=== PATIENT | male | born 1945 | race Caucasian/White ===

== ENCOUNTER 2019-07-02 14:06 | Outpatient (CLI) | payer MEDICARE, MEDICAID, SELFPAY ==
[2019-07-02 16:10] LABS: Prostate Specific Antigen 4.4 ng/mL (< OR = 4.0)
== END 2019-07-02 14:07 | disposition home or self-care (01) ==
LOC: ANHLAB 14:09
PROVIDERS: PCP Family Medicine; Visit Provider Family Medicine
DX: N40.1 Benign prostatic hyperplasia with lower urinary tract symptoms (principal)
CPT/HCPCS: 36415; 84153

== ENCOUNTER 2020-03-15 08:02 | Outpatient (CLI) | payer MEDICARE, MEDICAID, SELFPAY ==
[2020-03-15 08:29] LABS: Hematocrit 29.9 % (42.0-52.0); Mean Corpuscular HGB Conc 30.1 g/dl (32-36); Mean Corpuscular Hemoglobin 21.2 pg (26-34); Mean Corpuscular Volume 70.5 fl (80-100); Mean Platelet Volume 9.1 fl (7.4-10.4); Platelet Count Result 280 k/mm3 (150-375); Red Blood Count 4.24 M/mm3 (4.6-6.20); White Blood Count 5.9 K/mm3 (4.5-10.0)
[2020-03-15 08:42] LABS: Anion Gap 4 mmol/L (8-16); Blood Urea Nitrogen 23 mg/dL (9-20); Carbon Dioxide 29 mmol/L (22-30); Chloride 104 mmol/L (98-107); Cholesterol 141 mg/dL (0-200); Estimated Glomerular Filt Rate > 60; Glucose 109 mg/dL (75-110); HDL Direct 46 mg/dL; Magnesium 1.9 mg/dL (1.6-2.3); Potassium 4.2 mmol/L (3.4-5.0); Sodium 137 mmol/L (137-145); Triglycerides 57 mg/dL (<150)
[2020-03-15 08:52] LABS: LDL Cholesterol Direct 84 mg/dL
[2020-03-15 09:11] LABS: Prostate Specific Antigen 4.8 ng/mL (< OR = 4.0)
== END 2020-03-15 08:03 | disposition home or self-care (01) ==
PROVIDERS: PCP Family Medicine; Visit Provider Family Medicine
DX: E78.2 Mixed hyperlipidemia (principal); R25.2 Cramp and spasm; N40.1 Benign prostatic hyperplasia with lower urinary tract symptoms; E87.8 Other disorders of electrolyte and fluid balance, not elsewhere classified
CPT/HCPCS: 36415; 80048; 80061; 83735; 84153; 85027

== ENCOUNTER 2020-04-03 07:01 | Outpatient (NON) | payer MEDICARE, MEDICAID, SELFPAY ==
[2020-04-03 23:36] LABS: SARS-CoV-2 RNA PCR Negative
== END 2020-04-03 07:02 ==
LOC: ANHCOVIDDT 07:01
PROVIDERS: PCP Family Medicine; Visit Provider Family Medicine
DX: R68.89 Other general symptoms and signs (principal); Z20.828 Contact with and (suspected) exposure to other viral communicable diseases
CPT/HCPCS: 87635; C9803; U0003

== ENCOUNTER 2020-06-07 11:52 | Outpatient (CLI) | payer MEDICARE, MEDICAID, SELFPAY ==
[2020-06-07 12:35] LABS: Anion Gap 2 mmol/L (8-16); Blood Urea Nitrogen 23 mg/dL (9-20); Calcium 8.9 mg/dL (8.4-10.2); Carbon Dioxide 29 mmol/L (22-30); Chloride 106 mmol/L (98-107); Estimated Glomerular Filt Rate > 60; Glucose 115 mg/dL (75-110); Magnesium 1.7 mg/dL (1.6-2.3); Sodium 137 mmol/L (137-145)
[2020-06-07 13:40] LABS: Folic Acid 9.6 ng/mL (2.76->20)
== END 2020-06-07 11:53 | disposition home or self-care (01) ==
LOC: ANHLAB 11:54
PROVIDERS: Family Provider Family Medicine; PCP Family Medicine; Visit Provider Nurse Practitioner Family
DX: E87.8 Other disorders of electrolyte and fluid balance, not elsewhere classified (principal); R25.2 Cramp and spasm
CPT/HCPCS: 36415; 80048; 82607; 82746; 83735

== ENCOUNTER 2020-06-15 15:33 | Outpatient (CLI) | payer MEDICARE, MEDICAID, SELFPAY ==
--- NOTE | ~2020-06-15 | XR_ITS ---
XR lumbar spine 2-3V 06/15/2020 16:03 Indication: Low back pain. Legs feel tired. Procedure: 3 views of the lumbar spine Comparison: 08/24/2003 Findings: There is disc narrowing at all lumbar levels. There is grade 1 degenerative spondylolisthes is at L4-5 secondary to facet hypertrophy. There is moderate facet hypertrophy at L3-4, L4-5 and L5-S 1. There is atherosclerosis of the aorta which has progressed since prior study. No acute fracture or traumatic malalignment. Impression: 1: Interval progression of moderate lumbar spondylosis since prior examination with development of gr eli 1 degenerative spondylolisthesis at L4-5. Reviewed, dictated and finalized at location A. OWCASE TURNER Impression: 1: Interval progression of moderate lumbar spondylosis since prior examination with development of grade 1 degenerative spondylolisthesis at L4-5.
== END 2020-06-15 15:34 | disposition home or self-care (01) ==
LOC: ANHIMG 15:39
PROVIDERS: PCP Family Medicine; Visit Provider Nurse Practitioner Family
DX: R25.2 Cramp and spasm (principal); M47.896 Other spondylosis, lumbar region
CPT/HCPCS: 72100

== ENCOUNTER 2020-06-21 10:07 | Outpatient (CLI) | payer MEDICARE, MEDICAID, SELFPAY ==
--- NOTE | ~2020-06-21 | XR_ITS ---
EXAMINATION: XR hip BI wo pelvis INDICATION: Hip pain TECHNIQUE: Two views of each hip are obtained. COMPARISON: 07/03/2018; CT, 02/22/2015 FINDINGS: Bone alignment is normal. There is no fracture. There is mild osteoarthritis of the hips. A chronic sclerotic lesion is noted in the left femoral head. IMPRESSION: 1. Mild hip osteoarthritis without acute findings. Reviewed, dictated and finalized at location A. ER MILL OPERATOR
[2020-06-21 10:41] LABS: Hematocrit 23.6 % (42.0-52.0); Mean Corpuscular HGB Conc 27.1 g/dl (32-36); Mean Corpuscular Hemoglobin 16.8 pg (26-34); Mean Corpuscular Volume 61.9 fl (80-100); Mean Platelet Volume 9.4 fl (7.4-10.4); Platelet Count Result 366 k/mm3 (150-375); Red Blood Count 3.81 M/mm3 (4.6-6.20)
[2020-06-21 10:53] LABS: Hemoglobin 6.4 g/dL (14.0-18.0)
[2020-06-21 11:07] LABS: Anion Gap 5 mmol/L (8-16); Blood Urea Nitrogen 25 mg/dL (9-20); Carbon Dioxide 26 mmol/L (22-30); Chloride 109 mmol/L (98-107); Estimated Glomerular Filt Rate > 60; Glucose 108 mg/dL (75-110); Glucose 109 mg/dL (75-110); Potassium 4.5 mmol/L (3.4-5.0); Sodium 140 mmol/L (137-145)
== END 2020-06-21 10:08 | disposition home or self-care (01) ==
PROVIDERS: PCP Family Medicine; Visit Provider Nurse Practitioner Family
DX: R73.9 Hyperglycemia, unspecified (principal); D64.9 Anemia, unspecified; M16.0 Bilateral primary osteoarthritis of hip
CPT/HCPCS: 36415; 73521; 80048; 82947; 85027

== ENCOUNTER 2020-06-25 07:40 | Outpatient (RCR) | payer MEDICARE, MEDICAID, SELFPAY ==
[2020-06-24 11:44] LABS: Hematocrit 23.1 % (42.0-52.0)
[2020-06-24 12:37] LABS: Hemoglobin 6.4 g/dL (14.0-18.0)
[2020-06-25] VITALS (9 sets, daily range): BP systolic 126–139; BP diastolic 58–68; PULSE 86–100; RESP 14–16; TEMP 36.4–37.3; O2SAT 98–100
[2020-06-25] MEDS: diphenhydrAMINE HCl CAP 25 MG CAPSULE PO (08:46)
[2020-06-25] MEDS: methylPREDNISolone SOD SUCC 125 MG VIAL IV PUSH (08:46)
[2020-06-25] MEDS: SODIUM CHLORIDE 0.9% IV 250 ML 30 ML IV CONT (08:48)
[2020-06-25] MEDS: FUROSEMIDE INJ 40 MG/4 ML VIAL 20 MG IV PUSH (12:44)
== END 2020-09-22 23:59 | disposition home or self-care (01) ==
LOC: ANHCPCTRAN 07:40
PROVIDERS: PCP Family Medicine; Visit Provider Family Medicine
DX: D64.9 Anemia, unspecified (principal)
CPT/HCPCS: 36415; 36430; 85014; 85018; 86850; 86900; 86901; 86920; 96374; A9270; J1940; J2930; J7050; P9016

== ENCOUNTER 2020-07-15 08:31 | Outpatient (CLI) | payer MEDICARE, MEDICAID, SELFPAY ==
--- NOTE | 2020-07-15 08:36 | ECHO_ITS ---
Patient Info Name: Palmer Landry Age: 74 years : 1945 Gender: Male Ht: 68 in Wt: 173 lbs BSA: 1.95 m2 HR: 94 bpm BP: 154 / 75 mmHg Technical Quality: Good Exam Date: 07/15/2020 9:15 AM Exam Location: [facility] Patient Status: Outpatient Admit Date: 07/15/2020 Staff Ordering Physician: Delvis Hernández MD Materials Assistant: Latrice Cortez RDCS Attending Provider: Delvis Hernández MD Referring Physician: Edgar CHASE; Exam Type: CA echo doppler color flow Study Info Indications - CARDIAC MURMUR Complete two-dimensional, color flow and Doppler transthoracic echocardiogram is performed. Summary 1. Complete two-dimensional, color flow and Doppler transthoracic echocardiogram is performed. 2. Left ventricular chamber dimension is mildly enlarged. 3. Left ventricular systolic function is normal, estimated at 55-60%. 4. There is mildly increased left ventricular wall thickness. 5. The left ventricular diastolic function is grade I diastolic dysfunction. 6. E/e' 17 is elevated. 7. Global longitudinal strain is abnormal at -14.7%. 8. Left atrial chamber dimension is mildly enlarged. 9. There is moderate aortic valve sclerosis. 10. There is mild aortic valve stenosis based on a peak velocity of 242 cm/s, mean gradient of 15 mmHg, and aortic valve area of 1.6 cm2. 11. There is trace aortic valve regurgitation. 12. There is mild mitral valve regurgitation. 13. There is trace tricuspid valve regurgitation. 14. Mild pulmonary hypertension, estimated pulmonary arterial systolic pressure is 40 mmHg. Left Ventricle E/e' 17 is elevated. Global longitudinal strain is abnormal at -14.7%. Left ventricular chamber dimension is mildly enlarged. Left ventricular systolic function is normal, estimated at 55-60%. There is mildly increased left ventricular wall thickness. The left ventricular diastolic function is grade I diastolic dysfunction. Right Ventricle Right ventricular chamber dimension is normal. Right ventricular systolic function is normal. Left Atria Left atrial chamber dimension is mildly enlarged. Right Atria Right atrial chamber dimension is normal. Aortic Valve The aortic valve is not well visualized. Cannot determine number of aortic valve leaflets. There is mild aortic valve stenosis based on a peak velocity of 242 cm/s, mean gradient of 15 mmHg, and aortic valve area of 1.6 cm2. There is moderate aortic valve sclerosis. There is trace aortic valve regurgitation. Pulmonic Valve There is no pulmonic regurgitation. Mitral Valve There is no mitral valve stenosis. There is mild mitral valve regurgitation. Tricuspid Valve There is trace tricuspid valve regurgitation. Mild pulmonary hypertension, estimated pulmonary arterial systolic pressure is 40 mmHg. Pericardium/Pleural There is no pericardial effusion. Inferior Vena Cava Normal inferior vena cava with >50% collapse upon inspiration consistent with normal right atrial pressure, 5 mmHg. Aorta The aortic root size at the sinus of Valsalva is not well visualized. Left Ventricular Outflow Tract Name Value Normal LVOT 2D LVOT Diameter 2.0 cm LVOT Doppler
== END 2020-07-15 08:32 | disposition home or self-care (01) ==
PROVIDERS: PCP Family Medicine; Visit Provider Family Medicine
DX: R01.1 Cardiac murmur, unspecified (principal); I08.3 Combined rheumatic disorders of mitral, aortic and tricuspid valves
CPT/HCPCS: 0001A; 91300; 93306

== ENCOUNTER 2020-07-15 13:13 | Outpatient (CLI) | payer MEDICARE, MEDICAID, SELFPAY | END 2020-07-15 13:14 | disposition home or self-care (01) | LOC: ANHCOVIDVC 13:13 | PROVIDERS: PCP Family Medicine | DX: Z23 Encounter for immunization (principal) | CPT/HCPCS: 0001A; 91300 ==

== ENCOUNTER 2020-07-16 15:45 | Emergency (ER) | payer MEDICARE, MEDICAID, SELFPAY ==
[2020-07-16 15:59] VITALS: BP 136/70; PULSE 94; RESP 16; TEMP 36.6; O2SAT 98
--- NOTE | 2020-07-16 16:05 | ED.MALEGU ---
HPI - Male Genitourinary General Chief complaint: Urogenital-Male Stated complaint: blood in urine Time Seen by Provider: 07/16/20 16:04 History of Present Illness HPI Narrative: 74 yo male presents to the ED for brown urine. He reports that he urinated this afternoon around 5 PM and it was a brown color. He called his PCP and they told him to come to the ED. He went again once he was here and it was again brown. No dysuria, abdominal pain, hesitancy or other urinary complaint. He recently required a blood transfusion due to low hemoglobin. It appears that his stool was positive for blood. He denies any dark or bloody stools. Related Data Allergies Allergy/AdvReac Type Severity Reaction Status Date / Time No Known Allergies Allergy Verified 07/16/20 16:03 Review of Systems Constitutional: Constitutional: Denies chills, Denies fever(s) and Denies weakness Cardiovascular: Cardiovascular: Denies chest pain Respiratory: Respiratory: Denies dyspnea Gastrointestinal: Gastrointestinal: Denies abdominal pain, Denies nausea and Denies vomiting Genitourinary: Genitourinary: Reports hematuria, Reports oliguria and Denies dysuria Musculoskeletal: Musculoskeletal: Denies back pain Neurologic: Denies dizziness and Denies weakness PMFSH Past Medical History Medical History Bilateral leg cramps BMI 27.0-27.9,adult BMI 28.0-28.9,adult BPH loc w urin obs/LUTS Contracture of hand Electrolyte abnormality Heart murmur Heme positive stool Hip pain, bilateral Lumbago without sciatica Lumbar spondylosis Trigger finger Surgical History Surgical History History of appendectomy History of neck surgery Family History Family History Father Family history of malignant neoplasm Leukemia Sibling Family history of diabetes mellitus in first degree relative Alcohol abuse Obesity Diabetes mellitus Mother Family history of malignant neoplasm of ovary Social History Social History Smoking packs per day: 2 Smoking cigarettes per day: 40.0 Years smoked: 20 Smoking pack-years: 40.00 Smoking status: Former smoker Tobacco type: cigarettes Alcohol intake: current Drinks per week: 1 Substance use: current Substance use type: marijuana Other substance usage details: smokes 1 joint every night and every morning Last use: 07/12/20 Additional occupation/education comments: j[employer] Gender identity (if verbalized by the patient): Male Spiritual care concerns: No Exam Const: General: healthy appearing, no acute distress and alert HENMT: Head: normal to inspection Neck: Neck: normal visual inspection Resp: Effort & Inspection: normal respiratory effort Auscultation: clear to auscultation bilaterally Cardio: Rate: regular rate Rhythm: regular rhythm GI: Inspection: non-distended GI Palp: Yes Soft to palpation and No Tenderness to palpation present (GI) : General: Yes bladder normal to palpation Skin: General skin exam: normal color Neuro: General: patient oriented x3, moves all extremities and no focal motor deficits Speech: normal speech Gait exam (Neuro): Normal gait present Extrem: General: normal to inspection Course Vital Signs Vital signs: Vital Signs Temperature 36.6 C 07/16/20 15:59 Pulse Rate 94 07/16/20 15:59 Respiratory Rate 16 07/16/20 15:59 Blood Pressure 136/70 07/16/20 15:59 Pulse Oximetry 98 07/16/20 15:59 Temperature 36.6 C 07/16/20 17:42 Pulse Rate 69 07/16/20 17:42 Respiratory Rate 16 07/16/20 17:42 Blood Pressure 143/66 H 07/16/20 17:42 Pulse Oximetry 100 07/16/20 17:42 MDM - Male Genitourinary MDM Narrative Medical decision making narrative: No sign of infection. Aneudy
[2020-07-16 16:33] LABS: Basophils Absolute Auto 0.1 K/mm3 (0.0-0.1); Basophils Percent Auto 1.6 % (0.2-1.2); Eosinophils Absolute Auto 0.3 K/mm3 (0-0.3); Eosinophils Percent Auto 3.9 % (0-4.4); Hematocrit 29.8 % (42.0-52.0); Hemoglobin 8.6 g/dL (14.0-18.0); Immature Granulocyte Absolute 0.02 K/mm3 (0.00-0.031); Immature Granulocyte Percent A 0.3 % (0-0.5); Lymphocytes Absolute Auto 1.37 K/mm3 (0.9-3.2); Lymphocytes Percent Auto 20.4 % (18.3-44.2); Mean Corpuscular HGB Conc 28.9 g/dl (32-36); Mean Corpuscular Hemoglobin 18.9 pg (26-34); Mean Corpuscular Volume 65.6 fl (80-100); Mean Platelet Volume 8.5 fl (7.4-10.4); Monocytes Absolute Auto 0.7 K/mm3 (0.1-0.6); Monocytes Percent Auto 10.9 % (2.6-8.5); Neutrophils Absolute Auto 4.2 K/mm3 (1.3-6.7); Neutrophils Percent Auto 62.9 % (45.5-73.1); Platelet Count Result 354 k/mm3 (150-375); Red Blood Count 4.54 M/mm3 (4.6-6.20); Red Cell Distribution Width 25.1 % (11.5-14.5); White Blood Count 6.7 K/mm3 (4.5-10.0)
[2020-07-16 16:40] LABS: Add Urine Microscopic? YES; Appearance Urine Cloudy (Clear); Bilirubin Urine Negative (Negative); Blood Urine 3+ (Negative); Color Urine Red (Yellow); Glucose Urine UA Negative (Negative); Ketones Urine Negative (Negative); Leukocyte Esterase Ur Negative LEU/UL (Negative); Mucus Urine Heavy /lpf; Nitrate Urine Negative (Negative); Protein Urine 2+ mg/dL (Negative); RBC Urine >75 /hpf (0-2); Specific Grav Ur 1.021 (1.001-1.035); Squamous Epithelial Cell Urine Occasional /hpf (Few); Urobilinogen Urine Negative mg/dL (<2.0)
[2020-07-16 16:56] LABS: Alanine Aminotransferase 9 U/L (4-50); Albumin Level 3.9 g/dL (3.5-5.1); Alkaline Phosphatase 67 U/L (38-126); Anion Gap 4 mmol/L (8-16); Aspartate Amino Transferase 22 U/L (17-59); Bilirubin,Total 0.3 mg/dL (0.2-1.3); Blood Urea Nitrogen 25 mg/dL (9-20); Calcium 8.9 mg/dL (8.4-10.2); Carbon Dioxide 26 mmol/L (22-30); Chloride 109 mmol/L (98-107); Estimated CRCL calculation 54 ml/min; Estimated Glomerular Filt Rate > 60; Glucose 97 mg/dL (75-110); Potassium 3.9 mmol/L (3.4-5.0); Sodium 139 mmol/L (137-145)
[2020-07-16 17:42] VITALS: BP 143/66; PULSE 69; RESP 16; TEMP 36.6; O2SAT 100
== END 2020-07-16 17:43 | disposition home or self-care (01) ==
PROVIDERS: Emergency Provider Emergency Medicine; PCP Family Medicine
DX: R31.0 Gross hematuria (principal); N40.1 Benign prostatic hyperplasia with lower urinary tract symptoms; N13.8 Other obstructive and reflux uropathy; Z87.891 Personal history of nicotine dependence
CPT/HCPCS: 36415; 80053; 81001; 85025; 99283

== ENCOUNTER → 2020-07-20 02:22 | Outpatient (CLI) | payer MEDICARE, MEDICAID, SELFPAY ==
[2020-07-20 22:46] LABS: SARS-CoV-2 RNA PCR Negative
== END ==
PROVIDERS: PCP Family Medicine; Visit Provider Internal Medicine Gastroenterology
DX: Z01.812 Encounter for preprocedural laboratory examination (principal); Z20.822 Contact with and (suspected) exposure to COVID-19
CPT/HCPCS: C9803; U0003; U0005

== ENCOUNTER 2020-07-23 01:27 | Day surgery (SDC) | payer MEDICARE, MEDICAID, SELFPAY ==
[2020-07-12 12:53] VITALS: BMI 27.4
--- NOTE | 2020-07-23 10:36 | WPDANESEPPF ---
Anes - Initial Pre Proc Eval Procedure: Operation Date: 07/23/20 11:45 Proposed Procedures p Esophagogastroduodenoscopy & Colonoscopy - Agustín Henning MD Date/Time: 07/23/20 10:36 Surgeon: Agustín Henning MD Pre Op Diagnosis: Fecal Abnormalities, Anemia Patient Data Age: 74 Gender: M Height: 5 ft 8 in Weight: 82 kg Allergies Allergy/AdvReac Type Severity Reaction Status Date / Time No Known Allergies Allergy Verified 07/23/20 10:37 Home Medications Medication Instructions Recorded Confirmed Type tamsulosin 0.4 mg capsule 0.4 mg PO DAILY #30 cap 07/13/20 Rx Patient hx anesthesia problems: none Family hx anesthesia problems: none PMFSH Past Medical History Medical History Anemia Bilateral leg cramps BMI 27.0-27.9,adult BMI 28.0-28.9,adult BPH loc w urin obs/LUTS Contracture of hand Electrolyte abnormality Heart murmur Heme positive stool Hip pain, bilateral Lumbago without sciatica Lumbar spondylosis Trigger finger Urine blood Surgical History Surgical History History of appendectomy History of neck surgery Family History Family History Father Family history of malignant neoplasm Leukemia Sibling Family history of diabetes mellitus in first degree relative Alcohol abuse Obesity Diabetes mellitus Mother Family history of malignant neoplasm of ovary Social History Social History Smoking packs per day: 2 Smoking cigarettes per day: 40.0 Years smoked: 20 Smoking pack-years: 40.00 Tobacco type: cigarettes Alcohol intake: current Drinks per week: 1 Substance use: current Substance use type: marijuana Other substance usage details: smokes 1 joint every night and every morning Last use: 07/12/20 Living arrangements: alone Additional occupation/education comments: goy[employer] Gender identity (if verbalized by the patient): Male Spiritual care concerns: No Anes - Eval Final PreProcedure Day of Procedure 07/23/20 10:36 Patient weight: overweight Heart: regular rate and rhythm Lungs: decreased breath sounds Airway: Mallampati scale class II Last oral intake: >/= 8 hours ASA classification: III Emergent: no Anesthetic plan: proceed Anesthesia type and monitoring: general GIVS and standard monitoring Informed Consent: The patient's anesthetic plan and its attendant risks and benefits were discussed with the patient/family/POA. Questions were solicited and answers provided to the satisfaction of the patient/family/POA.
[2020-07-23 10:38] VITALS: BP 126/57; PULSE 90; RESP 20; TEMP 36.4; O2SAT 100; BMI 26.4
[2020-07-23] MEDS: LACTATED RINGERS 1,000 ML 150 ML IV CONT (10:55)
--- NOTE | 2020-07-23 11:31 | PM.HPGS ---
History of Present Illness History of Present Illness Consent: Risks, benefits, and alternatives have been discussed and questions answered. Patient agrees to proceed with procedure. Chief complaint: Fecal Abnormalities, Anemia Narrative: Palmer Landry Sr. is a 74 year old male with BRENNA and blood in stools, last colonoscopy 2015 with diverticulosis, denies upper gi symptoms. Review of Systems Constitutional: Constitutional: Denies headache(s) and Denies weakness Eyes: Eyes: Denies blurry vision ENT: Reports Normal hearing present, Denies headache(s) and Denies neck pain Cardiovascular: Cardiovascular: Denies chest pain and Denies dyspnea Respiratory: Respiratory: Denies dyspnea Gastrointestinal: Gastrointestinal: Reports no additional gastrointestinal complaints Genitourinary: Genitourinary: Denies dysuria Musculoskeletal: Musculoskeletal: Denies neck pain Integumentary/Breasts: Skin/Breast: Denies dry skin Neurologic: Reports Normal hearing present, Denies headache(s) and Denies weakness Psychiatric: Psychiatric: Denies anxiety Endocrine: Endocrine: Denies change in body appearance Hematologic/Lymphatic: Hematologic/Lymphatic: Denies easy bleeding Allergic/Immunologic: Allergic/Immunologic: Denies urticaria PMFSH Past Medical History Medical History Anemia Bilateral leg cramps BMI 27.0-27.9,adult BMI 28.0-28.9,adult BPH loc w urin obs/LUTS Contracture of hand Electrolyte abnormality Heart murmur Heme positive stool Hip pain, bilateral Lumbago without sciatica Lumbar spondylosis Trigger finger Urine blood Surgical History Surgical History History of appendectomy History of neck surgery Family History Family History Father Family history of malignant neoplasm Leukemia Sibling Family history of diabetes mellitus in first degree relative Alcohol abuse Obesity Diabetes mellitus Mother Family history of malignant neoplasm of ovary Social History Social History Smoking packs per day: 2 Smoking cigarettes per day: 40.0 Years smoked: 20 Smoking pack-years: 40.00 Tobacco type: cigarettes Alcohol intake: current Drinks per week: 1 Substance use: current Substance use type: marijuana Other substance usage details: smokes 1 joint every night and every morning Last use: 07/12/20 Living arrangements: alone Additional occupation/education comments: goyal Gender identity (if verbalized by the patient): Male Spiritual care concerns: No Meds Home Medications and Allergies Home Medications Medication Instructions Recorded Confirmed Type tamsulosin 0.4 mg capsule 0.4 mg PO DAILY #30 cap 07/13/20 Rx Allergies Allergy/AdvReac Type Severity Reaction Status Date / Time No Known Allergies Allergy Verified 07/23/20 10:37 Vital Signs Vital Signs - 24 hr 07/23/20 10:38 Temperature 97.6 F Pulse Rate 90 Respiratory Rate 20 Blood Pressure 126/57 L Pulse Oximetry 100 Exam Const: General: comfortable and no acute distress HENMT: General nose exam: Normal nares present Eyes: General: appearance normal, both eyes and all related structures Neck: Neck: no JVD Resp: Auscultation: clear to auscultation bilaterally Cardio: Rate: regular rate Rhythm: regular rhythm GI: Inspection: non-distended GI Palp: Yes Soft to palpation Skin: General skin exam: normal color Neuro: General: gait normal Speech: normal speech Extrem: General: normal to inspection Psych: Mental Status: mental status grossly normal Assessment and Plan Assessment and plan (1) Heme positive stool: Code(s): R19.5 - Other fecal abnormalities Status: Acute Assessment and Plan: colonoscopy (2)
[2020-07-23] MEDS: BENZOCAINE (*SP) 60 ML SPRAY CAN (HURRICAINE) 1 SPRAY MUCOUS MEM (11:35)
[2020-07-23 12:14] VITALS: BP 109/60; PULSE 78; RESP 17; O2SAT 99
[2020-07-23 12:24] VITALS: BP 130/68; PULSE 75; RESP 15; O2SAT 99
[2020-07-23 12:34] VITALS: BP 137/78; PULSE 84; RESP 18; O2SAT 100
== END 2020-07-23 13:00 | disposition home or self-care (01) ==
PROVIDERS: PCP Family Medicine; Visit Provider Internal Medicine Gastroenterology
PROC: 0DJ08ZZ Inspection of Upper Intestinal Tract, Via Natural or Artificial Opening Endoscopic (ICD-10-PCS; CPT 43235; principal; 2020-07-23 11:45)
DX: R19.5 Other fecal abnormalities (principal); K55.20 Angiodysplasia of colon without hemorrhage; K31.819 Angiodysplasia of stomach and duodenum without bleeding; D50.9 Iron deficiency anemia, unspecified; K57.30 Diverticulosis of large intestine without perforation or abscess without bleeding; N40.1 Benign prostatic hyperplasia with lower urinary tract symptoms; M24.549 Contracture, unspecified hand; R01.1 Cardiac murmur, unspecified; M47.816 Spondylosis without myelopathy or radiculopathy, lumbar region; M65.30 Trigger finger, unspecified finger; Z90.49 Acquired absence of other specified parts of digestive tract; Q27.33 Arteriovenous malformation of digestive system vessel
CPT/HCPCS: 45388; 45385; 45380; 45381; 43270; 88305; J2704; J7120

== ENCOUNTER 2020-08-05 13:24 | Outpatient (CLI) | payer MEDICARE, MEDICAID, SELFPAY | END 2020-08-05 13:25 | disposition home or self-care (01) | LOC: ANHCOVIDVC 13:24 | PROVIDERS: PCP Family Medicine; Visit Provider Family Medicine | DX: Z23 Encounter for immunization (principal) | CPT/HCPCS: 0002A; 91300 ==

== ENCOUNTER 2020-08-11 14:47 | Outpatient (CLI) | payer MEDICARE, MEDICAID, SELFPAY ==
[2020-08-11 15:18] LABS: Hemoglobin 8.4 g/dL (14.0-18.0); Mean Corpuscular Hemoglobin 18.6 pg (26-34); Mean Corpuscular Volume 64.3 fl (80-100); Platelet Count Result 376 k/mm3 (150-375); Red Blood Count 4.51 M/mm3 (4.6-6.20)
[2020-08-11 17:27] LABS: Iron 33 ug/dL (49-181)
[2020-08-11 17:36] LABS: Percent Iron Saturation 8 % (20-50)
[2020-08-11 18:57] LABS: Alanine Aminotransferase 8 U/L (4-50); Albumin Level 4.1 g/dL (3.5-5.1); Alkaline Phosphatase 68 U/L (38-126); Anion Gap 5 mmol/L (8-16); Aspartate Amino Transferase 23 U/L (17-59); Bilirubin,Total 0.1 mg/dL (0.2-1.3); Blood Urea Nitrogen 25 mg/dL (9-20); Calcium 9.3 mg/dL (8.4-10.2); Carbon Dioxide 29 mmol/L (22-30); Chloride 107 mmol/L (98-107); Cholesterol 190 mg/dL (0-200); Estimated Glomerular Filt Rate > 60; Glucose 108 mg/dL (75-110); HDL Direct 42 mg/dL; Potassium 4.1 mmol/L (3.4-5.0); Sodium 141 mmol/L (137-145); Triglycerides 110 mg/dL (<150)
[2020-08-11 19:08] LABS: LDL Cholesterol Direct 127 mg/dL
[2020-08-11 19:28] LABS: Thyroid Stimulating Hormone 0.884 uIU/mL (0.465-4.680)
== END 2020-08-11 14:48 | disposition home or self-care (01) ==
PROVIDERS: PCP Family Medicine; Visit Provider Nurse Practitioner Family
DX: Z12.5 Encounter for screening for malignant neoplasm of prostate (principal); M54.5 Low back pain; D50.9 Iron deficiency anemia, unspecified; D64.9 Anemia, unspecified; E78.5 Hyperlipidemia, unspecified; N40.1 Benign prostatic hyperplasia with lower urinary tract symptoms
CPT/HCPCS: 36415; 80053; 80061; 82607; 83540; 83550; 84153; 84443; 85027; G0103

== ENCOUNTER 2020-09-01 10:50 | Outpatient (CLI) | payer MEDICARE, MEDICAID, SELFPAY ==
[2020-09-01 11:24] LABS: Basophils Absolute Auto 0.1 K/mm3 (0.0-0.1); Basophils Percent Auto 1.6 % (0.2-1.2); Eosinophils Absolute Auto 0.2 K/mm3 (0-0.3); Eosinophils Percent Auto 3.1 % (0-4.4); Hematocrit 28.7 % (42.0-52.0); Hemoglobin 8.2 g/dL (14.0-18.0); Immature Granulocyte Absolute 0.01 K/mm3 (0.00-0.031); Immature Granulocyte Percent A 0.1 % (0-0.5); Mean Corpuscular HGB Conc 28.6 g/dl (32-36); Mean Corpuscular Hemoglobin 18.1 pg (26-34); Mean Corpuscular Volume 63.4 fl (80-100); Mean Platelet Volume 8.4 fl (7.4-10.4); Monocytes Absolute Auto 0.7 K/mm3 (0.1-0.6); Monocytes Percent Auto 10.2 % (2.6-8.5); Neutrophils Absolute Auto 4.5 K/mm3 (1.3-6.7); Platelet Count Result 325 k/mm3 (150-375); Red Blood Count 4.53 M/mm3 (4.6-6.20); Red Cell Distribution Width 21.7 % (11.5-14.5); White Blood Count 6.9 K/mm3 (4.5-10.0)
[2020-09-01 11:33] LABS: Anion Gap 5 mmol/L (8-16); Blood Urea Nitrogen 26 mg/dL (9-20); Calcium 9.1 mg/dL (8.4-10.2); Carbon Dioxide 29 mmol/L (22-30); Chloride 106 mmol/L (98-107); Estimated Glomerular Filt Rate > 60; Glucose 104 mg/dL (75-110); Potassium 4.2 mmol/L (3.4-5.0); Sodium 140 mmol/L (137-145)
[2020-09-01 12:00] LABS: Platelet Estimate Adequate (Adequate)
[2020-09-01 12:01] LABS: Hypochromasia 2+ (NORMAL); Iron 18 ug/dL (49-181); Ovalocytes 2+ (NORMAL); Target Cells 1+ (NORMAL); Tear Drop Cells 1+ (NORMAL)
[2020-09-01 12:11] LABS: Percent Iron Saturation 4 % (20-50)
== END 2020-09-01 10:51 | disposition home or self-care (01) ==
LOC: ANHLAB 10:54
PROVIDERS: PCP Family Medicine; Visit Provider Physician Assistant Medical
DX: D50.0 Iron deficiency anemia secondary to blood loss (chronic) (principal); R79.9 Abnormal finding of blood chemistry, unspecified
CPT/HCPCS: 36415; 80048; 83540; 83550; 85025

== ENCOUNTER 2020-09-22 14:10 | Outpatient (CLI) | payer MEDICARE, MEDICAID, SELFPAY ==
[2020-09-22 14:36] LABS: Basophils Absolute Auto 0.1 K/mm3 (0.0-0.1); Basophils Percent Auto 1.8 % (0.2-1.2); Eosinophils Absolute Auto 0.2 K/mm3 (0-0.3); Eosinophils Percent Auto 3.2 % (0-4.4); Hematocrit 27.4 % (42.0-52.0); Hemoglobin 7.6 g/dL (14.0-18.0); Immature Granulocyte Absolute 0.03 K/mm3 (0.00-0.031); Immature Granulocyte Percent A 0.5 % (0-0.5); Lymphocytes Absolute Auto 1.34 K/mm3 (0.9-3.2); Lymphocytes Percent Auto 20.6 % (18.3-44.2); Mean Corpuscular HGB Conc 27.7 g/dl (32-36); Mean Corpuscular Hemoglobin 18.2 pg (26-34); Mean Corpuscular Volume 65.6 fl (80-100); Mean Platelet Volume 8.6 fl (7.4-10.4); Monocytes Absolute Auto 0.7 K/mm3 (0.1-0.6); Neutrophils Absolute Auto 4.1 K/mm3 (1.3-6.7); Neutrophils Percent Auto 62.9 % (45.5-73.1); Platelet Count Result 307 k/mm3 (150-375); Red Blood Count 4.18 M/mm3 (4.6-6.20); White Blood Count 6.5 K/mm3 (4.5-10.0)
[2020-09-22 14:39] LABS: Hypochromasia 2+ (NORMAL); Platelet Estimate Adequate (Adequate)
[2020-09-22 14:40] LABS: Anisocytosis 1+ (NORMAL); Ovalocytes 1+ (NORMAL); Poikilocytosis 1+ (NORMAL)
[2020-09-22 16:23] LABS: Iron 18 ug/dL (49-181)
[2020-09-22 16:25] LABS: Alanine Aminotransferase 22 U/L (4-50); Albumin Level 3.8 g/dL (3.5-5.1); Alkaline Phosphatase 81 U/L (38-126); Anion Gap 5 mmol/L (8-16); Aspartate Amino Transferase 27 U/L (17-59); Bilirubin,Total 0.2 mg/dL (0.2-1.3); Blood Urea Nitrogen 25 mg/dL (9-20); Calcium 9.7 mg/dL (8.4-10.2); Carbon Dioxide 27 mmol/L (22-30); Chloride 106 mmol/L (98-107); Estimated Glomerular Filt Rate > 60; Glucose 95 mg/dL (75-110); Potassium 4.4 mmol/L (3.4-5.0); Sodium 138 mmol/L (137-145)
[2020-09-22 16:35] LABS: Percent Iron Saturation 4 % (20-50)
[2020-09-22 17:32] LABS: Folic Acid 7.1 ng/mL (2.76->20)
== END 2020-09-22 14:11 | disposition home or self-care (01) ==
PROVIDERS: PCP Family Medicine; Visit Provider Internal Medicine Hematology & Oncology
DX: D64.9 Anemia, unspecified (principal)
CPT/HCPCS: 36415; 80053; 82607; 82728; 82746; 83540; 83550; 85025

== ENCOUNTER 2021-03-16 13:59 | Outpatient (CLI) | payer MEDICARE, MEDICAID, SELFPAY ==
[2021-03-16 14:53] LABS: Basophils Absolute Auto 0.1 K/mm3 (0.0-0.1); Eosinophils Absolute Auto 0.3 K/mm3 (0-0.3); Eosinophils Percent Auto 3.7 % (0-4.4); Hematocrit 40.5 % (42.0-52.0); Hemoglobin 12.8 g/dL (14.0-18.0); Immature Granulocyte Absolute 0.03 K/mm3 (0.00-0.031); Immature Granulocyte Percent A 0.4 % (0-0.5); Lymphocytes Absolute Auto 1.41 K/mm3 (0.9-3.2); Mean Corpuscular HGB Conc 31.6 g/dl (32-36); Mean Corpuscular Hemoglobin 28.8 pg (26-34); Mean Platelet Volume 9.7 fl (7.4-10.4); Monocytes Absolute Auto 0.7 K/mm3 (0.1-0.6); Monocytes Percent Auto 10.4 % (2.6-8.5); Neutrophils Absolute Auto 4.3 K/mm3 (1.3-6.7); Neutrophils Percent Auto 63.5 % (45.5-73.1); Platelet Count Result 236 k/mm3 (150-375); Red Blood Count 4.45 M/mm3 (4.6-6.20); Red Cell Distribution Width 14.2 % (11.5-14.5); White Blood Count 6.7 K/mm3 (4.5-10.0)
[2021-03-16 15:06] LABS: Alanine Aminotransferase 11 U/L (4-50); Albumin Level 4.3 g/dL (3.5-5.1); Alkaline Phosphatase 71 U/L (38-126); Anion Gap 7 mmol/L (8-16); Aspartate Amino Transferase 22 U/L (17-59); Bilirubin,Total 0.5 mg/dL (0.2-1.3); Blood Urea Nitrogen 28 mg/dL (9-20); Calcium 9.5 mg/dL (8.4-10.2); Carbon Dioxide 25 mmol/L (22-30); Chloride 108 mmol/L (98-107); Estimated Glomerular Filt Rate > 60; Glucose 93 mg/dL (65-110); Potassium 4.5 mmol/L (3.4-5.0); Sodium 140 mmol/L (137-145)
[2021-03-16 15:09] LABS: Add Urine Microscopic? NO; Appearance Urine Clear (Clear); Bilirubin Urine Negative (Negative); Blood Urine Negative (Negative); Color Urine Yellow (Yellow); Glucose Urine UA Negative (Negative); Ketones Urine Negative (Negative); Leukocyte Esterase Ur Negative LEU/UL (NEGATIVE); Nitrate Urine Negative (Negative); Protein Urine Negative (Negative); Urobilinogen Urine Negative mg/dL (<2.0)
== END 2021-03-16 14:00 | disposition home or self-care (01) ==
PROVIDERS: PCP Family Medicine; Visit Provider Nurse Practitioner Family
DX: R10.9 Unspecified abdominal pain (principal); D50.0 Iron deficiency anemia secondary to blood loss (chronic); R79.9 Abnormal finding of blood chemistry, unspecified
CPT/HCPCS: 36415; 80053; 81003; 85025

== ENCOUNTER → 2021-04-06 02:14 | Outpatient (CLI) | payer OTHER, SELFPAY ==
[2021-04-06 18:14] LABS: SARS-CoV-2 RNA PCR Negative
== END ==
PROVIDERS: PCP Family Medicine; Visit Provider Nurse Practitioner Family
DX: R68.89 Other general symptoms and signs (principal); Z20.822 Contact with and (suspected) exposure to COVID-19
CPT/HCPCS: C9803; U0003; U0005

== ENCOUNTER 2021-04-25 13:21 | Emergency (ER) | payer OTHER, SELFPAY ==
[2021-04-25 14:51] VITALS: BP 149/64; PULSE 80; RESP 18; TEMP 36.5; O2SAT 99
[2021-04-25 15:43] LABS: Add Urine Microscopic? YES; Appearance Urine Cloudy (Clear); Bilirubin Urine Negative (Negative); Blood Urine 3+ (Negative); Color Urine Red (Yellow); Glucose Urine UA Negative (Negative); Ketones Urine Negative (Negative); Leukocyte Esterase Ur Negative LEU/UL (Negative); Mucus Urine Few /lpf; Nitrate Urine Negative (Negative); Protein Urine 2+ mg/dL (Negative); RBC Urine >75 /hpf (0-2); Specific Grav Ur 1.019 (1.001-1.035); Urobilinogen Urine Negative mg/dL (<2.0); WBC Urine 0-3 /hpf
[2021-04-25 15:57] VITALS: BP 133/66; PULSE 76; RESP 18; TEMP 36.9; O2SAT 100
[2021-04-25 18:38] VITALS: BP 154/69; PULSE 56; RESP 18; TEMP 37.1; O2SAT 100
--- NOTE | 2021-04-25 19:56 | PC.NURSE ---
Pt ambulates out of ED with no sign of distress prior to seeing provider. No IV.
== END 2021-04-26 01:55 | disposition left against medical advice (07) ==
PROVIDERS: Physician Assistant; PCP Family Medicine
DX: R31.9 Hematuria, unspecified (principal)
CPT/HCPCS: 81001; 99199

== ENCOUNTER 2021-04-26 14:50 | Emergency (ER) | payer OTHER, SELFPAY ==
--- NOTE | ~2021-04-26 | CT_ITS ---
EXAMINATION: CT abdomen pelvis w con DATE: 04/26/2021 19:21 INDICATION: Hematuria TECHNIQUE: Computed tomography (CT) of the abdomen and pelvis was performed with 100 cc Omnipaque 350 intravenous contrast. The dose-length product was 795.93 mGy-cm. Automated exposure control and iter ative reconstruction technique were employed. COMPARISON: CT dated 02/22/2015. FINDINGS: Lung bases are unremarkable. Heart size is normal. No significant pleural or pericardial ef fusion. Moderate atherosclerosis. No lymphadenopathy. Mild aortic ectasia with focal saccular infrare nal saccular aneurysm measuring 3.1 cm. Colonic diverticulosis without evidence for diverticulitis. The liver, spleen, pancreas, adrenal glands and kidneys are unremarkable. There are parapelvic cysts of the left kidney. No hydronephrosis. There is a soft tissue mass along the left posterior lateral m argin of the bladder measuring approximately 3.2 x 2.1 cm, suspicious for transitional cell carcinoma . Prostate is enlarged. There is osteoarthritis of the hips. Mild lumbar spondylosis with right 1 spo ndylolisthesis at L4-5. IMPRESSION: 1. Soft tissue mass posterior lateral margin of the bladder measuring 3.2 x 2.1 cm, suspicious for tr ansitional cell carcinoma. Recommend urology consultation. 2: Infrarenal abdominal aortic aneurysm measuring 3.1 cm. Reviewed, dictated and finalized at location A. LING TEACHER IMPRESSION: 1. Soft tissue mass posterior lateral margin of the bladder measuring 3.2 x 2.1 cm, suspicious for transitional cell carcinoma. Recommend urology consultation . 2: Infrarenal abdominal aortic aneurysm measuring 3.1 cm.
[2021-04-26 14:52] VITALS: BP 157/68; PULSE 91; RESP 20; TEMP 36.6; O2SAT 98
[2021-04-26 16:59] VITALS: RESP 16
[2021-04-26 17:13] VITALS: BP 155/78; PULSE 83; RESP 16; TEMP 36.8; O2SAT 99
[2021-04-26 17:22] LABS: Add Urine Microscopic? YES; Appearance Urine Cloudy (Clear); Bilirubin Urine Negative (Negative); Blood Urine 3+ (Negative); Color Urine Red (Yellow); Glucose Urine UA Negative (Negative); Ketones Urine Negative (Negative); Leukocyte Esterase Ur Negative LEU/UL (Negative); Mucus Urine Rare /lpf; Nitrate Urine Negative (Negative); Protein Urine 1+ mg/dL (Negative); RBC Urine >75 /hpf (0-2); Specific Grav Ur 1.008 (1.001-1.035); Urobilinogen Urine Negative mg/dL (<2.0); WBC Urine 21-30 /hpf
--- NOTE | 2021-04-26 17:22 | ED.GENADULT ---
HPI - General Adult General Chief complaint: Urogenital-Male Stated complaint: Blood in Urine Time Seen by Provider: 04/26/21 17:18 Source: patient and RN notes reviewed Mode of arrival: ambulatory Limitations: no limitations History of Present Illness HPI narrative: Patient presents with painless hematuria started 2 days ago, this morning past 2 pieces of blood clot and after that his urine became pink. Patient denies any fever, chills, nausea, vomiting, abdominal pain or burning urination or difficulty urinating Patient reported having similar symptoms 1 year ago and urology work-up showed nothing serious. Patient on baby aspirin who did not take for the last 2 days. Related Data Home Medications Medication Instructions Recorded Confirmed ferrous sulfate 325 mg PO TID 10/07/20 03/24/21 Allergies Allergy/AdvReac Type Severity Reaction Status Date / Time No Known Allergies Allergy Verified 04/25/21 14:54 Review of Systems Review of Systems: CONSTITUTIONAL: Denies fever, chills, or sweats. EYES: Denies visual changes, redness, or discharge. ENT: Denies rhinorrhea, congestion, sore throat, or otalgia. CARDIOVASCULAR: Denies chest pain, palpitations, or edema. RESPIRATORY: Denies cough or dyspnea. GASTROINTESTINAL: Denies abdominal pain, nausea, vomiting, or diarrhea. GENITOURINARY: Denies dysuria or hematuria. SKIN: Denies rash or itching. MUSCULOSKELETAL: Denies back pain, joint pain, or myalgia. NEUROLOGIC: Denies headache, numbness, or weakness. PSYCHIATRIC: Denies anxiety or depression. [facility] Past Medical History Medical History Abnormal MRI, lumbar spine Adult BMI 26.0-26.9 kg/sq m Anemia Bilateral leg cramps BMI 27.0-27.9,adult BMI 28.0-28.9,adult BPH loc w urin obs/LUTS Contracture of hand Electrolyte abnormality Heart murmur Heme positive stool Hip pain, bilateral Iron deficiency anemia Lumbago without sciatica Lumbar spondylosis Trigger finger Urine blood Surgical History Surgical History History of appendectomy History of neck surgery Family History Family History Father Family history of malignant neoplasm Leukemia Sibling Family history of diabetes mellitus in first degree relative Alcohol abuse Obesity Diabetes mellitus Mother Family history of malignant neoplasm of ovary Social History Social History Smoking packs per day: 2 Smoking cigarettes per day: 40.0 Years smoked: 20 Smoking pack-years: 40.00 Smoking status: Current every day smoker Tobacco type: cigarettes Second hand tobacco smoke exposure: No Smoking end date: 10/10/73 Alcohol intake: current Drinks per week: 1 Alcohol use details: rarely Substance use: current Substance use type: marijuana Other substance usage details: smokes 1 joint every night and every morning Last use: 07/12/20 Additional occupation/education comments: jay jay Gender identity (if verbalized by the patient): Male Spiritual care concerns: No Exam Narrative: General appearance: Well-developed, well-nourished Skin: Normal color Head: Normocephalic, nontraumatic Eyes: Clear conjunctiva ENT: Oropharynx normal, ears normal, nose normal Neck: Supple, nontender Chest and respiratory: Airway patent, no respiratory distress, no accessory muscle use Heart: Regular rate/rhythm Abdomen: Soft, nontender, no organomegaly, quiet bowel sounds Vascular: Normal peripheral pulses, normal capillary refill. Musculoskeletal: Normal range of motion, nontender back Neurologic: Alert and oriented ?3, PEDIATRIC ONCOLOGIST is normal as tested, no gross motor deficit
[2021-04-26 18:40] LABS: Basophils Absolute Auto 0.1 K/mm3 (0.0-0.1); Eosinophils Absolute Auto 0.2 K/mm3 (0-0.3); Hemoglobin 13.4 g/dL (14.0-18.0); Immature Granulocyte Absolute 0.02 K/mm3 (0.00-0.031); Immature Granulocyte Percent A 0.3 % (0-0.5); Lymphocytes Absolute Auto 1.76 K/mm3 (0.9-3.2); Mean Corpuscular HGB Conc 32.7 g/dl (32-36); Mean Corpuscular Hemoglobin 28.2 pg (26-34); Mean Corpuscular Volume 86.1 fl (80-100); Monocytes Absolute Auto 0.8 K/mm3 (0.1-0.6); Monocytes Percent Auto 9.8 % (2.6-8.5); Neutrophils Absolute Auto 4.8 K/mm3 (1.3-6.7); Neutrophils Percent Auto 62.9 % (45.5-73.1); Platelet Count Result 237 k/mm3 (150-375); Red Blood Count 4.76 M/mm3 (4.6-6.20); Red Cell Distribution Width 13.5 % (11.5-14.5); White Blood Count 7.7 K/mm3 (4.5-10.0)
[2021-04-26 18:55] LABS: Alanine Aminotransferase 13 U/L (4-50); Albumin Level 4.5 g/dL (3.5-5.1); Alkaline Phosphatase 73 U/L (38-126); Anion Gap 6 mmol/L (8-16); Aspartate Amino Transferase 27 U/L (17-59); Bilirubin,Total 0.3 mg/dL (0.2-1.3); Blood Urea Nitrogen 23 mg/dL (9-20); Calcium 9.9 mg/dL (8.4-10.2); Carbon Dioxide 28 mmol/L (22-30); Chloride 101 mmol/L (98-107); Estimated CRCL calculation 58 ml/min; Estimated Glomerular Filt Rate > 60; Glucose 95 mg/dL (65-110); Potassium 4.3 mmol/L (3.4-5.0); Sodium 135 mmol/L (137-145)
[2021-04-26 19:21] VITALS: BP 183/78; PULSE 83; RESP 18; O2SAT 100
[2021-04-26 20:35] VITALS: BP 156/78; PULSE 88; RESP 18; O2SAT 98
== END 2021-04-26 20:28 | disposition home or self-care (01) ==
PROVIDERS: Emergency Medicine; Emergency Provider Emergency Medicine; PCP Family Medicine
DX: N32.9 Bladder disorder, unspecified (principal); N40.1 Benign prostatic hyperplasia with lower urinary tract symptoms; N13.8 Other obstructive and reflux uropathy; D50.9 Iron deficiency anemia, unspecified; F17.210 Nicotine dependence, cigarettes, uncomplicated; I71.4 Abdominal aortic aneurysm, without rupture
CPT/HCPCS: 36415; 74177; 80053; 81001; 85025; 87086; 99284; Q9967

== ENCOUNTER 2021-10-19 10:30 | Outpatient (CLI) | payer MEDICARE, MEDICAID, SELFPAY ==
--- NOTE | ~2021-10-19 | US_ITS ---
EXAMINATION: US carotid duplex BI DATE: 10/19/2021 11:13 INDICATION: Carotid bruit TECHNIQUE: Grayscale, color Doppler, and pulsed Doppler images of the cervical carotid arteries were obtained. The degree of vessel stenosis is placed in one of the following categories: normal, <50%, 5 0-69%, >=70% but less than near-occlusion, near-occlusion, or total occlusion. Note that percent sten osis relative to normal distal artery lumen diameter is indirectly measured from velocity measurement s as described by Alfonzo, et al. Radiology 2003; [id number]. Notes: Normal: Peak systolic velocity <125 centimeters/sec and no plaque <50%. Peak systolic velocity <125 ( EDV <40; ICA/CCA PSV ratio <2.0; used these factors only a tandem lesions or low cardiac output or co ntralateral disease) 50-69 %: PSV 125-230 (EDV 40-100; ratio 2-4) >= 70% but less than near occlusion: PSV greater than 230 (EDV > 100; ratio> 4.0) Near Occlusion: PSV that is variable; markedly narrowed lumen Occlusion: Absent flow on color/spectral Doppler and no lumen on woods scale. COMPARISON: None. FINDINGS: RIGHT: The right common carotid artery (CCA) peak systolic velocity (PSV) is 78 cm/s. The right internal car otid artery (ICA) PSV is 77 cm/s. The right ICA end-diastolic velocity (EDV) is 19 cm/s. The right IC A/CCA PSV ratio is 1.0. The external carotid artery (ECA) PSV is 104 cm/s. There is antegrade flow in the right vertebral artery. LEFT: The left CCA PSV is 91 cm/s. The left ICA PSV is 102 cm/s. The left ICA EDV is 35 cm/s. The left ICA/ CCA PSV ratio is 1.1. The ECA PSV is 88 cm/s. There is antegrade flow in the left vertebral artery. IMPRESSION: 1. Less than 50% stenosis in the right internal carotid artery by sonographic criteria. 2. Less than 50% stenosis in the left internal carotid artery by sonographic criteria. Reviewed, dictated and finalized at location B. IMPRESSION: 1. Less than 50% stenosis in the right internal carotid artery by sonographic angel giang. 2. Less than 50% stenosis in the left internal carotid artery by sonographic micheal tristan.
== END 2021-10-19 10:31 | disposition home or self-care (01) ==
PROVIDERS: PCP Family Medicine; Visit Provider Internal Medicine Cardiovascular Disease
DX: R09.89 Other specified symptoms and signs involving the circulatory and respiratory systems (principal)
CPT/HCPCS: 93880

== ENCOUNTER 2021-11-16 08:56 | Outpatient (CLI) | payer MEDICARE, MEDICAID, SELFPAY ==
[2021-11-16 09:33] LABS: Cholesterol 219 mg/dL (0-200); HDL Direct 40 mg/dL; Triglycerides 83 mg/dL (<150)
[2021-11-16 09:44] LABS: LDL Cholesterol Direct 144 mg/dL
== END 2021-11-16 08:57 | disposition home or self-care (01) ==
LOC: ANHLAB 09:00
PROVIDERS: PCP Family Medicine; Visit Provider Internal Medicine Cardiovascular Disease
DX: E78.5 Hyperlipidemia, unspecified (principal)
CPT/HCPCS: 36415; 80061

== ENCOUNTER 2021-12-23 08:53 | Outpatient (CLI) | payer MEDICARE, MEDICAID, SELFPAY ==
--- NOTE | 2021-12-23 08:56 | ECHO_ITS ---
Patient Info Name: Palmer Landry Age: 76 years : 1945 Gender: Male Ht: 68 in Wt: 170 lbs BSA: 1.94 m2 HR: 69 bpm BP: 154 / 84 mmHg Heart Rhythm: Sinus Rhythm Technical Quality: Good Exam Date: 12/23/2021 9:23 AM Exam Location: [facility] Patient Status: Outpatient Admit Date: 12/23/2021 Staff Ordering Physician: Eyal Evans DO Operational Communication Chief: Latrice Cortez RDCS Attending Provider: Eyal Evans DO Referring Physician: Nathan COX; Exam Type: CA echo dop color flow w con Study Info Indications I35.0 - Nonrheumatic aortic (valve) stenosis Complete two-dimensional, color flow and Doppler transthoracic echocardiogram is performed. Summary 1. Complete two-dimensional, color flow and Doppler transthoracic echocardiogram is performed. 2. Left ventricular chamber dimension is mildly enlarged. 3. There is mildly increased left ventricular wall thickness. 4. Left ventricular systolic function is preserved, estimated at 50-55%. 5. The left ventricular diastolic function is grade I diastolic dysfunction. 6. E/e' 16 is elevated. 7. Global longitudinal strain is abnormal at -14.8%. 8. Left atrial chamber dimension is mildly enlarged. 9. There is severe aortic valve sclerosis. 10. There is moderate aortic valve stenosis with a peak velocity of 263.09 cm/s, mean gradient of 17 mmHg, and aortic valve area of 1.38 cm2. 11. There is mild aortic valve regurgitation. 12. There is mild mitral valve regurgitation. 13. There is trace tricuspid valve regurgitation. 14. No pulmonary hypertension, estimated pulmonary arterial systolic pressure is 39 mmHg. 15. Dilated inferior vena cava with >50% collapse upon inspiration consistent with elevated right atrial pressure, 10 mmHg. Left Ventricle E/e' 16 is elevated. Global longitudinal strain is abnormal at -14.8%. Left ventricular systolic function is preserved, estimated at 50-55%. Left ventricular chamber dimension is mildly enlarged. There is mildly increased left ventricular wall thickness. The left ventricular diastolic function is grade I diastolic dysfunction. Right Ventricle Right ventricular chamber dimension is normal. Right ventricular systolic function is normal. Left Atria Left atrial chamber dimension is mildly enlarged. Right Atria Right atrial chamber dimension is normal. Aortic Valve The aortic valve is probable trileaflet. There is severe aortic valve sclerosis. There is moderate aortic valve stenosis with a peak velocity of 263.09 cm/s, mean gradient of 17 mmHg, and aortic valve area of 1.38 cm2. There is mild aortic valve regurgitation. Pulmonic Valve There is no pulmonic regurgitation. Mitral Valve There is no mitral valve stenosis. There is mild mitral valve regurgitation. Tricuspid Valve There is trace tricuspid valve regurgitation. No pulmonary hypertension, estimated pulmonary arterial systolic pressure is 39 mmHg. Pericardium/Pleural There is no pericardial effusion. Inferior Vena Cava Dilated inferior vena cava with >50% collapse upon inspiration consistent with elevated right atrial pressure, 10 mmHg. Aorta The aortic root size at the sinus of Valsalva is normal. Left Ventricular Outflow Tract Name Value Normal LVOT 2D
== END 2021-12-23 08:54 | disposition home or self-care (01) ==
LOC: ANHCARD 08:53
PROVIDERS: PCP Family Medicine; Visit Provider Internal Medicine Cardiovascular Disease
DX: I35.1 Nonrheumatic aortic (valve) insufficiency (principal); I34.0 Nonrheumatic mitral (valve) insufficiency
CPT/HCPCS: 93306

== ENCOUNTER 2022-02-27 09:34 | Outpatient (CLI) | payer MEDICARE, MEDICAID, SELFPAY ==
[2022-02-27 10:09] LABS: Alanine Aminotransferase 14 U/L (6-50); Albumin Level 4.3 g/dL (3.5-5.1); Alkaline Phosphatase 71 U/L (38-126); Anion Gap 7 mmol/L (8-16); Aspartate Amino Transferase 22 U/L (17-59); Bilirubin,Total 0.4 mg/dL (0.2-1.3); Blood Urea Nitrogen 27 mg/dL (9-20); Calcium 8.9 mg/dL (8.4-10.2); Carbon Dioxide 26 mmol/L (22-30); Chloride 105 mmol/L (98-107); Cholesterol 175 mg/dL (0-200); Estimated Glomerular Filt Rate > 60; Glucose 105 mg/dL (65-110); HDL Direct 40 mg/dL; Potassium 4.6 mmol/L (3.4-5.0); Sodium 138 mmol/L (137-145); Triglycerides 50 mg/dL (<150)
[2022-02-27 10:20] LABS: LDL Cholesterol Direct 114 mg/dL
== END 2022-02-27 09:35 | disposition home or self-care (01) ==
PROVIDERS: PCP Family Medicine; Visit Provider Internal Medicine Cardiovascular Disease
DX: E78.5 Hyperlipidemia, unspecified (principal)
CPT/HCPCS: 36415; 80053; 80061

== ENCOUNTER 2022-04-28 11:45 | Outpatient (CLI) | payer MEDICARE, MEDICAID, SELFPAY ==
[2022-04-28 12:39] LABS: Alanine Aminotransferase 13 U/L (6-50); Albumin Level 4.4 g/dL (3.5-5.1); Alkaline Phosphatase 75 U/L (38-126); Anion Gap 5 mmol/L (8-16); Aspartate Amino Transferase 22 U/L (17-59); Bilirubin,Total 0.5 mg/dL (0.2-1.3); Blood Urea Nitrogen 28 mg/dL (9-20); Calcium 9.3 mg/dL (8.4-10.2); Carbon Dioxide 29 mmol/L (22-30); Chloride 104 mmol/L (98-107); Cholesterol 135 mg/dL (0-200); Estimated Glomerular Filt Rate > 60; Glucose 99 mg/dL (65-110); HDL Direct 38 mg/dL; Potassium 4.5 mmol/L (3.4-5.0); Sodium 138 mmol/L (137-145); Triglycerides 97 mg/dL (<150)
[2022-04-28 12:50] LABS: LDL Cholesterol Direct 70 mg/dL
== END 2022-04-28 11:46 | disposition home or self-care (01) ==
PROVIDERS: PCP Family Medicine; Visit Provider Internal Medicine Cardiovascular Disease
DX: E78.5 Hyperlipidemia, unspecified (principal)
CPT/HCPCS: 36415; 80053; 80061

== ENCOUNTER 2022-07-05 08:40 | Outpatient (CLI) | payer MEDICARE, MEDICAID, SELFPAY ==
[2022-07-05 09:59] LABS: Alanine Aminotransferase 15 U/L (6-50); Albumin Level 4.1 g/dL (3.5-5.1); Alkaline Phosphatase 96 U/L (38-126); Anion Gap 5 mmol/L (8-16); Aspartate Amino Transferase 22 U/L (17-59); Bilirubin,Total 0.4 mg/dL (0.2-1.3); Blood Urea Nitrogen 27 mg/dL (9-20); Calcium 8.8 mg/dL (8.4-10.2); Carbon Dioxide 28 mmol/L (22-30); Chloride 106 mmol/L (98-107); Estimated Glomerular Filt Rate > 60; Glucose 117 mg/dL (65-110); Potassium 4.5 mmol/L (3.4-5.0); Sodium 139 mmol/L (137-145)
[2022-07-05 10:08] LABS: Basophils Absolute Auto 0.1 K/mm3 (0.0-0.1); Basophils Percent Auto 1.2 % (0.2-1.2); Eosinophils Absolute Auto 0.4 K/mm3 (0-0.3); Eosinophils Percent Auto 3.6 % (0-4.4); Hemoglobin 11.5 g/dL (14.0-18.0); Immature Granulocyte Absolute 0.04 K/mm3 (0.00-0.031); Immature Granulocyte Percent A 0.4 % (0-0.5); Lymphocytes Absolute Auto 1.29 K/mm3 (0.9-3.2); Lymphocytes Percent Auto 12.9 % (18.3-44.2); Mean Corpuscular HGB Conc 31.1 g/dl (32-36); Mean Corpuscular Hemoglobin 27.4 pg (26-34); Mean Corpuscular Volume 88.3 fl (80-100); Mean Platelet Volume 9.9 fl (7.4-10.4); Monocytes Absolute Auto 0.9 K/mm3 (0.1-0.6); Neutrophils Absolute Auto 7.3 K/mm3 (1.3-6.7); Neutrophils Percent Auto 72.9 % (45.5-73.1); Platelet Count Result 271 k/mm3 (150-375); Red Blood Count 4.19 M/mm3 (4.6-6.20)
[2022-07-05 10:27] LABS: Thyroid Stimulating Hormone 0.932 uIU/mL (0.465-4.680)
[2022-07-05 10:38] LABS: Iron 20 ug/dL (49-181)
[2022-07-05 10:48] LABS: Percent Iron Saturation 6 % (20-50)
[2022-07-05 11:31] LABS: Vitamin D 25 Hydroxy 33.6 ng/mL
== END 2022-07-05 08:41 | disposition home or self-care (01) ==
PROVIDERS: PCP Family Medicine; Visit Provider Nurse Practitioner Family
DX: R53.83 Other fatigue (principal); D64.9 Anemia, unspecified; Z13.29 Encounter for screening for other suspected endocrine disorder; D50.9 Iron deficiency anemia, unspecified; E55.9 Vitamin D deficiency, unspecified; C67.9 Malignant neoplasm of bladder, unspecified
CPT/HCPCS: 36415; 80053; 82306; 82607; 83540; 83550; 84443; 85025

== ENCOUNTER 2022-08-28 12:56 | Emergency (ER) | payer MEDICARE, MEDICAID, SELFPAY ==
--- NOTE | ~2022-08-28 | CT_ITS ---
EXAMINATION: CT lumbar spine wo con DATE: 08/28/2022 15:05 CDT INDICATION: TECHNIQUE: Computed tomography (CT) of the lumbar spine was performed without intravenous contrast. T he dose-length product was 582.49 mGy-cm. COMPARISON: CT dated 04/26/2021 FINDINGS: There is a transitional vertebra of S1. There is grade 1 degenerative spondylolisthesis at L4-5. There is disc narrowing at L4-5. There is facet hypertrophy at L3-4 through L5-S1. There is a 3 .2 cm infrarenal abdominal aortic aneurysm just prior to the bifurcation. Stable sclerotic lesion of the sacrum, likely benign bone island. The following disc levels are specifically discussed: T12-L1: The disc does not extend beyond the endplate margin. There is mild facet joint osteoarthritis . There is no neural foraminal stenosis. There is no central canal stenosis. L1-L2: There is mild annular disc bulging. There is mild facet joint osteoarthritis. There is no neur al foraminal stenosis. There is no central canal stenosis. L2-L3: There is mild annular disc bulging without focal herniation. There is mild facet joint osteoar thritis. There is no neural foraminal stenosis. There is no central canal stenosis. L3-L4: There is moderate annular disc bulging There is bilateral facet joint osteoarthritis. There is no neural foraminal stenosis. There is no central canal stenosis. L4-L5: There is moderate annular disc bulging. There is moderate facet joint osteoarthritis. There is left neural foraminal stenosis. There is mild central canal stenosis. L5-S1: There is mild annular disc bulging There is bilateral facet joint osteoarthritis. There is no neural foraminal stenosis. There is no central canal stenosis. IMPRESSION: 1. Moderate lumbar spondylosis with grade 1 degenerative spondylolisthesis at L4-5. 2: Infrarenal abdominal aortic aneurysm measuring 3.2 cm. Reviewed, dictated and finalized at location A. IMPRESSION: 1. Moderate lumbar spondylosis with grade 1 degenerative spondylolisthesis at L 4-5. 2: Infrarenal abdominal aortic aneurysm measuring 3.2 cm.
--- NOTE | ~2022-08-28 | XR_ITS ---
XR hip RT min 2V 08/28/2022 14:57 Indication: Right hip pain Procedure: 2 views right hip Comparison: 06/21/2020 Findings: There is mild-moderate osteoarthritis of the right hip. No fracture, subluxation or disloca tion. No significant soft tissue abnormality. No foreign bodies. Impression: 1: Mild-moderate osteoarthritis of the right hip. Reviewed, dictated and finalized at location A. Impression: 1: Mild-moderate osteoarthritis of the right hip.
[2022-08-28 13:02] VITALS: BP 136/64; PULSE 77; RESP 16; TEMP 37.2; O2SAT 100
--- NOTE | 2022-08-28 13:45 | ED.GENADULT ---
HPI - General Adult General Chief complaint: Extremity Injury, Lower Stated complaint: R. hip pain Time Seen by Provider: 08/28/22 13:42 Source: patient Mode of arrival: ambulatory Limitations: no limitations History of Present Illness HPI narrative: This is a 77-year-old male presents the ED with chief complaint of right low back pain radiating into the right lower leg for several weeks and worse in the past couple of days. He has seen his primary care for this and this was prescribed muscle relaxers, tramadol with minimal relief at this point. He did report some relief with the Toradol injection with his PCP a few days ago. Patient reports an electric shocklike pain that radiates down into the buttocks and posterior thigh past the knee into the ore[place]. Worse with certain positions. Denies saddle anesthesia, urinary retention or bowel incontinence. Denies any trauma or further site of pain. Related Data Home Medications Medication Instructions Recorded Confirmed ferrous sulfate 325 mg (65 mg 325 mg PO BID 03/23/22 08/24/22 iron) tablet,delayed release Allergies Allergy/AdvReac Type Severity Reaction Status Date / Time No Known Allergies Allergy Verified 08/28/22 13:32 Review of Systems Review of Systems: CONSTITUTIONAL: Denies fever, chills, or sweats. SKIN: Denies rash or itching. MUSCULOSKELETAL: See HPI NEUROLOGIC: Denies headache, numbness, dizziness, or weakness. PSYCHIATRIC: Denies anxiety or depression. [facility] Past Medical History Medical History Abnormal MRI, lumbar spine Adult BMI 26.0-26.9 kg/sq m Anemia Bilateral leg cramps Bladder cancer BMI 25.0-25.9,adult BMI 27.0-27.9,adult BMI 27.0-27.9,adult BMI 28.0-28.9,adult BPH loc w urin obs/LUTS Contracture of hand Electrolyte abnormality Heart murmur Heme positive stool Hip pain, bilateral Iron deficiency anemia Lumbago without sciatica Lumbar spondylosis Trigger finger Urine blood Surgical History Surgical History History of appendectomy History of neck surgery Hx of transurethral destruction of bladder lesion Family History Family History Father Family history of malignant neoplasm Leukemia Sibling Family history of diabetes mellitus in first degree relative Alcohol abuse Obesity Diabetes mellitus Mother Family history of malignant neoplasm of ovary Social History Social History Smoking packs per day: 2 Smoking cigarettes per day: 40.0 Years smoked: 20 Smoking pack-years: 40.00 Smoking status: Former smoker Tobacco type: cigarettes Second hand tobacco smoke exposure: No Smoking end date: 10/10/73 Alcohol intake: current Alcohol use details: rarely Substance use: current Substance use type: marijuana Other substance usage details: smokes 1 joint every night and every morning Last use: 07/12/20 Lack of Transportation: No Lack of Food: Never True Current Housing: I Have Housing Concerned About Future Housing: No Difficulty Paying Gas/Electric Bills: No Difficulty Paying for Meds: No Currently Unemployed: No Education: Grade School Difficulty w/ Childcare or Family Care: No Living arrangements: alone Occupation/Education: retired Additional occupation/education comments: [employer] Gender identity (if verbalized by the patient): Male Sexual Orientation (if Verbalized by the Patient): Straight or Heterosexual Spiritual care concerns: No Exam Narrative: GENERAL: Well-appearing, well-nourished, and in no acute distress. HEAD: Normocephalic, atraumatic. EXTREMITIES: Paraspinal tightness bilaterally in the lumbar spine. Right SI tenderness present. There is no midline spinal tenderness throughout the spine.
[2022-08-28] MEDS: KETOROLAC (*BKC) 60 MG/2 ML VIAL IM (15:01)
== END 2022-08-28 16:19 | disposition home or self-care (01) ==
PROVIDERS: Emergency Provider Physician Assistant; PCP Family Medicine
DX: M54.41 Lumbago with sciatica, right side (principal); D50.9 Iron deficiency anemia, unspecified; Z87.891 Personal history of nicotine dependence
CPT/HCPCS: 72131; 73502; 96372; 99284; J1885

== ENCOUNTER 2022-10-13 12:45 | Outpatient (CLI) | payer MEDICARE, MEDICAID, SELFPAY ==
[2022-10-13 13:50] LABS: Hematocrit 37.8 % (42.0-52.0); Hemoglobin 11.8 g/dL (14.0-18.0); Mean Corpuscular HGB Conc 31.2 g/dl (32-36); Mean Corpuscular Hemoglobin 26.7 pg (26-34); Mean Corpuscular Volume 85.5 fl (80-100); Mean Platelet Volume 9.8 fl (7.4-10.4); Platelet Count Result 289 k/mm3 (150-375); Red Blood Count 4.42 M/mm3 (4.6-6.20); Red Cell Distribution Width 16.4 % (11.5-14.5); White Blood Count 9.7 K/mm3 (4.5-10.0)
[2022-10-13 14:03] LABS: Anion Gap 4 mmol/L (8-16); Blood Urea Nitrogen 28 mg/dL (9-20); Calcium 9.4 mg/dL (8.4-10.2); Carbon Dioxide 31 mmol/L (22-30); Chloride 106 mmol/L (98-107); Estimated Glomerular Filt Rate > 60; Glucose 125 mg/dL (65-110); Potassium 4.1 mmol/L (3.4-5.0); Sodium 141 mmol/L (137-145)
[2022-10-13 14:23] LABS: Iron 35 ug/dL (49-181)
[2022-10-13 14:31] LABS: Thyroid Stimulating Hormone 0.729 uIU/mL (0.465-4.680)
[2022-10-13 14:33] LABS: Percent Iron Saturation 9 % (20-50)
[2022-10-13 14:37] LABS: Vitamin D 25 Hydroxy 37.1 ng/mL
== END 2022-10-13 12:46 | disposition home or self-care (01) ==
PROVIDERS: PCP Family Medicine; Visit Provider Family Medicine
DX: E55.9 Vitamin D deficiency, unspecified (principal); D50.0 Iron deficiency anemia secondary to blood loss (chronic); R63.4 Abnormal weight loss; R31.9 Hematuria, unspecified
CPT/HCPCS: 36415; 80048; 82306; 83540; 83550; 84443; 85027

== ENCOUNTER 2023-02-01 13:57 | Outpatient (CLI) | payer MEDICARE, MEDICAID, SELFPAY ==
[2023-02-01 14:40] LABS: Basophils Absolute Auto 0.1 K/mm3 (0.0-0.1); Basophils Percent Auto 1.1 % (0.2-1.2); Eosinophils Absolute Auto 0.3 K/mm3 (0-0.3); Eosinophils Percent Auto 2.8 % (0-4.4); Hematocrit 35.3 % (42.0-52.0); Hemoglobin 10.8 g/dL (14.0-18.0); Immature Granulocyte Absolute 0.15 K/mm3 (0.00-0.031); Immature Granulocyte Percent A 1.5 % (0-0.5); Lymphocytes Absolute Auto 1.27 K/mm3 (0.9-3.2); Lymphocytes Percent Auto 13.1 % (18.3-44.2); Mean Corpuscular HGB Conc 30.6 g/dl (32-36); Mean Corpuscular Hemoglobin 27.2 pg (26-34); Mean Corpuscular Volume 88.9 fl (80-100); Mean Platelet Volume 10.3 fl (7.4-10.4); Monocytes Absolute Auto 0.8 K/mm3 (0.1-0.6); Monocytes Percent Auto 8.2 % (2.6-8.5); Neutrophils Absolute Auto 7.1 K/mm3 (1.3-6.7); Neutrophils Percent Auto 73.3 % (45.5-73.1); Platelet Count Result 236 k/mm3 (150-375); Red Blood Count 3.97 M/mm3 (4.6-6.20); Red Cell Distribution Width 14.2 % (11.5-14.5); White Blood Count 9.7 K/mm3 (4.5-10.0)
[2023-02-01 17:16] LABS: Iron 169 ug/dL (49-181)
[2023-02-01 17:30] LABS: Percent Iron Saturation 49 % (20-50)
[2023-02-01 17:37] LABS: Anion Gap 5 mmol/L (8-16); Blood Urea Nitrogen 31 mg/dL (9-20); Calcium 9.1 mg/dL (8.4-10.2); Carbon Dioxide 29 mmol/L (22-30); Chloride 106 mmol/L (98-107); Estimated Glomerular Filt Rate > 60; Glucose 105 mg/dL (65-110); Potassium 4.1 mmol/L (3.4-5.0); Sodium 140 mmol/L (137-145)
== END 2023-02-01 13:58 | disposition home or self-care (01) ==
PROVIDERS: PCP Family Medicine; Visit Provider Internal Medicine Hematology & Oncology
DX: D64.9 Anemia, unspecified (principal)
CPT/HCPCS: 36415; 80048; 82607; 82728; 82746; 83540; 83550; 85025

== ENCOUNTER 2023-04-14 10:34 | Outpatient (CLI) | payer MEDICARE, MEDICAID, SELFPAY ==
--- NOTE | 2023-04-14 11:01 | ECHO_ITS ---
Patient Info Name: Palmer Landry Age: 77 years : 1945 Gender: Male Ht: 68 in Wt: 165 lbs BSA: 1.90 m2 HR: 77 bpm BP: 141 / 59 mmHg Heart Rhythm: Sinus Rhythm Technical Quality: Good Exam Date: 04/14/2023 11:07 AM Exam Location: Echo Lab Patient Status: Outpatient Admit Date: 04/14/2023 Staff Ordering Physician: Eyal Evans DO Facility Maintenance Technician: Urszula Navarro RDCS Attending Provider: Eyal Evans DO Referring Physician: Nathan COX; Exam Type: CA echo doppler color flow Study Info Indications - nonrheumatic aortic stenosis Complete two-dimensional, color flow and Doppler transthoracic echocardiogram is performed. Summary 1. Complete two-dimensional, color flow and Doppler transthoracic echocardiogram is performed. 2. Left ventricular chamber dimension is moderately enlarged. 3. Left ventricular systolic function is normal, estimated at 55-60%. 4. The left ventricular diastolic function is grade I diastolic dysfunction. 5. E/e' 15 is elevated. 6. Left atrial chamber dimension is mildly enlarged. 7. The aortic valve is not well visualized. Cannot determine number of aortic valve leaflets. 8. There is moderate aortic valve sclerosis. 9. There is moderate aortic valve stenosis with a peak velocity of 292 cm/s, mean gradient of 24 mmHg, and aortic valve area of 1.3 cm2. 10. There is mild aortic valve regurgitation. 11. There is mild to moderate mitral valve regurgitation. 12. There is mild tricuspid valve regurgitation. 13. No pulmonary hypertension, estimated pulmonary arterial systolic pressure is 34 mmHg. Left Ventricle E/e' 15 is elevated. Left ventricular chamber dimension is moderately enlarged. Left ventricular systolic function is normal, estimated at 55-60%. The left ventricular diastolic function is grade I diastolic dysfunction. Right Ventricle Right ventricular systolic function is normal and with normal TAPSE 2.9 cm. Right ventricular chamber dimension is normal. Left Atria Left atrial chamber dimension is mildly enlarged. Right Atria Right atrial chamber dimension is normal. Aortic Valve The aortic valve is not well visualized. Cannot determine number of aortic valve leaflets. There is moderate aortic valve sclerosis. There is moderate aortic valve stenosis with a peak velocity of 292 cm/s, mean gradient of 24 mmHg, and aortic valve area of 1.3 cm2. There is mild aortic valve regurgitation. Pulmonic Valve There is no pulmonic regurgitation. Mitral Valve There is no mitral valve stenosis. There is mild to moderate mitral valve regurgitation. Tricuspid Valve There is mild tricuspid valve regurgitation. No pulmonary hypertension, estimated pulmonary arterial systolic pressure is 34 mmHg. Pericardium/Pleural There is no pericardial effusion. Inferior Vena Cava Normal inferior vena cava with >50% collapse upon inspiration consistent with normal right atrial pressure, 5 mmHg. Aorta The aortic root size at the sinus of Valsalva is normal. Left Ventricular Outflow Tract Name Value Normal LVOT 2D LVOT Diameter 2.1 cm LVOT Doppler LVOT Peak Gradient 6 mmHg LVOT Mean Gradient 4 mmHg LVOT VTI
== END 2023-04-14 10:35 | disposition home or self-care (01) ==
LOC: ANHCARD 10:37
PROVIDERS: PCP Family Medicine; Visit Provider Internal Medicine Cardiovascular Disease
DX: I35.0 Nonrheumatic aortic (valve) stenosis (principal); I34.0 Nonrheumatic mitral (valve) insufficiency; I35.1 Nonrheumatic aortic (valve) insufficiency; I36.1 Nonrheumatic tricuspid (valve) insufficiency
CPT/HCPCS: 93306

== ENCOUNTER 2023-08-01 10:43 | Outpatient (CLI) | payer MEDICARE, MEDICAID, SELFPAY ==
[2023-08-01 11:11] LABS: Basophils Absolute Auto 0.1 K/mm3 (0.0-0.1); Basophils Percent Auto 1.3 % (0.2-1.2); Eosinophils Absolute Auto 0.2 K/mm3 (0-0.3); Eosinophils Percent Auto 2.4 % (0-4.4); Hematocrit 31.6 % (42.0-52.0); Immature Granulocyte Absolute 0.03 K/mm3 (0.00-0.031); Immature Granulocyte Percent A 0.4 % (0-0.5); Lymphocytes Absolute Auto 1.09 K/mm3 (0.9-3.2); Lymphocytes Percent Auto 13.8 % (18.3-44.2); Mean Corpuscular HGB Conc 31.6 g/dl (32-36); Mean Corpuscular Hemoglobin 27.4 pg (26-34); Mean Corpuscular Volume 86.6 fl (80-100); Monocytes Absolute Auto 0.7 K/mm3 (0.1-0.6); Monocytes Percent Auto 8.7 % (2.6-8.5); Neutrophils Absolute Auto 5.8 K/mm3 (1.3-6.7); Neutrophils Percent Auto 73.4 % (45.5-73.1); Platelet Count Result 271 k/mm3 (150-375); Red Blood Count 3.65 M/mm3 (4.6-6.20); Red Cell Distribution Width 14.9 % (11.5-14.5); White Blood Count 7.9 K/mm3 (4.5-10.0)
[2023-08-01 17:01] LABS: Alanine Aminotransferase 12 U/L (6-50); Albumin Level 4.1 g/dL (3.5-5.1); Alkaline Phosphatase 80 U/L (38-126); Anion Gap 7 mmol/L (8-16); Aspartate Amino Transferase 24 U/L (17-59); Bilirubin,Total 0.4 mg/dL (0.2-1.3); Blood Urea Nitrogen 31 mg/dL (9-20); Calcium 9.4 mg/dL (8.4-10.2); Carbon Dioxide 24 mmol/L (22-30); Chloride 110 mmol/L (98-107); Estimated Glomerular Filt Rate > 60; Glucose 121 mg/dL (65-110); Potassium 4.2 mmol/L (3.4-5.0); Sodium 141 mmol/L (137-145)
[2023-08-03 15:21] LABS: Iron 36 ug/dL (49-181)
[2023-08-03 15:30] LABS: Percent Iron Saturation 10 % (20-50)
== END 2023-08-01 10:44 | disposition home or self-care (01) ==
LOC: ANHLAB 10:47
PROVIDERS: PCP Family Medicine; Visit Provider Internal Medicine Hematology & Oncology
DX: D64.9 Anemia, unspecified (principal)
CPT/HCPCS: 36415; 80053; 82728; 83540; 83550; 85025

== ENCOUNTER 2023-11-20 13:48 | Outpatient (CLI) | payer MEDICARE, MEDICAID, SELFPAY ==
--- NOTE | ~2023-11-20 | XR_ITS ---
EXAMINATION: XR chest 2V 11/20/2023 14:52 INDICATION: Hemoptysis. PROCEDURE: 2 view chest COMPARISON: 07/19/2017 FINDINGS: The lungs are clear. There are calcified granulomas of the left lung and mediastinum/hilum. The cardiomediastinal silhouette is within normal limits. There are no pleural effusions. There is no pneumothorax suspected. IMPRESSION: 1: NO ACUTE CARDIOPULMONARY DISEASE. Reviewed, dictated and finalized at location B.
--- NOTE | ~2023-11-20 | XR_ITS ---
EXAMINATION: XR knee LT min 4V DATE: 11/20/2023 14:52 INDICATION: Left knee pain. TECHNIQUE: 4 views of left knee were obtained. COMPARISON: Left knee radiographs 07/03/2018 FINDINGS: Bone alignment is normal. No fracture. There is moderate osteoarthritis of medial compartme nt and mild osteoarthritis of lateral and patellofemoral compartments. There is a small knee joint ef fusion. IMPRESSION: 1. Moderate left knee osteoarthritis. 2. Small left knee joint effusion. Reviewed, dictated and finalized at location E.
[2023-11-20 14:41] LABS: Basophils Absolute Auto 0.1 K/mm3 (0.0-0.1); Basophils Percent Auto 1.3 % (0.2-1.2); Eosinophils Absolute Auto 0.2 K/mm3 (0-0.3); Eosinophils Percent Auto 3.3 % (0-4.4); Hematocrit 33.1 % (42.0-52.0); Hemoglobin 10.1 g/dL (14.0-18.0); Immature Granulocyte Absolute 0.02 K/mm3 (0.00-0.031); Immature Granulocyte Percent A 0.3 % (0-0.5); Lymphocytes Percent Auto 15.8 % (18.3-44.2); Mean Corpuscular HGB Conc 30.5 g/dl (32-36); Mean Corpuscular Hemoglobin 26.4 pg (26-34); Mean Corpuscular Volume 86.6 fl (80-100); Mean Platelet Volume 10.1 fl (7.4-10.4); Monocytes Absolute Auto 0.7 K/mm3 (0.1-0.6); Monocytes Percent Auto 10.3 % (2.6-8.5); Neutrophils Absolute Auto 4.4 K/mm3 (1.3-6.7); Platelet Count Result 277 k/mm3 (150-375); Red Blood Count 3.82 M/mm3 (4.6-6.20); Red Cell Distribution Width 16.1 % (11.5-14.5); White Blood Count 6.3 K/mm3 (4.5-10.0)
[2023-11-20 14:52] LABS: Anion Gap 9 mmol/L (4-12); Blood Urea Nitrogen 34 mg/dL (9-20); Calcium 9.5 mg/dL (8.4-10.2); Carbon Dioxide 27 mmol/L (22-30); Chloride 106 mmol/L (98-107); Estimated Glomerular Filt Rate 49; Glucose 95 mg/dL (65-110); Potassium 4.1 mmol/L (3.4-5.0); Sodium 142 mmol/L (137-145)
[2023-11-20 15:23] LABS: Iron 32 ug/dL (49-181)
[2023-11-20 15:32] LABS: Percent Iron Saturation 8 % (20-50)
== END 2023-11-20 13:49 | disposition home or self-care (01) ==
PROVIDERS: PCP Family Medicine; Referring Provider Nurse Practitioner Family; Visit Provider Internal Medicine Hematology & Oncology
DX: M17.12 Unilateral primary osteoarthritis, left knee (principal); M25.462 Effusion, left knee; D64.9 Anemia, unspecified; R05.9 Cough, unspecified
CPT/HCPCS: 36415; 71046; 73564; 80048; 82607; 82728; 82746; 83540; 83550; 85025

== ENCOUNTER 2023-11-26 09:46 | Outpatient (CLI) | payer MEDICARE, MEDICAID, SELFPAY ==
--- NOTE | ~2023-11-26 | CT_ITS ---
EXAMINATION: CT chest abdomen pelvis wo con DATE: 11/26/2023 10:17 INDICATION: Aortic aneurysm TECHNIQUE: Computed tomography (CT) of the chest, abdomen, and pelvis was performed without intraveno us contrast. Automated exposure control and iterative reconstruction technique were employed. The dos e-length product was 812.76 mGy-cm. COMPARISON: CT abdomen and pelvis dated 04/26/2021 FINDINGS: CHEST CT: Mild emphysema. There are multiple scattered bilateral calcified pulmonary nodules as well as calcifi ed bilateral hilar and mediastinal lymph nodes consistent with old granulomatous disease. There is an oblong region of consolidation in the superior segment of the left lower lobe measuring 3.7 cm in ma ximal length and 2.0 x 1.8 cm in maximal orthogonal dimensions. This appears to include branching pat tern of unopacified likely obstructed bronchi. There is some associated volume loss with concave cont our with posterior retraction of the adjacent major fissure suggesting this is largely related to ate lectasis related to bronchial obstruction. No other airspace disease, pulmonary edema or pleural effu pk. Heart size is normal. Atherosclerotic coronary artery calcification is. No pericardial effusion . Prominent aortic valve calcification. The thoracic aorta is normal in caliber. No pathologically en larged thoracic lymphadenopathy. Moderate thoracic spondylosis. There is prominent sclerosis at the p eripheral aspect of a Schmorl's node along the inferior endplate of T9. No other suspicious lytic or blastic bone lesions. ABDOMEN/PELVIS CT: Multiple hepatic and splenic calcific lesions consistent with old granulomatous disease. Small calcif ied gallstone within the otherwise normal-appearing nondilated gallbladder. Pancreas, bilateral adren al glands and kidneys are normal. There are few diverticula along the sigmoid colon without adjacent comparison to suggest diverticulitis. Moderate to large amount of colonic stool which could be seen w ith constipation. No bowel obstruction. Bladder is normal. Prostatomegaly measuring 5.3 x 4.3 cm. The re is calcified atherosclerosis of the aorta and many of the other arteries. There is minimal fusifor m relative ectasia of the infrarenal aorta measuring up to maximal of 3.0 x 2.8 cm measured orthogona l to the axis of flow. No free intraperitoneal gas or fluid. No pathologically enlarged abdominal or pelvic lymphadenopathy. Mild lumbar spondylosis with 2 mm anterolisthesis L4 on L5. IMPRESSION: 1. Minimal relative ectasia of the infrarenal aorta measuring up to 3.0 x 2.8 cm. No thoracic or abdo fazal aortic aneurysm. 2. 3.0 x 2.0 x 1.8 cm oblong region of consolidation in the superior segment of the left lower lobe w ith features suggesting volume loss suggesting this represents atelectasis or scarring. There promine nt calcified lymph nodes at the rufino suggests this could be related to fibrosing mediastinitis. Could not however excluded underlying obstructing malignancy or other obstructing endobronchial lesion. Wo uld recommend correlation with any prior outside imaging if available. Would also consider further ev aluation with PET/CT and/or bronchoscopy. 3. Cholelithiasis. 4. Prostatomegaly. Reviewed, dictated and finalized at location A. IMPRESSION: 1. Minimal relative ectasia of the infrarenal aorta measuring up to 3.0 x 2.8 c m. No thoracic or abdominal aortic aneurysm. 2. 3.0 x 2.0 x 1.8 cm oblong region of consolidation in the superior segment of the left lower lobe with features suggesting volume loss suggesting this repre sents atelectasis or scarring. There prominent calcified lymph nodes at the hil a suggests this could be related to fibrosing mediastinitis. Could not however excluded underlying obstructing malignancy or other obstructing endobronchial
== END 2023-11-26 09:47 ==
PROVIDERS: PCP Family Medicine; Visit Provider Nurse Practitioner Family
DX: I71.9 Aortic aneurysm of unspecified site, without rupture (principal); R91.8 Other nonspecific abnormal finding of lung field; K80.20 Calculus of gallbladder without cholecystitis without obstruction; N40.0 Benign prostatic hyperplasia without lower urinary tract symptoms; Z87.891 Personal history of nicotine dependence
CPT/HCPCS: 71250; 74176

== ENCOUNTER 2024-01-31 10:48 | Outpatient (CLI) | payer MEDICARE, MEDICAID, SELFPAY ==
--- NOTE | ~2024-01-31 | CT_ITS ---
CT Scan of the Chest without Contrast: Clinical Indication: Dyspnea Technique: Contiguous sections were acquired throughout the chest without intravenous contrast. Dose reduction technique was used on this scan by utilizing automated exposure control and iterative recon struction technique. The dose-length product (DLP) was 269.60 mGy-cm. COMPARISON: 11/26/2023 Findings: There is no evidence of any significant mediastinal, hilar or axillary lymphadenopathy. Calcified med iastinal lymph nodes are present. Atherosclerotic calcifications of the aorta and coronary arteries a re present. There is no evidence of pleural or pericardial effusion. 11 mm mildly irregular right upper lobe pulmonary nodule present, with minimal surrounding groundglas s opacity (axial image 46). Several scattered calcified granulomas are present in the lungs. There is stable probable chronic scarring in the medial left lower lobe in the perihilar region posteriorly. Images through the upper abdomen reveal no abnormalities. Impression: 11 mm irregular right upper lobe pulmonary nodule mild stranding groundglass opacity. This could refl ect focal infectious/inflammatory process. Follow-up exam in 1-3 months advised to reassess. Stable probable scarring/atelectasis in the medial left lower lobe. Reviewed, dictated and finalized at location . Impression: 11 mm irregular right upper lobe pulmonary nodule mild stranding groundglass op acity. This could reflect focal infectious/inflammatory process. Follow-up exam in 1-3 months advised to reassess. Stable probable scarring/atelectasis in the medial left lower lobe.
== END 2024-01-31 10:49 | disposition home or self-care (01) ==
PROVIDERS: PCP Family Medicine; Visit Provider Internal Medicine Pulmonary Disease
DX: R06.00 Dyspnea, unspecified (principal); R91.1 Solitary pulmonary nodule
CPT/HCPCS: 71250

== ENCOUNTER 2024-02-06 12:40 | Outpatient (CLI) | payer MEDICARE, MEDICAID, SELFPAY ==
--- NOTE | 2024-02-06 15:55 | WPDSIXMINUTE ---
Six Minute Walk Procedure Procedure Performed Pulmonary Stress Test (6 min walk) Six Minute Walk Six Minute Walk: This is a 6 minute walk test. The test was performed and interpreted in accordance with the 2014 ERS/ATS task force guidelines. Findings: The patient's resting room air oxygen saturation measured by pulse oximetry was 99% and heart rate was 79 bpm. Patient ambulated for 305 meters and oxygen saturation remained 98 to 99%. Heart rate at the end of the study was 95 bpm. The patient did not qualify for supplemental oxygen at rest or with ambulation. There are no prior studies for comparison.
--- NOTE | 2024-02-06 15:56 | WPDPFTINT ---
PFT Procedure Performed PFT Procedure Performed Spirometry with Pre/Post Bronchodilator Plethysmography (Lung Vol) Diffusing Cap (DLCO) Flow Vol Loop PFT Interpretation This is a pulmonary function test with pre and post-bronchodilator spirometry, plethysmography and diffusing capacity. The test was performed and results interpreted in accordance with the 2019 and 2005 ATS/ERS Task Force guidelines respectively using the Global Lung Function Initiative-2012 reference equations. Patient demonstrated good effort and cooperation. Reproducibility criteria were met. The quality of the pre bronchodilator spirometry maneuver was Grade A and post bronchodilator spirometry maneuver was Grade A. Findings: Spirometry: The contour the inspiratory and expiratory flow tracing are normal. The pre bronchodilator FVC is 3.37 L, 96% predicted. The pre bronchodilator FEV1 is 2.54 L, 98% predicted. The pre bronchodilator FEV1: FVC ratio is 76%. The post bronchodilator FVC is 3.55 L, representing a 6% increase. The post bronchodilator FEV1 is 2.73 L, representing a 7% increase. The post bronchodilator FEV1: FVC ratio is 77%. Plethysmography: The total lung capacity is 5.66 L, 88% predicted. The functional residual capacity is 3.18 L, 92% predicted. The residual volume is 2.29 L, 92% predicted. Diffusing capacity: The diffusing capacity unadjusted for hemoglobin and carboxyhemoglobin is 15.9, 70% predicted. The diffusing capacity adjusted for alveolar volume is 3.15, 83% predicted. Impression: The spirometry is normal without evidence of an obstructive abnormality. There is no significant improvement after inhaling a single dose of albuterol. The lung volumes are normal. The diffusing capacity is normal. There are no prior studies for comparison
== END 2024-02-06 12:41 | disposition home or self-care (01) ==
LOC: ANHPFT 12:42
PROVIDERS: PCP Family Medicine; Visit Provider Internal Medicine Pulmonary Disease
DX: J61 Pneumoconiosis due to asbestos and other mineral fibers (principal); Z87.891 Personal history of nicotine dependence
CPT/HCPCS: 94060; 94618; 94726; 94729

== ENCOUNTER 2024-02-28 13:02 | Outpatient (CLI) | payer MEDICARE, MEDICAID, SELFPAY ==
[2024-02-28 13:18] LABS: Basophils Absolute Auto 0.1 K/mm3 (0.0-0.1); Basophils Percent Auto 1.6 % (0.2-1.2); Eosinophils Absolute Auto 0.3 K/mm3 (0-0.3); Hematocrit 33.6 % (42.0-52.0); Hemoglobin 10.3 g/dL (14.0-18.0); Immature Granulocyte Absolute 0.01 K/mm3 (0.00-0.031); Immature Granulocyte Percent A 0.2 % (0-0.5); Lymphocytes Absolute Auto 1.09 K/mm3 (0.9-3.2); Lymphocytes Percent Auto 17.2 % (18.3-44.2); Mean Corpuscular HGB Conc 30.7 g/dl (32-36); Mean Corpuscular Volume 88.2 fl (80-100); Monocytes Absolute Auto 0.7 K/mm3 (0.1-0.6); Monocytes Percent Auto 10.9 % (2.6-8.5); Neutrophils Absolute Auto 4.1 K/mm3 (1.3-6.7); Neutrophils Percent Auto 65.1 % (45.5-73.1); Platelet Count Result 244 k/mm3 (150-375); Red Blood Count 3.81 M/mm3 (4.6-6.20); Red Cell Distribution Width 14.6 % (11.5-14.5); White Blood Count 6.3 K/mm3 (4.5-10.0)
[2024-02-28 16:29] LABS: Iron 44 ug/dL (49-181)
[2024-02-28 16:39] LABS: Percent Iron Saturation 12 % (20-50)
[2024-02-28 18:36] LABS: Anion Gap 8 mmol/L (4-12); Blood Urea Nitrogen 31 mg/dL (9-20); Calcium 9.6 mg/dL (8.4-10.2); Carbon Dioxide 26 mmol/L (22-30); Chloride 107 mmol/L (98-107); Estimated Glomerular Filt Rate 58; Glucose 133 mg/dL (65-110); Sodium 141 mmol/L (137-145)
[2024-02-28 19:32] LABS: Folic Acid 13.7 ng/mL (2.76->20)
== END 2024-02-28 13:03 | disposition home or self-care (01) ==
PROVIDERS: Nurse Practitioner Family; PCP Family Medicine; Visit Provider Internal Medicine Hematology & Oncology
DX: D50.9 Iron deficiency anemia, unspecified (principal)
CPT/HCPCS: 36415; 80048; 82607; 82728; 82746; 83540; 83550; 85025

== ENCOUNTER 2024-04-07 13:39 | Outpatient (CLI) | payer MEDICARE, MEDICAID, SELFPAY ==
--- NOTE | ~2024-04-07 | XR_ITS ---
XR wrist LT w scaphoid Ordering provider: Stephany Cowan NP History: . M25.532 - Pain in left wrist . Comparison: The FINDINGS: BONES: Small bony fragment seen anteriorly under the pisiform bone in the lateral view which may be a chip fracture.. No definite scaphoid fracture. JOINT SPACES: Well maintained. SOFT TISSUES: Normal. IMPRESSION: Highly suggestive chip fracture seen anteriorly. Clinical correlation advised. Reviewed, dictated and finalized at location A. IRONER
== END 2024-04-07 13:40 | disposition home or self-care (01) ==
PROVIDERS: PCP Family Medicine
DX: M25.532 Pain in left wrist (principal)
CPT/HCPCS: 73110

== ENCOUNTER 2024-07-31 10:03 | Outpatient (CLI) | payer MEDICARE, MEDICAID, SELFPAY ==
[2024-07-31 10:22] LABS: Basophils Absolute Auto 0.1 K/mm3 (0.0-0.1); Basophils Percent Auto 1.4 % (0.2-1.2); Eosinophils Absolute Auto 0.1 K/mm3 (0-0.3); Eosinophils Percent Auto 2.2 % (0-4.4); Hemoglobin 7.3 g/dL (14.0-18.0); Immature Granulocyte Absolute 0.02 K/mm3 (0.00-0.031); Immature Granulocyte Percent A 0.4 % (0-0.5); Lymphocytes Absolute Auto 0.82 K/mm3 (0.9-3.2); Lymphocytes Percent Auto 14.7 % (18.3-44.2); Mean Corpuscular HGB Conc 29.2 g/dl (32-36); Mean Corpuscular Hemoglobin 24.2 pg (26-34); Mean Corpuscular Volume 82.8 fl (80-100); Mean Platelet Volume 8.7 fl (7.4-10.4); Monocytes Absolute Auto 0.5 K/mm3 (0.1-0.6); Monocytes Percent Auto 8.6 % (2.6-8.5); Neutrophils Absolute Auto 4.1 K/mm3 (1.3-6.7); Neutrophils Percent Auto 72.7 % (45.5-73.1); Platelet Count Result 272 k/mm3 (150-375); Red Blood Count 3.02 M/mm3 (4.6-6.20); Red Cell Distribution Width 18.7 % (11.5-14.5); White Blood Count 5.6 K/mm3 (4.5-10.0)
[2024-07-31 10:26] LABS: Platelet Estimate Adequate (Adequate); Schistocytes None Seen
[2024-07-31 10:28] LABS: Anisocytosis 2+; Hypochromasia 1+; Ovalocytes 1+
--- OUTSIDE RECORDS SUMMARY | 2024-07-31 10:42 | XMS_ITS | Clinical Summary ---
Author Organization [facility] Kenneth dobbs [facility] Address [address] [place] [address] Care Team Providers Care Public Health Microbiologist Name Role Phone Delvis Hernández MD Primary Care Provider [phone] Allergies No known active allergies Medications tamsulosin (FLOMAX) 0.4 mg capsule Take 0.4 mg by mouth. 09/26/2019 Active pravastatin (PRAVACHOL) 10 mg tablet Take 10 mg by mouth daily. 09/09/2020 Active meloxicam (MOBIC) 15 mg tablet Take 15 mg by mouth daily. 07/18/2021 Active ferrous sulfate (FEOSOL) 300 mg (60 mg iron)/5 mL solution Take 5 mL (300 mg) by mouth 2 times daily. 300 mL 3 08/10/2023 Active tiZANidine (ZANAFLEX) 4 mg Tablet Take 4 mg by mouth every 8 hours as needed. 11/11/2023 Active aspirin (ECOTRIN EC) 81 mg Tablet, Delayed Release (E.C.) Take 81 mg by mouth daily. Active traZODone (DESYREL) 50 mg tablet Take 50 mg by mouth daily at bedtime. 11/22/2023 Active Active Problems Problem Noted Date Diagnosed Date Iron deficiency anemia 09/22/2020 Encounters Date Type Department Care Team Description 07/19/2024 External Device Data ST[facility] ABSTRACTION Provider, Abstract 07/18/2024 External Device Data [facility] ABSTRACTION Provider, Abstract 07/02/2024 External Device Data [facility] ABSTRACTION Provider, Abstract 06/05/2024 External Device Data [facility] ABSTRACTION Provider, Abstract from Last 3 Months Family History Relation Name Status Comments Brother 1 Alive Brother 2 Brother 3 Alive Brother 4 Alive Brother 5 Alive Brother 6 Daughter Alive Father Mother Alive Sister 1 Alive Sister 2 Alive Sister 3 Alive Son 1 Alive Son 2 Alive Son 3 Alive Social History Tobacco Use Types Packs/Day Years Used Date Smoking Tobacco: Former Cigarettes Smokeless Tobacco: Never Tobacco Cessation:Counseling Given: Not Answered Alcohol Use Standard Drinks/Week Comments Yes 0 (1 standard drink = 0.6 oz pur e alcohol) occasional Sex and Gender Information Value Date Recorded Sex Assigned at Not on file Legal Sex Male 1:58 PM CDT Gender Identity Not on file Sexual Orientation Not on file Last Filed Vital Signs Vital Sign Reading Time Taken Comments Blood Pressure 124/52 02/29/2024 12:04 PM CDT Pulse 82 02/29/2024 12:04 PM CDT Temperature 36.9 C (98.4 F) 02/29/2024 12:04 PM CDT Respiratory Rate 14 02/29/2024 12:04 PM CDT Oxygen Saturation 98% 02/29/2024 12:04 PM CDT Inhaled Oxygen Concentration - - Weight 83.1 kg (183 lb 3.2 oz) 02/29/2024 12:04 PM CDT Height 172.7 cm (5' 8 ) 10/13/2021 10:09 AM CDT Body Mass Index 27.86 10/13/2021 10:09 AM CDT Plan of Treatment Upcoming Encounters Date Type Department Care Team (Late st Contact Info) Description 08/01/2024 10:45 AM CDT Office Visit [facility] Oncology and Hematology - [place] [address] [facility] [address] [place] [address] Juan Em MD [address] [facility] [address] [place] [address] Health Maintenance Due Date Last Done Comments DTAP/TDAP/TD VACCINES (1 - Tdap) 08/05/1962 Traditional Medicare (ACO) A nnual Wellness Visit 08/05/1962 PNEUMOCOCCAL VACCINE 50+ YEA RS (1 of 1 - PCV) 08/05/1993 ZOSTER VACCINE (1 of 2) 08/05/1993 RSV VACCINE (60+ or ) (1 - 1-dose 75+ series) 08/05/2018 INFLUENZA VACCINE (#1) 2023 COLORECTAL SCREENING Discontinued 07/23/2020, 07/23/2020, 07/23/2020, Additional history exists Colorectal Cancer Screening Discontinued FIT-DNA Q 3 years Discontinued FIT/FOBT Q 1 year Discontinued Flex Sig/CT Colonography Q 5 years Discontinued Insurance MEDICAID [place] MEDICARE PART A AND B Care Teams Public Health Microbiologist Relationship Specialty Start Date End Date Delvis Hernández MD [address] [place] [address] PCP - General Family Practice 09/22/20
--- OUTSIDE RECORDS SUMMARY | 2024-07-31 10:42 | XMS_ITS | Clinical Summary ---
Author Organization [facility] Address [facility] [place] [address] Care Team Providers Care Business Insight And Analytics Manager Name Role Phone Delvis Hernández MD Primary Care Provider [phone] Juan Em MD Unavailable [phone] Allergies No known active allergies Medications tamsulosin (FLOMAX) 0.4 MG Cap Take 1 capsule (0.4 mg total) by mouth daily. Take 30 minutes after a meal. Active MYRBETRIQ 25 MG 24 hr tablet Take 1 tablet (25 mg total) by mouth daily. 07/26/2023 Active atorvastatin (LIPITOR) 40 MG tablet Take 1 tablet (40 mg total) by mouth daily. Active aspirin EC (ECOTRIN) 81 MG tablet Take 1 tablet (81 mg total) by mouth daily. Active meloxicam (MOBIC) 15 MG tablet Take 1 tablet (15 mg total) by mouth daily. 08/30/2023 Active ferrous sulfate 220 (44 Fe) MG/5ML elixir Take 5 mLs (220 mg total) by mouth 2 (two) times daily. 08/10/2023 Active Social History Tobacco Use Types Packs/Day Years Used Date Smoking Tobacco: Former Cigarettes 2 20 1 954 - 1973 Smokeless Tobacco: Never Tobacco Cessation:Counseling Given: Not Answered Alcohol Use Standard Drinks/Week Comments Not Currently 0 (1 standard drink = 0.6 oz pur e alcohol) Sex and Gender Information Value Date Recorded Sex Assigned at Not on file Legal Sex Male 7:35 AM CDT Gender Identity Not on file Sexual Orientation Not on file Last Filed Vital Signs Vital Sign Reading Time Taken Comments Blood Pressure 156/67 09/10/2023 2:05 PM CDT Pulse 82 09/10/2023 2:05 PM CDT Temperature 36.6 C (97.9 F) 09/10/2023 2:05 PM CDT Respiratory Rate 16 09/10/2023 2:05 PM CDT Oxygen Saturation 99% 09/10/2023 2:05 PM CDT Inhaled Oxygen Concentration - - Weight 73.8 kg (162 lb 11.2 oz) 024 11:00 AM CDT Height 172.7 cm (5' 8 ) 09/10/2023 11:0 0 AM CDT Body Mass Index 24.74 09/10/2023 11:00 AM CDT Plan of Treatment Health Maintenance Due Date Last Done Comments DTaP, Tdap and Td Vaccines (1 - Tdap) 08/05/1962 Zoster Vaccines (1 of 2) 08/05/1993 Annual Medicare Wellness Visit 08/05/2008 COVID-19 Vaccine ( season) 2024 04/02/2023, 03/27/2022, 12/01/2021, Additional history exists Influenza Adult (#1) 2024 03/17/2019, 03/28/2018, 01/31/2017, Additional history exists Pneumococcal Vaccine: 65+ Years Completed 04/09/2015, 05/27/2012 RSV Immunization or 60+ Years Completed 02/22/2023 Meningococcal B Vaccine Aged Out No l onger eligible based on patient's age to complete this topic Meningococcal Vaccine Aged Out No flaquito amaury eligible based on patient's age to complete this topic RSV Immunizations Under 20 Months Aged Out No longer eligible based on patient's age to complete this topic Insurance MEDICARE MEDICAID Care Teams Business Insight And Analytics Manager Relationship Specialty Start Date End Date Delvis Hernández MD [address] [address] PCP - General FAMILY PRACTICE 08/03/23 Juan Em MD [address] [place] [address] HEMATOLOGY/ONCOLOGY 08/03/23
--- OUTSIDE RECORDS SUMMARY | 2024-07-31 10:42 | XMS_ITS | Referral Summary ---
Author Organization [facility] [address] [place] [address] [address] [facility] [address] [place] [address] Care Team Providers Care Medical Doctor Md/Medical Director Name Role Phone Delvis Hernández MD Primary Care Provider Encounters Date Type Department Care Team Description 06/17/2024 Orders Only [facility] Medical [facility] Cardiology [address] [facility] [address] [place] [phone] Ghazal Radford MA 06/17/2024 Telephone [facility] Cardiology [address] [place] [address] Ankit Jimenez MD Med Management 06/12/2024 Telephone [facility] Cardiology [address] [place] [address] Ankit Jimenez MD 06/06/2024 10:15 AM HOT STRIP MILL SUPERVISOR Ancillary Procedure [facility] Medical [facility] Cardiology at [address] [place] [phone] 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; Nonrheumatic aortic valve stenosis 06/04/2024 9:15 AM HOT STRIP MILL SUPERVISOR Office Visit [facility] Medical Group Cardiology at [address] [place] [phone] Ankit Jimenez MD 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 (Primary Dx); Peripheral arterial occlusive disease; Mixed hyperlipidemia; Essential hypertension; Nonrheumatic aortic valve stenosis from Last 3 Months Allergies No known active allergies Medications aspirin 81 mg tablet take 1 tablet by oral route every day 0 0 6 Active ferrous sulfate 325 mg (65 mg of elemental iron) tabletIndicatio ns:Iron Deficiency Anemia Take 1 tablet (325 mg total) by mouth daily with breakfast Active tamsulosin (FLOMAX) 0.4 mg extended release capsule Take 1 capsule (0.4 mg total) by mouth daily 0 Active atorvastatin (LIPITOR) 40 mg tablet Take 1 tablet (40 mg total) by mouth daily Active traZODone (DESYREL) 50 mg tablet Take 1 tablet (50 mg total) by mouth nightly at bedtime Active metoprolol XL (TOPROL-XL) 25 mg extended release tablet Take 1 tablet (25 mg total) by mouth daily 30 tablet 10 5 06/17/19 26 Active losartan (COZAAR) 25 mg tablet TAKE 1 TABLET(25 MG) BY MOUTH DAILY 30 tablet 10 5 Active Active Problems Problem Noted Date Diagnosed Date Essential hypertension 06/04/2024 Mixed hyperlipidemia 03/28/2021 Pulmonary HTN 11/22/2018 Noncompliance with medication regimen 12/06/2016 Peripheral arterial occlusive disease 12/10/2015 Overview (08/17/2016): PAD (peripheral artery disease) Coronary artery disease invo lving shoshone-bannock coronary artery of shoshone-bannock heart without angina pectoris 12/10/2015 Overview (08/17/2016): 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 Depression 12/10/2015 Overview (08/17/2016): Depression, unspecified depression type Diverticula of intestine 12/10/2015 Overview (08/17/2016): Diverticulosis of intestine without bleeding, unspecified intestinal tract location Tobacco dependence in remission 12/10/2015 Overview (08/17/2016): Tobacco abuse, in remission Aortic valve stenosis 12/10/2015 Overview (08/18/2016): Aortic valve stenosis, unspecified etiology Abnormal cardiovascular stress test 12/10/2015 Overview (08/18/2016): Abnormal stress test Resolved Problems Problem Noted Date Diagnosed Date Resolved Date Dyslipidemia 12/10/2015 03/28/2021 Overview (08/17/2016): Dyslipidemia Social History Tobacco Use Types Packs/Day Years Used Date Smoking Tobacco: Former Smokeless Tobacco: Never Alcohol Use Standard Drinks/Week Comments Yes 0 (1 standard drink = 0.6 oz pur e alcohol) Sex and Gender Information Value Date Recorded Sex Assigned at Not on file Legal Sex Male 11:20 AM HOT STRIP MILL SUPERVISOR Gender Identity Not on file Sexual Orientation Not on file Last Filed Vital Signs Vital Sign Reading Time Taken Comments Blood Pressure 132/60 06/04/2024 9:24 AM HOT STRIP MILL SUPERVISOR Pulse 91 06/04/2024 9:24 AM HOT STRIP MILL SUPERVISOR Temperature 36.7 C (98 F) 11/09/2014 10:01 AM CDT Respiratory Rate 12 12/06/2016 9:39 AM CDT Oxygen Saturation 99% 06/04/2024 9:24 AM HOT STRIP MILL SUPERVISOR Inhaled Oxygen Concentration - - Weight 82.1 kg (181 lb) 06/04/2024 9:24 AM HOT STRIP MILL SUPERVISOR Height 172.7 cm (5' 8 ) 06/04/2024 9:24 AM HOT STRIP MILL SUPERVISOR Body Mass Index 27.52 06/04/2024 9:24 AM HOT STRIP MILL SUPERVISOR Plan of Treatment Not on file Procedures Procedure Name Priority Date/Time Associated Diagnosis Comments TRANSTHORACIC ECHO (TTE) COMPLETE W DOPPLER/CF WO CONTRAST Routine 06/06/2024 10:44 AM HOT STRIP MILL SUPERVISOR 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 Nonrheumatic aortic valve stenosis ELECTROCARDIOGRAM REPORT Routine 025 3:19 PM HOT STRIP MILL SUPERVISOR Nonrheumatic aortic valve stenosis from Last 3 Months Results * TRANSTHORACIC ECHO (TTE) COMPLETE W DOPPLER/CF WO CONTRAST (06/06/2024 10:44 AM HOT STRIP MILL SUPERVISOR) LV EF 50 % CONS SCIMAGE Anatomical Region Laterality Modality Ultrasound 06/06/2024 10:1 3 AM HOT STRIP MILL SUPERVISOR Narrative 06/06/2024 1:31 PM HOT STRIP MILL SUPERVISOR [facility] Medical Group Cardiology [address] , [address], [place] [address] P:[phone] P:[phone] Echocardiographic Report Patient Name: JUAN JOSE LANDRY SR, R : 1945 Study Date: 06/06/2024 10:13:16 AM Gender: M Tech: Location: [facility] Ref Provider: ANKIT JIMENEZ Height(Cm): 173 BSA: 1.99 Weight(Kg): 82.1 Heart Rate: 89 BP: 132 / 60 Quality: Good Order Provider: ANKIT JIMENEZ PROCEDURES: Echocardiographic Report: Transthoracic echocardiogram with complete 2D, M-Mode, and color Doppler examination. With Strain Analysis. INDICATIONS: Coronary Artery Disease and I35.0 Nonrheumatic aortic (valve) stenosis. MEASUREMENTS: 2D/MM Value Range Doppler Value Range EF Mod BP 49 % [ 52 - 72 ] BANDAR Vmax 1.19 cm2 [ 2.00 - 4.00 ] Estimated EF 50 % AV Mean PG 31 mmHg LVIDd 2D 5.52 cm [ 4.20 - 5.80 ] AV Peak Seven 3.60 m/s [ 1.00 - 1.70 ] LVIDd MM 5.58 cm [ 4.20 - 5.80 ] AV Peak PG 52 mmHg LVIDs 2D 4.40 cm [ 2.50 - 4.00 ] AV VTI 76.71 cm LVIDs MM 3.31 cm [ 2.50 - 4.00 ] LVOT Diam 1.97 cm [ 1.70 - 2.10 ] LVPWd 2D 0.95 cm [ 0.60 - 1.00 ] LVOT Peak Seven 1.41 m/s [ 0.70 - 1.10 ] LVPWd MM 0.71 cm [ 0.60 - 1.00 ] LVOT VTI 31.31 cm IVSd 2D 1.06 cm [ 0.60 - 1.00 ] MV E Peak Seven 0.96 m/s [ 0.60 - 1.30 ] IVSd MM 1.35 cm [ 0.60 - 1.00 ] MV A Peak Seven 1.28 m/s [ 1.00 - 1.20 ] LA Dimension MM 3.22 cm [ 3.00 - 4.00 ] MV Mean PG 5 mmHg [ 0 - 5 ] AoR Diam MM 3.77 cm [ 3.10 - 3.70 ] MVA PHT 5.19 cm2 [ 2.00 - 4.00 ] LA Volume Index 30 cc/m2 [ 16 - 34 ] MV Decel Time 166 msec [ 104 - 258 ] PV Peak Seven 1.28 m/s [ 0.40 - 0.80 ] TR Peak Seven 2.93 m/s [ 1.00 - 2.80 ] TR Peak PG 34 mmHg RVSP 42.00 mmHg [ 10.00 - 36.00 ] E` 0.07 m/s E/E` 14 2D/MM Value Range Doppler Value Range - FINDINGS: Interpretation Site: Exam was interpreted at [facility]. Left Ventricle: Normal left ventricular size. Normal global left ventricular systolic function. Impaired diastolic relaxation Grade I. Ejection fraction is measured at 49 %. Ejection Fraction is visually estimated to be 50 %. Global Longitudinal Strain is -14 %. Right Ventricle: Normal right ventricular size. Left Atrium: The left atrium is normal in size. Right Atrium: The right atrium is normal in size. Atrial Septum: Normal atrial septum. Mitral Valve: Normal appearance of the mitral valve. Mild mitral valve regurgitation. Aortic Valve: Moderate aortic stenosis. Peak Velocity of 3.60 m/s. Peak gradient of 52.0 mmHg. Mean gradient of 31.0 mmHg. Valve area of 1.2 cm2. Aortic cusps appear moderately sclerotic. The non coronary cusps is more calcified and immobilize than the left and right coronary cusps. Trace to mild aortic valve regurgitation. Tricuspid Valve: Normal appearance of the tricuspid valve. Estimated peak RVSP is 42 mmHg. Mild tricuspid regurgitation. Pulmonic Valve: Normal appearance of the pulmonic valve. Pericardium: Normal pericardium with no significant pericardial effusion. Aorta: Normal aortic root. IVC: Normal size and normal respiratory collapse consistent with normal right atrial pressure (<5 mmHg). Pulmonary Artery: Normal pulmonary artery size. CONCLUSIONS: Normal left ventricular size. Normal global left ventricular systolic function. Impaired diastolic relaxation Grade I. Ejection fraction is measured at 49 %. Ejection Fraction is visually estimated to be 50 %. Global Longitudinal Strain is -14 %. The left atrium is normal in size. Normal appearance of the mitral valve. Mild mitral valve regurgitation. Moderate aortic stenosis. Peak Velocity of 3.60 m/s. Peak gradient of 52.0 mmHg. Mean gradient of 31.0 mmHg. Valve area of 1.2 cm2. Aortic cusps appear moderately sclerotic. The non coronary cusps is more calcified and immobilize than the left and right coronary cusps. Trace to mild aortic valve regurgitation. Normal left ventricular thickness argues against severe aortic stenosis. Electronically Signed By: Stan Hall MD, [facility] 06/06/2024 1:30:15 PM HOT STRIP MILL SUPERVISOR Procedure Note Stan Hall MD - 06/06/2024 [facility] Medical Group Cardiology [address] [facility], [address], [place] [address] P:[phone] P:[phone] Echocardiographic Report Patient Name: JUAN JOSE LANDRY SR, R : 1945 Study Date: 06/06/2024 10:13:16 AM Gender: M Tech: Location: [facility]W Ref Provider: ANKIT JIMENEZ Height(Cm): 173 BSA: 1.99 Weight(Kg): 82.1 Heart Rate: 89 BP: 132 / 60 Quality: Good Order Provider: ANKIT JIMENEZ PROCEDURES: Echocardiographic Report: Transthoracic echocardiogram with complete 2D, M-Mode, and color Dopplerexamination. With Strain Analysis. INDICATIONS: Coronary Artery Disease and I35.0 Nonrheumatic aortic (valve) stenosis. MEASUREMENTS: 2D/MM Value Range Doppler ValueRange EF Mod BP 49 % [ 52 - 72 ] BANDAR Vmax 1.19cm2 [ 2.00 - 4.00 ] Estimated EF 50 % AV Mean PG 31mmHg LVIDd 2D 5.52 cm [ 4.20 - 5.80 ] AV Peak Seven 3.60m/s [ 1.00 - 1.70 ] LVIDd MM 5.58 cm [ 4.20 - 5.80 ] AV Peak PG 52mmHg LVIDs 2D 4.40 cm [ 2.50 - 4.00 ] AV VTI 76.71cm LVIDs MM 3.31 cm [ 2.50 - 4.00 ] LVOT Diam 1.97 cm[ 1.70 - 2.10 ] LVPWd 2D 0.95 cm [ 0.60 - 1.00 ] LVOT Peak Seven 1.41m/s [ 0.70 - 1.10 ] LVPWd MM 0.71 cm [ 0.60 - 1.00 ] LVOT VTI 31.31cm IVSd 2D 1.06 cm [ 0.60 - 1.00 ] MV E Peak Seven 0.96m/s [ 0.60 - 1.30 ] IVSd MM 1.35 cm [ 0.60 - 1.00 ] MV A Peak Seven 1.28m/s [ 1.00 - 1.20 ] LA Dimension MM 3.22 cm [ 3.00 - 4.00 ] MV Mean PG 5 mmHg[ 0 - 5 ] AoR Diam MM 3.77 cm [ 3.10 - 3.70 ] MVA PHT 5.19cm2 [ 2.00 - 4.00 ] LA Volume Index 30 cc/m2 [ 16 - 34 ] MV Decel Time 166msec [ 104 - 258 ] PV Peak Seven 1.28 m/s [ 0.40 - 0.80 ] TR Peak Seven 2.93 m/s [ 1.00 - 2.80 ] TR Peak PG 34 mmHg RVSP 42.00 mmHg [ 10.00 - 36.00 ] E` 0.07 m/s E/E` 14 2D/MM Value Range Doppler ValueRange - FINDINGS: Interpretation Site: Exam was interpreted at [facility]. Left Ventricle: Normal left ventricular size. Normal global left ventricular systolicfunction. Impaired diastolic relaxation Grade I. Ejection fraction is measured at 49 %.Ejection Fraction is visually estimated to be 50 %. Global Longitudinal Strain is -14 %. Right Ventricle: Normal right ventricular size. Left Atrium: The left atrium is normal in size. Right Atrium: The right atrium is normal in size. Atrial Septum: Normal atrial septum. Mitral Valve: Normal appearance of the mitral valve. Mild mitral valve regurgitation. Aortic Valve: Moderate aortic stenosis. Peak Velocity of 3.60 m/s. Peak gradient of 52.0mmHg. Mean gradient of 31.0 mmHg. Valve area of 1.2 cm2. Aortic cusps appearmoderately sclerotic. The non coronary cusps is more calcified and immobilize than the left andright coronary cusps. Trace to mild aortic valve regurgitation. Tricuspid Valve: Normal appearance of the tricuspid valve. Estimated peak RVSP is 42 mmHg.Mild tricuspid regurgitation. Pulmonic Valve: Normal appearance of the pulmonic valve. Pericardium: Normal pericardium with no significant pericardial effusion. Aorta: Normal aortic root. IVC: Normal size and normal respiratory collapse consistent with normal rightatrial pressure (<5 mmHg). Pulmonary Artery: Normal pulmonary artery size. CONCLUSIONS: Normal left ventricular size. Normal global left ventricular systolicfunction. Impaired diastolic relaxation Grade I. Ejection fraction is measured at 49 %.Ejection Fraction is visually estimated to be 50 %. Global Longitudinal Strain is -14 %. The left atrium is normal in size. Normal appearance of the mitral valve. Mild mitral valve regurgitation. Moderate aortic stenosis. Peak Velocity of 3.60 m/s. Peak gradient of 52.0mmHg. Mean gradient of 31.0 mmHg. Valve area of 1.2 cm2. Aortic cusps appearmoderately sclerotic. The non coronary cusps is more calcified and immobilize than the left andright coronary cusps. Trace to mild aortic valve regurgitation. Normal left ventricular thickness argues against severe aortic stenosis. Electronically Signed By: Stan Hall MD, FACC 06/06/2024 1:30:15 PM HOT STRIP MILL SUPERVISOR [facility] Jaki Jimenez MD CV ECHO PROCEDURES Kimberley l Result * Electrocardiogram Report (06/04/2024 3:19 PM HOT STRIP MILL SUPERVISOR) [facility] Jaki Jimenez MD ECG ORDERABLES Final R esult from Last 3 Months Insurance MEDICARE [facility] MEDICARE IDWI [facility] MEDICARE Care Teams Medical Doctor Md/Medical Director Relationship Specialty Start Date End Date Delvis Hernández MD PCP - General 12/10/15
--- OUTSIDE RECORDS SUMMARY | 2024-07-31 10:42 | XMS_ITS | CONTINUITY OF CARE DOCUMENT ---
Author Name yousuf, yousuf Address Unknown Organization [facility] Address [address] [place] [address] Phone [phone] Care Team Providers Care Sewer Head Name Role Phone Cristobal Mcguire MD Unavailable ADDY NOGUEIRA, CHANTELLE F Unavailable [phone] ADDY NOGUEIRA, CHANTELLE F Unavailable PROBLEMS Condition Status Date Provider Notes Cardiology examination active Cristobal Mcguire MD Hx of abdominal aortic aneurysm (AAA) active 2 Cristobal Mcguire MD Hx of NH active Cristobal Mcguire MD Hyperlipidemia active Cristobal Mcguire MD Bladder cancer active Cristobal Mcguire MD Preoperative cardiovascular evaluation active Cristobal Mcguire MD ENCOUNTERS Date Type Provider Location Encounter Diag nosis - In-person encounter Office Visit Cristobal Mcguire MD [facility] Bladder cancerPreoperative cardiovascular evaluation - In-person encounter Office Visit Cristobal Mcguire MD [facility] Cardiology examinationHx of abdominal aortic aneurysm (AAA)Hx of MIHyperlipidemia VITAL SIGNS Date Observation Value Provider Body Mass Index (Ratio) 26.00 kg/m2 Devon Mcguire MD blood pressure, diastolic 65 mm[Hg] Leilani clayLogmelquiades blood pressure, systolic 135 mm[Hg] Rossi banner [facility] blood pressure, cuff size regular Ja blood pressure, diastolic 65 mm[Hg] Michael blood pressure, systolic 135 mm[Hg] Marty red pulse rate 75 /min Nick oxygen saturation, oximetry 98 % respiratory rate E&M 14 /min weight E&M 171 [lb_av] Nick height E&M 68 [in_i] Nick Body Mass Index (Ratio) 24.48 kg/m2 Devon Mcguire MD blood pressure, diastolic 75 mm[Hg] Leilani [facility] blood pressure, systolic 135 mm[Hg] Rossi [facility] respiratory rate E&M 16 /min Sherrie crawford blood pressure, diastolic 75 mm[Hg] Nolvia Yates blood pressure, systolic 135 mm[Hg] Fariha Yates oxygen saturation, oximetry 98 % Sherrie Yates pulse rate 60 /min Sherrie Yates height E&M 68 [in_i] Sherrie Yates weight E&M 161 [lb_av] Sherrie Yates blood pressure, cuff size large An ryder Yates ALLERGIES No Known Drug Allergies HISTORY OF MEDICATION USE Medication Status Instructions Dates Provider Indications Com ments tamsulosin 0.4 mg capsule active Cristobal Mcguire MD atorvastatin 40 mg tablet active Cristobal Mcguire MD SOCIAL HISTORY Date Observation Value Provider drug use, illicit, d rug of choice marijuana Cristobal Mcguire MD drug use yes Cristobal Mcguire MD alcohol use no Cristobal Mcguire MD smoking, year quit 1974 Cristobal benitez MD cigarette use yes Cristobal Shay D smoking status Former smoker Cristobal Mcguire MD drug use, illicit, d rug of choice marijuana Cristobal Mcguire MD drug use yes Cristobal Mcguire MD alcohol use no Cristobal Mcguire MD social history E&M S moking History: Minor becerril is a former smoker. Cristobal Mcguire MD social history reviewed E&M revi ewed - no changes required Cristobal Mcguire MD smoking, year quit 1974 Sherrie Will iams cigarette use yes Sherrie Milan smoking status Former smoker Sherrie Johnson s FUNCTIONAL STATUS Date Observation Value Provider HRA, CV Assess/Plan, Angina (inactive) Management Plan continue current therapy Cristobal Mcguire MD INSURANCE PROVIDERS Payer name Policy type / Coverage type [facility] Medicaid 0 [id number] [place] MED[place] Medicare [id number] ADVANCE DIRECTIVES Name Date DISCUSSED - NO DECISION MADE TREATMENT PLAN Date Name Performer [id number],C,C ontinue atorva H is updated medication list for this problem includes: Atorvastatin 40 Mg Tablet (Atorvastatin) Cristobal Mcguire MD Cardiology:On Atorvastatin Cristobal Mcguire MD Cardiology:He is hav ing no CP and is clear for surgery and is low risk. Continue his statin. Cristobal Mcguire MD Cardiology:Continue atorva H is updated medication list for this problem includes: Atorvastatin 40 Mg Tablet (Atorvastatin) Cristobal Mcguire MD Date Name Complete Echo Aorta Duplex Ultraso und HISTORY OF PROCEDURES Procedure Date Procedure Name Provider Procedure Notes S tatus EKG Cristobal Mcguire MD completed EKG Cristobal Mcguire MD completed
--- OUTSIDE RECORDS SUMMARY | 2024-07-31 10:42 | XMS_ITS | Clinical Summary ---
Author Organization [facility] [address] Address [address] [place] [address] Care Team Providers Care Pharmacy Intake Technician Name Role Phone Delvis Hernández MD Primary Care Provider [phone] Allergies No known active allergies Medications aspirin [...] artery disease) Coronary artery disease invo lving [place] coronary artery of [place] heart without angina pectoris 12/10/2015 Overview (08/17/2016): Coronary artery disease involving [place] coronary artery of [place] heart without angina pectoris Depression 12/10/2015 Overview [...] Date Dyslipidemia 12/10/2015 03/28/2021 Overview (08/17/2016): Dyslipidemia Encounters Date Type Department Care Team Description 06/17/2024 Orders Only [facility] Cardiology [address] [facility] [address] [place] [address] Ghazal Radford MA 06/17/2024 Telephone [facility] Cardiology [address] [facility] [address] [place] [address] Ankit Jimenez MD Med Management 06/12/2024 Telephone [facility] Cardiology [address] [place] [phone] Ankit Jimenez MD 06/06/2024 10:15 AM ASBESTOS REMOVAL SUPERVISOR Ancillary Procedure [facility] Cardiology at [address] [place] [phone] Coronary artery disease involving [place] coronary artery of [place] heart without angina pectoris; Nonrheumatic aortic valve stenosis 06/04/2024 9:15 AM ASBESTOS REMOVAL SUPERVISOR Office Visit [facility] Cardiology at [address] [place] [address] Ankit Jimenez MD Coronary artery disease involving [place] coronary artery of [place] heart without angina pectoris (Primary Dx); Peripheral arterial occlusive disease; Mixed hyperlipidemia; Essential hypertension; Nonrheumatic aortic valve stenosis from Last 3 Months Medical History Medical History Date Comments Aortic stenosis Coronary artery disease Family History Medical History Relation Name Comments Leukemia Father 2 Leukemia; Cervical cancer Mother 2 Cancer, cerv ical; Cause of : Cancer, cervical Relation Name Status Comments Father 1 Father 2 Mother 1 Mother 2 Social History Tobacco Use Types Packs/Day Years Used Date Smoking Tobacco: Former Smokeless Tobacco: Never Alcohol Use Standard Drinks/Week Comments Yes 0 (1 standard drink = 0.6 oz pur e alcohol) Sex and Gender Information Value Date Recorded Sex Assigned at Not on file Legal Sex Male 11:20 AM ASBESTOS REMOVAL SUPERVISOR Gender Identity Not on file Sexual Orientation Not on file Obstetrics History Last Filed Vital Signs Vital Sign Reading Time Taken Comments Blood Pressure 132/60 06/04/2024 9:24 AM ASBESTOS REMOVAL SUPERVISOR Pulse 91 06/04/2024 9:24 AM ASBESTOS REMOVAL SUPERVISOR Temperature 36.7 C (98 F) 11/09/2014 10:01 AM CDT Respiratory Rate 12 12/06/2016 9:39 AM CDT Oxygen Saturation 99% 06/04/2024 9:24 AM ASBESTOS REMOVAL SUPERVISOR Inhaled Oxygen Concentration - - Weight 82.1 kg (181 lb) 06/04/2024 9:24 AM ASBESTOS REMOVAL SUPERVISOR Height 172.7 cm (5' 8 ) 06/04/2024 9:24 AM ASBESTOS REMOVAL SUPERVISOR Body Mass Index 27.52 06/04/2024 9:24 AM ASBESTOS REMOVAL SUPERVISOR Plan of Treatment Health Maintenance Due Date Last Done Comments Depression Screening 1945 Fall Risk Assessment 1945 DTaP/Tdap/Td Vaccine (1 - Tdap) 08/05/1954 Hepatitis B Screening 08/05/1961 Abdominal Aortic Aneurysm (A AA) Screen 08/05/2008 Well Visit 65+ 08/05/2008 Zoster Vaccine (2 of 2) 12/27/2023 11/01/2023 Covid-19 Vaccine (2023-2 5 season) 2024 04/23/2024, 09/29/2023, 04/02/2023, Additional history exists Pneumococcal vaccine 65+ Completed 04/09/2015, 05/14 Influenza Vaccine Completed 04/23/2024, , 03/27/2022, Additional history exists Procedures Procedure Name Priority Date/Time Associated Diagnosis Comments TRANSTHORACIC ECHO (TTE) COMPLETE W DOPPLER/CF WO CONTRAST Routine 06/06/2024 10:44 AM ASBESTOS REMOVAL SUPERVISOR Coronary artery disease involving [place] coronary artery of [place] heart without angina pectoris Nonrheumatic aortic valve stenosis ELECTROCARDIOGRAM REPORT Routine 025 3:19 PM ASBESTOS REMOVAL SUPERVISOR Nonrheumatic aortic valve stenosis from Last 3 Months Results * TRANSTHORACIC ECHO (TTE) COMPLETE W DOPPLER/CF WO CONTRAST (06/06/2024 10:44 AM ASBESTOS REMOVAL SUPERVISOR) LV EF 50 % CONS SCIMAGE Anatomical Region Laterality Modality Ultrasound 06/06/2024 10:1 3 AM ASBESTOS REMOVAL SUPERVISOR Narrative 06/06/2024 1:31 PM ASBESTOS REMOVAL SUPERVISOR [facility] Group Cardiology [address], [address], [place] [address] P:[phone] P:[phone] Echocardiographic Report Patient Name: JUAN JOSE LANDRY [...] FINDINGS: Interpretation Site: Exam was interpreted at [facility]. Left Ventricle: Normal left ventricular size. [...] stenosis. Electronically Signed By: Stan Hall MD, [facility] 06/06/2024 1:30:15 PM ASBESTOS REMOVAL SUPERVISOR Procedure Note Stan Hall MD - 06/06/2024 [facility] Cardiology [address], [address], [place] [address] P:[phone] P:[phone] Echocardiographic Report Patient Name: JUAN JOSE LANDRY SR, R : 1945 Study Date: 06/06/2024 10:13:16 AM Gender: M Tech: SW Location: [facility] Ref Provider: ANKIT JIMENEZ Height(Cm): [...] FINDINGS: Interpretation Site: Exam was interpreted at [facility]. Left Ventricle: Normal left ventricular size. [...] stenosis. Electronically Signed By: Stan Hall MD, [facility] 06/06/2024 1:30:15 PM ASBESTOS REMOVAL SUPERVISOR Ankit Jimenez MD CV ECHO PROCEDURES Kimberley l Result * Electrocardiogram Report (06/04/2024 3:19 PM ASBESTOS REMOVAL SUPERVISOR) us Ankit Jimenez MD ECG ORDERABLES Final R esult from Last 3 Months Insurance MEDICARE [facility] MEDICARE [employer] [facility] MEDICARE Care Teams Pharmacy Intake Technician Relationship Specialty Start Date End Date Delvis Hernández MD PCP - General 12/10/15
[2024-07-31 12:05] LABS: Iron 22 ug/dL (49-181)
[2024-07-31 12:07] LABS: Anion Gap 9 mmol/L (4-12); Blood Urea Nitrogen 26 mg/dL (9-20); Calcium 9.1 mg/dL (8.4-10.2); Carbon Dioxide 25 mmol/L (22-30); Chloride 106 mmol/L (98-107); Estimated Glomerular Filt Rate 58; Glucose 133 mg/dL (65-110); Potassium 3.9 mmol/L (3.4-5.0); Sodium 140 mmol/L (137-145)
[2024-07-31 12:15] LABS: Percent Iron Saturation 6 % (20-50)
[2024-07-31 13:08] LABS: Folic Acid 18.5 ng/mL (2.76->20)
== END 2024-07-31 10:04 | disposition home or self-care (01) ==
PROVIDERS: PCP Family Medicine; Visit Provider Internal Medicine Hematology & Oncology
DX: D64.9 Anemia, unspecified (principal)
CPT/HCPCS: 36415; 80048; 82607; 82728; 82746; 83540; 83550; 85025

== ENCOUNTER 2024-08-20 08:56 | Outpatient (CLI) | payer MEDICARE, MEDICAID, SELFPAY ==
--- NOTE | ~2024-08-20 | CT_ITS ---
CT Scan of the Chest without Contrast: Clinical Indication: Pulmonary nodule Technique: Contiguous sections were acquired throughout the chest without intravenous contrast. Dose reduction technique was used on this scan by utilizing automated exposure control and iterative recon struction technique. The dose-length product (DLP) was 113.99 mGy-cm. COMPARISON: 01/31/2024 Findings: There is no evidence of any significant mediastinal, hilar or axillary lymphadenopathy. Calcified med iastinal and hilar lymph nodes are present. Coronary artery calcium patient are present. There is no evidence of pleural or pericardial effusion. Several calcified granulomas are present. Stable irregular somewhat nodular consolidation in the medi al left suprahilar region and superior segment left lower lobe. Images through the upper abdomen reveal small calcified gallstones. Impression: Stable irregular nodular consolidation/scarring in the medial aspect of the superior segment left low er lobe. Previously noted right upper lobe pulmonary nodule is resolved. Evidence of prior granulomatous disease. Reviewed, dictated and finalized at [facility]. Impression: Stable irregular nodular consolidation/scarring in the medial aspect of the sup erior segment left lower lobe. Previously noted right upper lobe pulmonary nodule is resolved. Evidence of prior granulomatous disease.
--- OUTSIDE RECORDS SUMMARY | 2024-08-20 09:50 | XMS_ITS | Referral Summary ---
Author Organization [facility] [address] [place] [address] [address] [facility] [address] [place] [address] Care Team Providers Care Customer Quality Engineer Name Role Phone Delvis Hernández MD Primary Care Provider [phone] Encounters Date Type Department Care Team Description 06/17/2024 Orders Only [facility] Medical [facility] Cardiology [address] [facility] [address] [place] [phone] Ghazal Radford MA 06/17/2024 Telephone [facility] Cardiology [address] [facility] [address] [place] [address] Ankit Jimenez MD Med Management 06/12/2024 Telephone [facility] Cardiology [address] [facility] [address] [facility] [place] [address] Ankit Jimenez MD 06/06/2024 10:15 AM INDUSTRIAL HYGENIST Ancillary Procedure [facility] Cardiology at [address] [place] [phone] Coronary artery disease involving [place] coronary artery of [place] heart without angina pectoris; Nonrheumatic aortic valve stenosis 06/04/2024 9:15 AM INDUSTRIAL HYGENIST Office Visit [facility] Group Cardiology at [address] [place] [phone] Ankit Jimenez MD Coronary artery disease involving [place] coronary artery of [place] heart without angina pectoris (Primary Dx); Peripheral [...] artery disease) Coronary artery disease invo lving [place] coronary artery of [place] heart without angina pectoris 12/10/2015 Overview (08/17/2016): Coronary artery disease involving [place] coronary artery of [place] heart without angina pectoris Depression 12/10/2015 Overview [...] on file Legal Sex Male 11:20 AM INDUSTRIAL HYGENIST Gender Identity Not on file Sexual Orientation Not on file Last Filed Vital Signs Vital Sign Reading Time Taken Comments Blood Pressure 132/60 06/04/2024 9:24 AM INDUSTRIAL HYGENIST Pulse 91 06/04/2024 9:24 AM INDUSTRIAL HYGENIST Temperature 36.7 C (98 F) 11/09/2014 10:01 AM CDT Respiratory Rate 12 12/06/2016 9:39 AM CDT Oxygen Saturation 99% 06/04/2024 9:24 AM INDUSTRIAL HYGENIST Inhaled Oxygen Concentration - - Weight 82.1 kg (181 lb) 06/04/2024 9:24 AM INDUSTRIAL HYGENIST Height 172.7 cm (5' 8 ) 06/04/2024 9:24 AM INDUSTRIAL HYGENIST Body Mass Index 27.52 06/04/2024 9:24 AM INDUSTRIAL HYGENIST Plan of Treatment Not on file Procedures Procedure Name Priority Date/Time Associated Diagnosis Comments TRANSTHORACIC ECHO (TTE) COMPLETE W DOPPLER/CF WO CONTRAST Routine 06/06/2024 10:44 AM INDUSTRIAL HYGENIST Coronary artery disease involving [place] coronary artery of [place] heart without angina pectoris Nonrheumatic aortic valve stenosis ELECTROCARDIOGRAM REPORT Routine 025 3:19 PM INDUSTRIAL HYGENIST Nonrheumatic aortic valve stenosis from Last 3 Months Results * TRANSTHORACIC ECHO (TTE) COMPLETE W DOPPLER/CF WO CONTRAST (06/06/2024 10:44 AM INDUSTRIAL HYGENIST) LV EF 50 % CONS SCIMAGE Anatomical Region Laterality Modality Ultrasound 06/06/2024 10:1 3 AM INDUSTRIAL HYGENIST Narrative 06/06/2024 1:31 PM INDUSTRIAL HYGENIST [facility] Cardiology [address] , [address], [place] [address] P:[phone] P:[phone] Echocardiographic Report Patient Name: JUAN JOSE LANDRY [...] FINDINGS: Interpretation Site: Exam was interpreted at [facility]. Left Ventricle: Normal left ventricular size. Normal [...] stenosis. Electronically Signed By: Stan Hall MD, [facility] 06/06/2024 1:30:15 PM INDUSTRIAL HYGENIST Procedure Note Stan Hall MD - 06/06/2024 [facility] Cardiology [address] [facility], [address], [place] [address] P:[phone] P:[phone] Echocardiographic Report Patient Name: JUAN JOSE LANDRY [...] FINDINGS: Interpretation Site: Exam was interpreted at [facility]. Left Ventricle: Normal left ventricular size. Normal [...] Stan Hall MD, [facility] 06/06/2024 1:30:15 PM INDUSTRIAL HYGENIST [facility] Jaki Jimenez MD CV ECHO PROCEDURES Kimberley l Result * Electrocardiogram Report (06/04/2024 3:19 PM INDUSTRIAL HYGENIST) [facility] Jaki Jimenez MD ECG ORDERABLES Final R esult from Last 3 Months Insurance MEDICARE [facility] Address: [address] [phone] [facility] MEDICARE [facility] Address: [address] [address] [facility] MEDICARE [facility] Address: [address] [address] [place] [address] Care Teams Customer Quality Engineer Relationship Specialty Start Date End Date Delvis Hernández MD PCP - General 12/10/15
--- OUTSIDE RECORDS SUMMARY | 2024-08-20 09:50 | XMS_ITS | Clinical Summary ---
Author Organization [facility] Address [facility] [place] [address] Care Team Providers Care College Teacher Name Role Phone Delvis Hernández MD Primary Care Provider [phone] Juan Em MD Unavailable [phone] Allergies No known active allergies Medications [...] 2024 04/02/2023, 03/27/2022, 12/01/2021, Additional history exists Pneumococcal Vaccine: 65+ Years [...] this topic Insurance MEDICARE MEDICAID Care Teams College Teacher Relationship Specialty Start Date End Date Delvis Hernández MD [address] [place] [address] PCP - General FAMILY PRACTICE 08/03/23 Juan Em MD [address] [facility] [address] [place] [address] HEMATOLOGY/ONCOLOGY 08/03/23
--- OUTSIDE RECORDS SUMMARY | 2024-08-20 09:50 | XMS_ITS | Clinical Summary ---
Author Organization [facility] Kenneth Borges Address [address] [place] [address] Care Team Providers Care Cognos Bi Administrator Name Role Phone Delvis Hernández MD Primary Care Provider [phone] Allergies No known active allergies Medications tamsulosin [...] by mouth daily at bedtime. 11/22/2023 Active losartan (COZAAR) 25 mg tablet Take 25 mg by mouth daily. 06/23/2024 Active metoprolol succinate (TOPROL XL) 25 mg Extended Release 24 hour tablet Take 25 mg by mouth daily. 07/29/2024 Active Active Problems Problem Noted Date Diagnosed Date Iron deficiency anemia 09/22/2020 Encounters Date Type Department Care Team Description 08/04/2024 Orders Only [facility] Oncology and Hematology - [place] [address] [place] [address] Juan Em MD 08/01/2024 10:45 AM CDT Office Visit [facility] Oncology and Hematology [facility] [address] [place] [address] Juan Em MD Chronic anemia (Primary Dx) 08/01/2024 Orders Only [facility] Oncology and Hematology [facility] [address] [place] [address] Juan Em MD 07/30/2024 External Device Data ST[facility] ABSTRACTION Provider, Abstract 07/19/2024 External Device Data [facility] ABSTRACTION Provider, [...] Sign Reading Time Taken Comments Blood Pressure 114/54 08/01/2024 10:30 AM CDT Pulse 87 08/01/2024 10:30 AM CDT Temperature 36.6 C (97.9 F) 08/01/2024 10:30 AM CDT Respiratory Rate 16 08/01/2024 10:30 AM CDT Oxygen Saturation 98% 08/01/2024 10:30 AM CDT Inhaled Oxygen Concentration - - Weight 77.2 kg (170 lb 3.2 oz) 08/01/2024 10:30 AM CDT Height 172.7 cm (5' 8 ) 10/13/2021 10:09 AM CDT Body Mass Index 25.88 10/13/2021 10:09 AM CDT Plan of Treatment Upcoming Encounters Date Type Department Care Team (Late st Contact Info) Description 10/10/2024 10:00 AM CDT Office Visit [facility] Oncology and Hematology - [place] [address] [place] [address] Juan Em MD [address] [facility] [address] [place] [address] Health Maintenance Due Date Last [...] Flex Sig/CT Colonography Q 5 years Discontinued Procedures Procedure Name Priority Date/Time Associated Diagnosis Comments CBC WITH DIFFERENTIAL Routine 07/31/2024 12:42 PM CDT BASIC METABOLIC PANEL Routine 07/31/2024 11:23 AM CDT from Last 3 Months Results * CBC WITH DIFFERENTIAL (07/31/2024 12:42 PM CDT) Blood Juan Em MD HEMATOLOGY ORDERABLES Final Res ult * BASIC METABOLIC PANEL (07/31/2024 11:23 AM CDT) Blood us Juan Em MD CHEMISTRY ORDERABLES Final Resu lt from Last 3 Months Insurance MEDICAID [place] MEDICARE PART A AND B Care Teams Cognos Bi Administrator Relationship Specialty Start Date End Date Delvis Hernández MD [address] [place] [address] PCP - General Family Practice 09/22/20
--- OUTSIDE RECORDS SUMMARY | 2024-08-20 09:50 | XMS_ITS | Clinical Summary ---
Author Organization [facility] [address] Address [address] [place] [address] Care Team Providers Care Audit Partner Name Role Phone Delvis Hernández MD Primary Care Provider [phone] Allergies No known active allergies Medications aspirin [...] artery disease) Coronary artery disease invo lving [place] coronary artery of [place] heart without angina pectoris 12/10/2015 Overview (08/17/2016): Coronary artery disease involving [place] coronary artery of [place] heart without angina pectoris Depression 12/10/2015 Overview [...] Description 06/17/2024 Orders Only [facility] Cardiology [address] [facility] [address] [place] [address] Ghazal Radford MA 06/17/2024 Telephone [facility] Cardiology [address] [facility] [address] [place] [address] Ankit Jimenez MD Med Management 06/12/2024 Telephone [facility] Cardiology [address] [place] [address] Ankit Jimenez MD 06/06/2024 10:15 AM ORNAMENTAL PAINTER Ancillary Procedure [facility] Cardiology at [address] [place] [phone] Coronary artery disease involving [place] coronary artery of [place] heart without angina pectoris; Nonrheumatic aortic valve stenosis 06/04/2024 9:15 AM ORNAMENTAL PAINTER Office Visit [facility] Cardiology at [address] [place] [address] Ankit Jimenez MD Coronary artery disease involving [place] coronary artery of [place] heart without angina pectoris (Primary Dx); Peripheral [...] on file Legal Sex Male 11:20 AM ORNAMENTAL PAINTER Gender Identity Not on file Sexual Orientation Not on file Obstetrics History Last Filed Vital Signs Vital Sign Reading Time Taken Comments Blood Pressure 132/60 06/04/2024 9:24 AM ORNAMENTAL PAINTER Pulse 91 06/04/2024 9:24 AM ORNAMENTAL PAINTER Temperature 36.7 C (98 F) 11/09/2014 10:01 AM CDT Respiratory Rate 12 12/06/2016 9:39 AM CDT Oxygen Saturation 99% 06/04/2024 9:24 AM ORNAMENTAL PAINTER Inhaled Oxygen Concentration - - Weight 82.1 kg (181 lb) 06/04/2024 9:24 AM ORNAMENTAL PAINTER Height 172.7 cm (5' 8 ) 06/04/2024 9:24 AM ORNAMENTAL PAINTER Body Mass Index 27.52 06/04/2024 9:24 AM ORNAMENTAL PAINTER Plan of Treatment Health Maintenance Due Date [...] DOPPLER/CF WO CONTRAST Routine 06/06/2024 10:44 AM ORNAMENTAL PAINTER Coronary artery disease involving [place] coronary artery of [place] heart without angina pectoris Nonrheumatic aortic valve stenosis ELECTROCARDIOGRAM REPORT Routine 025 3:19 PM ORNAMENTAL PAINTER Nonrheumatic aortic valve stenosis from Last 3 Months Results * TRANSTHORACIC ECHO (TTE) COMPLETE W DOPPLER/CF WO CONTRAST (06/06/2024 10:44 AM ORNAMENTAL PAINTER) LV EF 50 % CONS SCIMAGE Anatomical Region Laterality Modality Ultrasound 06/06/2024 10:1 3 AM ORNAMENTAL PAINTER Narrative 06/06/2024 1:31 PM ORNAMENTAL PAINTER [facility] Cardiology [address] [facility], [address], [place] [address] P:[phone] P:[phone] Echocardiographic Report Patient Name: JUAN JOSE LANDRY [...] FINDINGS: Interpretation Site: Exam was interpreted at [facility]. Left Ventricle: Normal left ventricular [...] stenosis. Electronically Signed By: Stan Hall MD, [facility] 06/06/2024 1:30:15 PM ORNAMENTAL PAINTER Procedure Note Stan Hall MD - 06/06/2024 [facility] Cardiology [address] [facility], [address], [place] [address] P:[phone] P:[phone] Echocardiographic Report Patient Name: JUAN JOSE LANDRY [...] FINDINGS: Interpretation Site: Exam was interpreted at [facility]. Left Ventricle: Normal left ventricular [...] stenosis. Electronically Signed By: Stan Hall MD, [facility] 06/06/2024 1:30:15 PM ORNAMENTAL PAINTER Ankit Jimenez MD CV ECHO PROCEDURES Kimberley l Result * Electrocardiogram Report (06/04/2024 3:19 PM ORNAMENTAL PAINTER) us Ankit Jimenez MD ECG ORDERABLES Final R esult from Last 3 Months Insurance MEDICARE [facility] MEDICARE [facility] MEDICARE Care Teams Audit Partner Relationship Specialty Start Date End Date Delvis Hernández MD PCP - General 12/10/15
--- OUTSIDE RECORDS SUMMARY | 2024-08-20 09:50 | XMS_ITS | CONTINUITY OF CARE DOCUMENT ---
Author Name yousuf, yousuf Address Unknown Organization [facility] Address [address] [place] [address] Phone [phone] Care Team Providers Care Senior Water Resources Engineer Name Role Phone Cristobal Mcguire MD Unavailable ADDY NOGUEIRA, CHANTELLE F Unavailable [phone] ADDY NOGUEIRA, CHANTELLE F Unavailable PROBLEMS Condition [...] In-person encounter Office Visit Cristobal Mcguire MD [facility] Bladder cancerPreoperative cardiovascular evaluation - In-person encounter Office Visit Cristobal Mcguire MD [facility] Cardiology examinationHx of abdominal aortic aneurysm (AAA)Hx of MIHyperlipidemia VITAL SIGNS Date Observation Value Provider Body Mass Index (Ratio) 26.00 kg/m2 Devon Mcguire MD blood pressure, diastolic 65 mm[Hg] Leilani clayLogmelquiades blood pressure, systolic 135 mm[Hg] Rossi [facility] blood pressure, cuff size regular Ja blood pressure, diastolic 65 mm[Hg] Michael blood pressure, systolic 135 mm[Hg] Marty red pulse rate 75 /min Nick oxygen saturation, oximetry 98 % respiratory rate E&M 14 /min weight E&M 171 [lb_av] Nick height E&M 68 [in_i] Nick Body Mass Index (Ratio) 24.48 kg/m2 Devon Mcguire MD blood pressure, diastolic 75 mm[Hg] [facility] blood pressure, systolic 135 mm[Hg] Rossi [facility] respiratory rate E&M 16 /min Sherrie crawford [...] Payer name Policy type / Coverage type [facility] Medicaid 0 [id number] [place] Medicare [id number] ADVANCE DIRECTIVES Name Date DISCUSSED - NO DECISION MADE TREATMENT PLAN Date Name Performer [id number],C,C ontinue atorva H is updated medication list [...]
--- OUTSIDE RECORDS SUMMARY | 2024-08-20 09:50 | XMS_ITS | Data Portability ---
Author Organization [facility], Main Office Address [address] [place] [address] Assessment No assessment recorded. Plan of Treatment Reminders Order Date Submit Date Provider Last Modified By Organization Details Last Modified Time Details Appointments None recorded. Lab urinalysis, dipstick 2022 023 [email or web address] [facility], [address] [place], [place] [address], [place], [address], 3 13:05:45 Referral None recorded. Procedures None recorded. Surgeries cystoscopy (SURG) 2022 023 [email or web address] Not available 13:13:40 Imaging None recorded. Medication Orders None recorded. Patient TargetsNo targets recorded. Patient InstructionsNo instructions recorded. Reason for Referral None Reported. Results Created Date Observation Date Name Description Value Unit Range Abnormal Flag Note LastModifiedBy Organization Detail LastModifiedTime 08/11/19 22 08/10/2021 urina lysis , dipst ick Leukocytes (reference range: negative destiny/ l) Negati ve Not Available [facility] [address] [place], [address], 08/10/2021 10:47:07 08/11/19 22 08/10/2021 urina lysis , dipst ick Nitrite (reference rage: negative mg/dl) negati ve Not Available [facility] [address], [address], [address], 08/10/2021 10:47:07 08/11/19 22 08/10/2021 urina lysis , dipst ick Urobilinogen (reference range: 0.2-1 mg/dl) 0.2 Not Available [address], [address], [address], 08/10/2021 10:47:07 08/11/19 22 08/10/2021 urina lysis , dipst ick Protein (reference range: negative mg/dl) Negati ve Not Available [address], [address], 08/10/2021 10:47:07 08/11/19 22 08/10/2021 urina lysis , dipst ick pH (reference range: 5-7) 6.5 Not Available [address], [address], 08/10/2021 10:47:07 08/11/19 22 08/10/2021 urina lysis , dipst ick Blood (reference range: negative Bulmaro/ l) Non-He molyze d: Trace Not Available [address], [address], 08/10/2021 10:47:07 08/11/19 22 08/10/2021 urina lysis , dipst ick Specific Boswell (reference range: 1.005-1.030) 1.020 Not Available [address], [address], 08/10/2021 10:47:07 08/11/19 22 08/10/2021 urina lysis , dipst ick Ketone (reference range: negative mg/dl) Negati ve Not Available [facility] [place] [address], [address] , [place], [address], 08/10/2021 10:47:07 08/11/19 22 08/10/2021 urina lysis , dipst ick Bilirubin (reference range: negative mg/dl) Negati ve Not Available [address], [address], 08/10/2021 10:47:07 08/11/19 22 08/10/2021 urina lysis , dipst ick Glucose (reference range: negative mg/dl) Negati ve Not Available [address], [address], 08/10/2021 10:47:07 08/11/19 22 08/10/2021 urina lysis , dipst ick Appearance Clear Not Available [address], [address], 08/10/2021 10:47:07 08/11/19 22 08/10/2021 urina lysis , dipst ick Color Yellow Not Available [address], [address], 08/10/2021 10:47:07 04/20/20 22 04/20/2022 urina lysis , dipst ick Leukocytes (reference range: negative destiny/ l) Negati ve Not Available [address], [address], 04/18/2022 21:31:20 04/20/20 22 04/20/2022 urina lysis , dipst ick Urobilinogen (reference range: 0.2-1 mg/dl) 0.2 Not Available [address], [address], 04/18/2022 21:31:20 04/20/20 22 04/20/2022 urina lysis , dipst ick Nitrite (reference rage: negative mg/dl) negati ve Not Available [address], [address], 04/18/2022 21:31:20 04/20/20 22 04/20/2022 urina lysis , dipst ick Protein (reference range: negative mg/dl) Negati ve Not Available [address], [address], 04/18/2022 21:31:20 04/20/20 22 04/20/2022 urina lysis , dipst ick pH (reference range: 5-7) 5.5 Not Available [address], [address], 04/18/2022 21:31:20 04/20/20 22 04/20/2022 urina lysis , dipst ick Blood (reference range: negative Bulmaro/ l) Small Not Available [address], [address], 04/18/2022 21:31:20 04/20/20 22 04/20/2022 urina lysis , dipst ick Specific Boswell (reference range: 1.005-1.030) 1.025 Not Available [address], [address], 04/18/2022 21:31:20 04/20/20 22 04/20/2022 urina lysis , dipst ick Ketone (reference range: negative mg/dl) Negati ve Not Available [address], [address], 04/18/2022 21:31:20 04/20/20 22 04/20/2022 urina lysis , dipst ick Bilirubin (reference range: negative mg/dl) Negati ve Not Available [address], [address], 04/18/2022 21:31:20 04/20/20 22 04/20/2022 urina lysis , dipst ick Glucose (reference range: negative mg/dl) Negati ve Not Available [address], [address], 04/18/2022 21:31:20 04/20/20 22 04/20/2022 urina lysis , dipst ick Appearance Clear Not Available [address], [address], 04/18/2022 21:31:20 04/20/20 22 04/20/2022 urina lysis , dipst ick Color Yellow Not Available [address], [address], 04/18/2022 21:31:20 07/27/19 23 07/26/2022 urina lysis , dipst ick Leukocytes (reference range: negative destiny/ l) Negati ve Not Available [place] [address], [place], [address], 07/26/2022 12:54:57 07/27/19 23 07/26/2022 urina lysis , dipst ick Nitrite (reference rage: negative mg/dl) negati ve Not Available [facility] [address] [place] [address] [address], [place], [address], 07/26/2022 12:54:57 07/27/19 23 07/26/2022 urina lysis , dipst ick Urobilinogen (reference range: 0.2-1 mg/dl) 0.2 Not Available [facility] [address], [place], [address], 07/26/2022 12:54:57 07/27/19 23 07/26/2022 urina lysis , dipst ick Protein (reference range: negative mg/dl) Negati ve Not Available [facility] [address] [facility] [address], [place], [address], 07/26/2022 12:54:57 07/27/19 23 07/26/2022 urina lysis , dipst ick pH (reference range: 5-7) 6.0 Not Available [facility] [address] [facility] [address], [place], [address], 07/26/2022 12:54:57 07/27/19 23 07/26/2022 urina lysis , dipst ick Blood (reference range: negative Bulmaro/ l) Negati ve Not Available [facility] [address], [place], [address], 07/26/2022 12:54:57 07/27/19 23 07/26/2022 urina lysis , dipst ick Specific Boswell (reference range: 1.005-1.030) 1.025 Not Available s _[facility] [address], [place], [address], 07/26/2022 12:54:57 07/27/19 23 07/26/2022 urina lysis , dipst ick Ketone (reference range: negative mg/dl) Negati ve Not Available [facility] [address], [place], [address], 07/26/2022 12:54:57 07/27/19 23 07/26/2022 urina lysis , dipst ick Bilirubin (reference range: negative mg/dl) Negati ve Not Available [facility] [address], [place], [address], 07/26/2022 12:54:57 07/27/19 23 07/26/2022 urina lysis , dipst ick Glucose (reference range: negative mg/dl) Negati ve Not [facility] [address] [facility] [address], [place], [address], 07/26/2022 12:54:57 05/10/20 21 05/04/2021 XR, cysto ureth rogra m, retro grade No observ ation record ed. [id number] Not Available 07/13/2022 00:28:29 Result Notes None recorded. Problems Name Problem SNOMED Code Status Onset Date Resolution Date Notes Provider Name and Address Organization Details Recorded Time Nocturia 042370571 Active 022 Not Available [facility] 3 00:26:54 Malignant neoplasm of lateral wall of urinary bladder 157539309 Active 022 Not Available [facility] 3 00:26:54 Urethral stricture 90771823 Active 023 Gerard Lockett MD [address], [address], [place], [address] , [facility] 09:16:45 Problem Notes None recorded. Procedures Surgical History Date Name Laterality Status Provider Name and Address Organization Details Recorded Time 07/27/19 Cystoscopy (male) completed Gerard Lockett MD [address] [facility], [address], [place], [address], [facility] 07/26/2022 13:04:27 Appendectomy completed Not Available [facility] 07/13/2022 00:25:57 Neck Surgeries completed Not Available [facility] 07/13/2022 00:25:57 Imaging Results Imaging Date Name Status LastModified by Organiz ation Details LastModified Time 05/04/2021 XR, cystourethrogra m, retrograde completed [id number] Information not available 07/13/2022 00:28:29 Procedure Notes None recorded. Medical Equipment None Reported. Medications Name Sig Start Date Stop Date Status Note LastModified by Organization Details LastModified Time cyclobenzap rine 10 mg tablet TAKE 1 TABLET BY MOUTH EVERY NIGHT AT BEDTIME 04/29 completed Not Available Not Available Not Available atorvastati n 40 mg tablet TAKE 1 TABLET BY MOUTH DAILY active Not Available Not Available No t Available tizanidine 2 mg tablet TAKE 1 TABLET BY MOUTH THREE TIMES DAILY NEEDED FOR MUSCLE SPASMS active Not Available Not Available No t Available oxybutynin chloride ER 10 mg tablet,exte nded release 24 hr TAKE 1 TABLET BY MOUTH DAILY AT BEDTIME. active Not Available Not Available No t Available azithromyci n 250 mg tablet TAKE 2 TABLET BY MOUTH TODAY THEN 1 TABLET BY MOUTH FOR 4 DAYS 08/10 completed Not Available Not Available Not Available pravastatin 40 mg tablet TAKE 1 TABLET BY MOUTH DAILY active Not Available Not Available No t Available meloxicam 15 mg tablet TAKE 1 TABLET BY MOUTH DAILY active Not Available Not Available No t Available ciprofloxac in 500 mg tablet Take 1 tablet every 12 hours by oral route. 07/26 completed Not Available Not Available Not Available tramadol 50 mg tablet TAKE 1 TABLET BY MOUTH EVERY 8 HOURS NEEDED FOR PAIN active Not Available Not Available No t Available simvastatin 40 mg tablet TAKE 1 TABLET BY MOUTH DAILY 04/29 completed Not Available Not Available Not Available ketorolac 10 mg tablet active Not Available Not Available Not Available pravastatin 10 mg tablet TAKE 1 TABLET BY MOUTH EVERY NIGHT AT BEDTIME active Not Available Not Available No t Available tamsulosin 0.4 mg capsule TAKE 1 CAPSULE BY MOUTH 30 MINUTES AFTER A MEAL active Not Available Not Available No t Available oxycodone 5 mg capsule TAKE 1 CAPSULE BY MOUTH EVERY 6 HOURS NEEDED FOR BREAKTHRO UGH PAIN active Not Available Not Available No t Available diclofenac sodium 75 mg tablet,sahil yed release TAKE 1 TABLET BY MOUTH TWICE DAILY active Not Available Not Available No t Available methylpredn isolone 4 mg tablets in a dose pack FOLLOW PACKAGE DIRECTION S active Not Available Not Available No t Available oxycodone 5 mg tablet TAKE 1 TABLET BY MOUTH EVERY 6 HOURS NEEDED FOR SEVERE PAIN SCALE 7-10 active Not Available Not Available No t Available rosuvastati n 40 mg tablet 04/29 completed Not Available Not Available Not Available lidocaine 2 % mucosal jelly in applicator Take by mucous route. 07/26 completed Not Available Not Available Not Available Suprep Bowel Prep Kit 17.5 gram-3.13 gram-1.6 gram oral solution 04/29 completed Not Available Not Available Not Available Vitals Date Recorded Body mass index (BMI) Body height Oxygen saturation Oxygen saturation in Arterial blood by Pulse oximetry Heart rate Body temperature Body weight Systolic blood pressure Diastolic blood pressure Provider Name and Address Organization Details Last Updated DateTime 1 26.8 kg/m2 172.72 cm 99 % 99 % 94 /min 98.2 [degF] 32024.2 6 g 157 mm[Hg] 81 mm[Hg] Not Available [facility] 3 00:26:33 Date Recorded Body mass index (BMI) Body height Oxygen saturation Oxygen saturation in Arterial blood by Pulse oximetry Heart rate Body temperature Body weight Provider Name and Address Organization Details Last Updated DateTime 2 26.6 kg/m2 172.72 cm 99 % 99 % 88 /min 98.4 [degF] 55215.6 6 g Not Available [facility] 3 00:26:34 Date Recorded Body height Provider Name an d Address Organization Details Last Updated DateTime 08/10/2021 172.72 cm Not Available [facility] 3 00:26:33 Date Recorded Body height Provider Name an d Address Organization Details Last Updated DateTime 05/12/2022 172.72 cm Not Available [facility] 00:26:33 Date Recorded Body height Provider Name an d Address Organization Details Last Updated DateTime 07/26/2022 172.72 cm Ivette Concepcion MA [place] - [facility] [place] [facility] 07/26/2022 12:31:46 Date Recorded Oxygen saturation Oxygen saturation in Arterial blood by Pulse oximetry Body temperature Heart rate Provider Name and Address Organization Details Last Updated DateTime 07/26/2022 97 % 97 % 98.4 [degF] 67 /min GIANFRANCO John [facility] 12:54:29 Social History None recorded. Functional Status None recorded. Mental Status None recorded. Family History Relationship Description Onset Age of this Age Resolved Age Notes LastModified by Organization Details LastModified Time Brother Diabetes mellitus [id number] Not available 07/13/2022 00:26:00 Brother Malignant tumor of prostate [id number] Not available 07/13/2022 00:26:00 Sister Diabetes mellitus [id number] Not available 07/13/2022 00:26:00 Medical History Condition Response CYSTITIS N BLINDNESS N RHEUMATIC FEVER N KIDNEY STONES N BLADDER PROBLEMS N Enlarged Prostate N SLEEP APNEA N MRSA N INFECTIOUS DISEASE N LUNG DISEASE/DISORDER N HEART ARRHYTHMIA N PROSTATE N INSOMNIA N HISTORY OF DRUG ABUSE N RADIATION / CHEMOTHERAPY N COPD N HIGH CHOLESTEROL / HYPERLIPIDEMIA N HYPERTHYROIDISM N UTI N BLOOD DISEASES N EDEMA N HYPOTHYROIDISM N SHINGLES N BOWEL PROBLEMS N BACK / NECK PROBLEMS N DEPRESSION (INCLUDING POST ) N HAVE YOU BEEN HOSPITALIZED OR SEEN IN [facility] IN THE PAST YEAR ? N STROKE/TIA N THYROID DISEASE N BENIGN PROSTATIC HYPERPLASIA N DIALYSIS N OBESITY N GERD/NAUSEA N ANEURYSM N OSTEOPOROSIS N URINARY/BLADDER/KIDNEY PROBLEMS N Increased Urination N CORONARY ARTERY DISEASE (CAD) N ARTHRITIS Y USE OF BLOOD THINNERS N NO SIGNIFICANT PAST MEDICAL HISTORY N DIABETES, TYPE N EMPHYSEMA N PARKINSON N GASTROINTESTINAL DISORDER N GASTROINTESTINAL BLEEDING N BLOOD CLOTS N Difficulty Urinating N HEPATITIS / LIVER DISEASE N ASTHMA N CATARACTS N GOUT N SLEEP DISORDER N ALZHEIMER'S DISEASE N HERPES N ERECTILE DYSFUNCTION N SEIZURES/EPILEPSY N HEADACHES/MIGRAINES N GI PROBLEMS N PACEMAKER N Low Testosterone N HEART MURMUR Y DIZZINESS N KIDNEY DISEASE N HEART DISEASE/HEART PROBLEMS N AIDS/HIV N MULTIPLE SCLEROSIS N LIVER DISEASE N MALE HYPOGONADISM N HYPERTENSION N CANCER: SPECIFY N TOURETTE'S N BLOOD TRANSFUSION N ANEMIA/BLOOD DISORDER N ANESTHESIA COMPLICATIONS N ATRIAL FIBRILLATION N AUTOIMMUNE DISEASE N TUBERCULOSIS N GLAUCOMA N Past Encounters Encounter ID Performer Location Encounter Start Date Encounter Closed Date Diagnosis/Indication Diagnosis SNOMED-CT Code Diagnosis ICD10 Code Diagnosis Note [id number] [facility] [address] [address] 04/29/2021 00:00:00 04/30/2021 07:33:37 [id number] [facility] [address] [address] 05/11/2021 00:00:00 05/11/2021 13:30:34 [id number] [facility] [address] [address] 08/10/2021 00:00:00 08/10/2021 13:22:49 [id number] [facility] [address] [address] 04/19/2022 00:00:00 04/19/2022 11:43:24 [id number] [facility] [address] [address] 05/12/2022 00:00:00 05/22/2022 13:54:16 [id number] Gerard Lockett MD [facility] [address] [address] 07/26/2022 12:17:14 07/26/2022 13:10:53 Urethral stricture 81036781 N35.919 :Fossa noviculari s narrowing requiring dilation for resectosco pe to pass Will observe for now Nocturia 739319397 R35.1 :I counseled the patient on behavioral modificati ons first to minimize his nocturia, as a large part of the issue is likely volume-rel ated, third-spac ing, or physiologi c rather than predominan tly a bladder outlet obstructio n or bladder dysfunctio n (though those may be present as well. He will try ceasing PO intake 3 hours prior to bedtime and elevating his legs prior to bed; he will void right before bed. If this does not help, he will seek a referral for a Sleep Study to determine if he needs CPAP, by his PCP. If these interventi ons do not help enough, we can consider additional testing and therapies. Malignant neoplasm of lateral wall of urinary bladder 154352855 C67.2 :03/[address] [place] [address] AP - 3cm left lateral wall enhancing bladder mass; no hydronephr osis 05/04/2021 TURBT, urethral dilation (fossa noviculari s) Bilateral RGP - LGTa, NMIBC, muscle present and uninvolved ; normal RGP's; single 3cm left lateral wall tumor; no other tumors 08/10/2021 Cysto - Normal meatus, no urethral strictures ; scope easily passed; 50-60cc prostate with lateral lobe coaptation , no median lobe; mild bladder trabeculat ions; no bladder tumors or stones; bilateral normal ureteral orifices 04/19/2022 Cysto - Normal meatus, no urethral strictures ; scope easily passed; 50-60cc prostate with lateral lobe coaptation , no median lobe; mild bladder trabeculat ions; has two 5mm tumors on posterior bladder wall, and 1cm tumor on left anterior bladder neck -- all papillary and low-grade appearing; bilateral normal ureteral orifices 05/10/2022 - TURBT, b/l RGP, Intravesic al Gemcitabin e -- NO strictures in urethra; 1 cm papillary tumor at the right bladder neck, and two 5mm tumors on the posterior bladder wall Patient with LOW RISK bladder cancer -- though he had a recurrence within 1 year, only at his 2nd TURBT did he get Gemcitabin e, so will continue to monitor as LOW RISK PLAN:-Cyst oscopy today - no tumors but will continue to monitor his right lateral wall/prior resection site-RTC 9 mos for repeat cystoscopy -Previousl y discussed important of follow ups due to tendency for bladder cancers to recur-Advi sed smoking cessation, or at least reduction in frequency 07/26/2022 Cysto - Normal meatus, no urethral strictures ; scope easily passed; 50-60cc prostate with lateral lobe coaptation , no median lobe; mild bladder trabeculat ions; has mild erythema on right lateral wall near trigone, but no papillary masses; bilateral normal ureteral orifices Health Concerns Section Related Observation LastModified by Organization Detai ls LastModified Time None Recorded Concern Status LastModified by Organization Details LastModified Time None Recorded Advance Directives Directive None Recorded Payers Encounter Date Sequence Insurance Name Policy Number Policy Thomas Covered Member ID Thomas Member ID Guarantor Name 07/26/2022 1 [place] Palmer Landry [id number] Palmer Landry Sr 07/26/2022 2 [place] Palmer Landry Sr [id number] Palmer Landry Notes Date Note Type Note Provider Name and Address Organization Details Recorded Time 07/26/2022 text/html :ORIGINAL HPI 05/11/2021 - Patient (Previously seen by Dr. Nava, and again by Dr. Jorgensen) who presents for evaluation of Bladder Cancer diagnosed on 05/04/[address] Lockett due to expediting operative intervention.-DIAG NOSIS/STAGE: Low Grade Ta, UCC, NMIBC, Low Risk Disease -OPERATIONS/TREATM ENTS:05/04/2021 TURBT, urethral dilation (fossa novicularis) Bilateral RGP - LGTa, NMIBC, muscle present and uninvolved; normal RGP's; single 3cm left lateral wall tumor; no other tumors 05/10/2022 - TURBT, b/l RGP, Intravesical Gemcitabine -- NO strictures in urethra; 1 cm papillary tumor at the right bladder neck, and two 5mm tumors on the posterior bladder wall -PERTINENT & MOST RECENT IMAGIN03/[address] AP - 3cm left lateral wall enhancing bladder mass; no hydronephrosis-MOS T RECENT CYSTOSCOPY: 04/2022 TURBT -MOST RECENT CYTOLOGY: 04/2021 - Negative -BLOOD THINNERS: 81mg ASA -SMOKING STATUS: Current, mostly marijuana INTERVAL HISTORY:08/10/2021 - Presents for surveillance cysto; no interval hematuria events. Bothered by nocturia. Reports he drinks fluids close to bedtime. Is on [id number]/7/202 2 - Presents for surveillance cysto; no interval hematuria events. Bothered by nocturia. Reports he drinks fluids close to bedtime. Is on TamsulosinUA: tr RBC, nit neg, LE neg 07/26/2022 - Patient presents in follow up for surveillance cysto after his interval TURBT, as above, 3 months ago, with LG Ta; luckily no urethral strictures at that time. Denies interval hematuriaUA: negative for blood or infection Gerard Lockett MD [address] [place] [address], [facility] [address], [place], [address], [facility] 07/26/2022 13:06:08
== END 2024-08-20 08:57 | disposition home or self-care (01) ==
PROVIDERS: PCP Family Medicine; Visit Provider Internal Medicine Pulmonary Disease
DX: R91.1 Solitary pulmonary nodule (principal)
CPT/HCPCS: 71250

== ENCOUNTER 2024-09-17 12:52 | Outpatient (CLI) | payer MEDICARE, MEDICAID, SELFPAY ==
--- OUTSIDE RECORDS SUMMARY | 2024-09-17 13:05 | XMS_ITS | Referral Summary ---
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 Depression 12/10/2015 Overview [...] on file Legal Sex Male 11:20 AM EPIDEMIOLOGIST Gender Identity Not on file Sexual Orientation Not on file Last Filed Vital Signs Vital Sign Reading Time Taken Comments Blood Pressure 132/60 06/04/2024 9:24 AM EPIDEMIOLOGIST Pulse 91 06/04/2024 9:24 AM EPIDEMIOLOGIST Temperature 36.7 C (98 F) 11/09/2014 10:01 AM CDT Respiratory Rate 12 12/06/2016 9:39 AM CDT Oxygen Saturation 99% 06/04/2024 9:24 AM EPIDEMIOLOGIST Inhaled Oxygen Concentration - - Weight 82.1 kg (181 lb) 06/04/2024 9:24 AM EPIDEMIOLOGIST Height 172.7 cm (5' 8 ) 06/04/2024 9:24 AM EPIDEMIOLOGIST Body Mass Index 27.52 06/04/2024 9:24 AM EPIDEMIOLOGIST Plan of Treatment Not on file Insurance MEDICARE [facility] Address: [address] [place] [phone] [facility] MEDICARE [facility] Address: [address] [place] [phone] [employer] MEDICARE [facility] Address: [address] [address] [place] [address] Care Teams Brusher Operator Relationship Specialty Start Date End Date Delvis Hernández MD PCP - General 12/10/15
--- OUTSIDE RECORDS SUMMARY | 2024-09-17 13:05 | XMS_ITS | Data Portability ---
Author Organization [facility], Main Office Address [address] [place] [address] Assessment No assessment recorded. Plan of Treatment Reminders Order Date Submit Date Provider Last Modified By Organization Details Last Modified Time Details Appointments None recorded. Lab urinalysis, dipstick 2022 023 [email or web address] [facility], [address] [place], [place] [address], [place], [address], 3 13:05:45 Referral None recorded. Procedures None [...] negative destiny/ l) Negati ve Not Available [facility] [address] [place], [address], 08/10/2021 10:47:07 08/11/19 22 08/10/2021 urina lysis , dipst ick Nitrite (reference rage: negative mg/dl) negati ve Not Available [facility] [address], [address], [address], 08/10/2021 10:47:07 08/11/19 22 08/10/2021 urina lysis , dipst ick Urobilinogen (reference range: 0.2-1 mg/dl) 0.2 Not Available [address], [address], [address], 08/10/2021 10:47:07 08/11/19 22 08/10/2021 urina lysis , dipst ick Protein (reference range: negative mg/dl) Negati ve Not Available [address], [address], 08/10/2021 10:47:07 08/11/19 22 08/10/2021 urina lysis , dipst ick pH (reference range: 5-7) 6.5 Not Available [address], [address], 08/10/2021 10:47:07 08/11/19 22 08/10/2021 urina lysis , dipst ick Blood (reference range: negative Bulmaro/ l) Non-He molyze d: Trace Not Available [address], [address], 08/10/2021 10:47:07 08/11/19 22 08/10/2021 urina lysis , dipst ick Specific [place] (reference range: 1.005-1.030) 1.020 Not Available [address], [address], 08/10/2021 10:47:07 08/11/19 22 08/10/2021 urina lysis , dipst ick Ketone (reference range: negative mg/dl) Negati ve Not Available [facility] [address], [address] , [place], [address], 08/10/2021 10:47:07 08/11/19 22 08/10/2021 urina lysis , dipst ick Bilirubin (reference range: negative mg/dl) Negati ve Not Available [address], [address], 08/10/2021 10:47:07 08/11/19 22 08/10/2021 urina lysis , dipst ick Glucose (reference range: negative mg/dl) Negati ve Not Available [address], [address], 08/10/2021 10:47:07 08/11/19 22 08/10/2021 urina lysis , dipst ick Appearance Clear Not Available [address], [address], 08/10/2021 10:47:07 08/11/19 22 08/10/2021 urina lysis , dipst ick Color Yellow Not Available [address], [address], 08/10/2021 10:47:07 04/20/20 22 04/20/2022 urina lysis , dipst ick Leukocytes (reference range: negative destiny/ l) Negati ve Not Available [address], [address], 04/18/2022 21:31:20 04/20/20 22 04/20/2022 urina lysis , dipst ick Urobilinogen (reference range: 0.2-1 mg/dl) 0.2 Not Available [address], [address], 04/18/2022 21:31:20 04/20/20 22 04/20/2022 urina lysis , dipst ick Nitrite (reference rage: negative mg/dl) negati ve Not Available [address], [address], 04/18/2022 21:31:20 04/20/20 22 04/20/2022 urina lysis , dipst ick Protein (reference range: negative mg/dl) Negati ve Not Available [address], [address], 04/18/2022 21:31:20 04/20/20 22 04/20/2022 urina lysis , dipst ick pH (reference range: 5-7) 5.5 Not Available [address], [address], 04/18/2022 21:31:20 04/20/20 22 04/20/2022 urina lysis , dipst ick Blood (reference range: negative Bulmaro/ l) Small Not Available [address], [address], 04/18/2022 21:31:20 04/20/20 22 04/20/2022 urina lysis , dipst ick Specific [place] (reference range: 1.005-1.030) 1.025 Not Available [address], [address], 04/18/2022 21:31:20 04/20/20 22 04/20/2022 urina lysis , dipst ick Ketone (reference range: negative mg/dl) Negati ve Not Available [address], [address], 04/18/2022 21:31:20 04/20/20 22 04/20/2022 urina lysis , dipst ick Bilirubin (reference range: negative mg/dl) Negati ve Not Available [address], [address], 04/18/2022 21:31:20 04/20/20 22 04/20/2022 urina lysis , dipst ick Glucose (reference range: negative mg/dl) Negati ve Not Available [address], [address], 04/18/2022 21:31:20 04/20/20 22 04/20/2022 urina lysis , dipst ick Appearance Clear Not Available [address], [address], 04/18/2022 21:31:20 04/20/20 22 04/20/2022 urina lysis , dipst ick Color Yellow Not Available [address], [address], 04/18/2022 21:31:20 07/27/19 23 07/26/2022 urina lysis , dipst ick Leukocytes (reference range: negative destiny/ l) Negati ve Not Available [place] [address], [place], [address], 07/26/2022 12:54:57 07/27/19 23 07/26/2022 urina lysis , dipst ick Nitrite (reference rage: negative mg/dl) negati ve Not Available [facility] [address] [place] [address] [address], [place], [address], 07/26/2022 12:54:57 07/27/19 23 07/26/2022 urina lysis , dipst ick Urobilinogen (reference range: 0.2-1 mg/dl) 0.2 Not Available [facility] [address], [place], [address], 07/26/2022 12:54:57 07/27/19 23 07/26/2022 urina lysis , dipst ick Protein (reference range: negative mg/dl) Negati ve Not Available [facility] [address] [facility] [address], [place], [address], 07/26/2022 12:54:57 07/27/19 23 07/26/2022 urina lysis , dipst ick pH (reference range: 5-7) 6.0 Not Available [facility] [address] [facility] [address], [place], [address], 07/26/2022 12:54:57 07/27/19 23 07/26/2022 urina lysis , dipst ick Blood (reference range: negative Bulmaro/ l) Negati ve Not Available [facility] [address], [place], [address], 07/26/2022 12:54:57 07/27/19 23 07/26/2022 urina lysis , dipst ick Specific [place] (reference range: 1.005-1.030) 1.025 Not Available s _[facility] [address], [place], [address], 07/26/2022 12:54:57 07/27/19 23 07/26/2022 urina lysis , dipst ick Ketone (reference range: negative mg/dl) Negati ve Not Available [facility] [address], [place], [address], 07/26/2022 12:54:57 07/27/19 23 07/26/2022 urina lysis , dipst ick Bilirubin (reference range: negative mg/dl) Negati ve Not Available [facility] [address], [place], [address], 07/26/2022 12:54:57 07/27/19 23 07/26/2022 urina lysis , dipst ick Glucose (reference range: negative mg/dl) Negati ve Not Available [facility] [address] [facility] [address], [place], [address], 07/26/2022 12:54:57 05/10/20 21 05/04/2021 XR, cysto ureth rogra m, retro grade No observ ation record ed. [id number] Not Available 07/13/2022 00:28:29 Result Notes None recorded. Problems Name Problem SNOMED Code Status Onset Date Resolution Date Notes Provider Name and Address Organization Details Recorded Time Nocturia 099728711 Active 022 Not Available [facility] 3 00:26:54 Malignant neoplasm of lateral wall of urinary bladder 539263264 Active 022 Not Available [facility] 3 00:26:54 Urethral stricture 98809774 Active 023 Gerard Lockett MD [address], [address], [place], [address] , [facility] 09:16:45 Problem Notes None recorded. Procedures Surgical History Date Name Laterality Status Provider Name and Address Organization Details Recorded Time 07/27/19 Cystoscopy (male) completed Gerard Lockett MD [address] [facility], [address], [place], [address], [facility] 07/26/2022 13:04:27 Appendectomy completed Not Available [facility] 07/13/2022 00:25:57 Neck Surgeries completed Not Available [facility] 07/13/2022 00:25:57 Imaging Results Imaging Date Name Status LastModified by Organiz ation Details LastModified Time 05/04/2021 XR, cystourethrogra m, retrograde completed [id number] Information not available 07/13/2022 00:28:29 Procedure Notes [...] % 99 % 94 /min 98.2 [degF] 08410.2 6 g 157 mm[Hg] 81 mm[Hg] Not Available [facility] 3 00:26:33 Date Recorded Body mass index (BMI) Body height Oxygen saturation Oxygen saturation in Arterial blood by Pulse oximetry Heart rate Body temperature Body weight Provider Name and Address Organization Details Last Updated DateTime 2 26.6 kg/m2 172.72 cm 99 % 99 % 88 /min 98.4 [degF] 09273.6 6 g Not Available [facility] 3 00:26:34 Date Recorded Body height Provider Name an d Address Organization Details Last Updated DateTime 08/10/2021 172.72 cm Not Available [facility] 3 00:26:33 Date Recorded Body height Provider Name an d Address Organization Details Last Updated DateTime 05/12/2022 172.72 cm Not Available [facility] 00:26:33 Date Recorded Body height Provider Name an d Address Organization Details Last Updated DateTime 07/26/2022 172.72 cm Ivette Concepcion [place] [facility] [place] [employer] 07/26/2022 12:31:46 Date Recorded Oxygen saturation Oxygen saturation in Arterial blood by Pulse oximetry Body temperature Heart rate Provider Name and Address Organization Details Last Updated DateTime 07/26/2022 97 % 97 % 98.4 [degF] 67 /min GIANFRANCO John [facility] 12:54:29 Social History None recorded. Functional Status None recorded. Mental Status None recorded. Family History Relationship Description Onset Age of this Age Resolved Age Notes LastModified by Organization Details LastModified Time Brother Diabetes mellitus [id number] Not available 07/13/2022 00:26:00 Brother Malignant neoplasm of prostate [id number] Not available 07/13/2022 00:26:00 Sister Diabetes mellitus [id number] Not available 07/13/2022 00:26:00 Medical History Condition Response BLINDNESS N CYSTITIS N RHEUMATIC FEVER N BLADDER PROBLEMS N KIDNEY STONES N Enlarged Prostate N MRSA N SLEEP APNEA N INFECTIOUS DISEASE N HEART ARRHYTHMIA N LUNG DISEASE/DISORDER N PROSTATE N INSOMNIA N HISTORY OF DRUG ABUSE N COPD N RADIATION / CHEMOTHERAPY N HIGH CHOLESTEROL / HYPERLIPIDEMIA N HYPERTHYROIDISM N UTI N BLOOD DISEASES N EDEMA N HYPOTHYROIDISM N SHINGLES N BOWEL PROBLEMS N DEPRESSION (INCLUDING POST ) N BACK / NECK PROBLEMS N HAVE YOU BEEN HOSPITALIZED OR SEEN IN [facility] IN THE PAST YEAR ? N STROKE/TIA N THYROID DISEASE N BENIGN PROSTATIC HYPERPLASIA N DIALYSIS N OBESITY N GERD/NAUSEA N ANEURYSM N OSTEOPOROSIS N URINARY/BLADDER/KIDNEY PROBLEMS N Increased Urination N CORONARY ARTERY DISEASE (CAD) N ARTHRITIS Y USE OF BLOOD THINNERS N NO SIGNIFICANT PAST MEDICAL HISTORY N DIABETES, TYPE N EMPHYSEMA N GASTROINTESTINAL DISORDER N PARKINSON N GASTROINTESTINAL BLEEDING N BLOOD CLOTS N Difficulty Urinating N ASTHMA N HEPATITIS / LIVER DISEASE N CATARACTS N GOUT N SLEEP DISORDER N ALZHEIMER'S DISEASE N ERECTILE DYSFUNCTION N HERPES N HEADACHES/MIGRAINES N SEIZURES/EPILEPSY N GI PROBLEMS N Low Testosterone N HEART MURMUR Y PACEMAKER N DIZZINESS N HEART DISEASE/HEART PROBLEMS N AIDS/HIV N KIDNEY DISEASE N MULTIPLE SCLEROSIS N LIVER DISEASE N MALE HYPOGONADISM N HYPERTENSION N CANCER: SPECIFY N TOURETTE'S N BLOOD TRANSFUSION N ANESTHESIA COMPLICATIONS N ANEMIA/BLOOD DISORDER N ATRIAL FIBRILLATION N AUTOIMMUNE DISEASE N TUBERCULOSIS N GLAUCOMA N Past Encounters Encounter ID Performer Location Encounter Start Date Encounter Closed Date Diagnosis/Indication Diagnosis SNOMED-CT Code Diagnosis ICD10 Code Diagnosis Note [id number] MD BISI Healy[facility] [place] [id number] 04/29/2021 00:00:00 04/30/2021 07:33:37 [id number] MD LYNDA Taylor [place] [address] 05/11/2021 00:00:00 05/11/2021 13:30:34 [id number] MD LYNDA Taylor [place] [address] 08/10/2021 00:00:00 08/10/2021 13:22:49 [id number] MD LYNDA Taylor [place] [id number] 04/19/2022 00:00:00 04/19/2022 11:43:24 [id number] MD BISI [facility] [place] [id number] 05/12/2022 00:00:00 05/22/2022 13:54:16 [id number] MD BISI Taylor_[facility] [address] [address] 07/26/2022 12:17:14 07/26/2022 13:10:53 Urethral stricture 89221062 N35.919 :Fossa noviculari s narrowing requiring dilation for resectosco pe to pass Will observe for now Nocturia 250258607 R35.1 :I counseled the patient on behavioral [...] neoplasm of lateral wall of urinary bladder 592119850 C67.2 :03/[address] [place] [address] AP - 3cm left lateral wall [...] Name 07/26/2022 1 [place] Palmer Landry [id number] Palmer Landry Sr 07/26/2022 2 [place] Palmer Landry [id number] Palmer Landry Notes Date Note Type Note [...] drinks fluids close to bedtime. Is on Xzraveznhv81/7/202 2 - Presents for surveillance cysto; no [...] for blood or infection Gerard Lockett MD [address] [facility], [facility] [address], [place], [address], [place] [facility] 07/26/2022 13:06:08
--- OUTSIDE RECORDS SUMMARY | 2024-09-17 13:05 | XMS_ITS | Clinical Summary ---
Author Organization [facility] [address] Address [address] [place] [address] Care Team Providers Care Drop Tester Name Role Phone Delvis Hernández MD Primary Care Provider [phone] Allergies No known active allergies Medications aspirin [...] artery disease) Coronary artery disease invo lving [place] coronary artery of [place] heart without angina pectoris 12/10/2015 Overview (08/17/2016): Coronary artery disease involving [place] coronary artery of [place] heart without angina pectoris Depression 12/10/2015 Overview [...] Date Dyslipidemia 12/10/2015 03/28/2021 Overview (08/17/2016): Dyslipidemia Medical History Medical History Date Comments Aortic [...] on file Legal Sex Male 11:20 AM FIRER TUNNEL KILN Gender Identity Not on file Sexual Orientation Not on file Obstetrics History Last Filed Vital Signs Vital Sign Reading Time Taken Comments Blood Pressure 132/60 06/04/2024 9:24 AM FIRER TUNNEL KILN Pulse 91 06/04/2024 9:24 AM FIRER TUNNEL KILN Temperature 36.7 C (98 F) 11/09/2014 10:01 AM CDT Respiratory Rate 12 12/06/2016 9:39 AM CDT Oxygen Saturation 99% 06/04/2024 9:24 AM FIRER TUNNEL KILN Inhaled Oxygen Concentration - - Weight 82.1 kg (181 lb) 06/04/2024 9:24 AM FIRER TUNNEL KILN Height 172.7 cm (5' 8 ) 06/04/2024 9:24 AM FIRER TUNNEL KILN Body Mass Index 27.52 06/04/2024 9:24 AM FIRER TUNNEL KILN Plan of Treatment Health Maintenance Due Date [...] Completed 04/23/2024, , 03/27/2022, Additional history exists Insurance MEDICARE [facility] MEDICARE IDMO [facility] MEDICARE Care Teams Drop Tester Relationship Specialty Start Date End Date Delvis Hernández MD PCP - General 12/10/15
--- OUTSIDE RECORDS SUMMARY | 2024-09-17 13:05 | XMS_ITS | Clinical Summary ---
Author Organization [facility] Address [facility] [place] [address] Care Team Providers Care Blocker Metal Base Name Role Phone Delvis Hernández MD Primary Care Provider [phone] Juan Em MD Unavailable [phone] Allergies No known active allergies Medications [...] 03/27/2022, 12/01/2021, Additional history exists Pneumococcal Vaccine: 50+ Years Completed 04/09/2015, 05/27/2012 RSV Immunization or [...] this topic Insurance MEDICARE MEDICAID Care Teams Blocker Metal Base Relationship Specialty Start Date End Date Delvis Hernández MD [address] [address] PCP - General FAMILY PRACTICE 08/03/23 Juan Em MD [address] [facility] [address] [place] [address] HEMATOLOGY/ONCOLOGY 08/03/23
--- OUTSIDE RECORDS SUMMARY | 2024-09-17 13:05 | XMS_ITS | CONTINUITY OF CARE DOCUMENT ---
Author Name yousuf to Address Unknown Organization [facility] Address [address] [facility] [address] [place] [address] Phone [phone] Care Team Providers Care Wastewater Supervisor Name Role Phone Cristobal Mcguire MD Unavailable ADDY NOGUEIRA, CHANTELLE F Unavailable ADDY NOGUEIRA, CHANTELLE F Unavailable PROBLEMS Condition Status Date Provider Notes Preoperative cardiovascular evaluation active Cristobal Mcguire MD Bladder cancer active Cristobal Mcguire MD Hyperlipidemia active Cristobal Mcguire MD Hx of [place] active Cristobal Mcguire MD Hx of abdominal aortic aneurysm (AAA) active 2 Cristobal Mcguire MD Cardiology examination active Cristobal Mcguire MD ENCOUNTERS Date Type Provider Location Encounter Diag nosis - In-person encounter Office Visit Cristobal Mcguire MD [facility] Bladder cancerPreoperative cardiovascular evaluation - In-person encounter Office Visit Cristobal Mcguire MD [facility] Cardiology examinationHx of abdominal aortic aneurysm (AAA)Hx of MIHyperlipidemia VITAL SIGNS Date Observation Value Provider Body Mass Index (Ratio) 26.00 kg/m2 Devon Mcguire MD blood pressure, diastolic 65 mm[Hg] Leilani clayLogmelquiades blood pressure, systolic 135 mm[Hg] Rossi [facility] blood pressure, cuff size regular Ja blood pressure, diastolic 65 mm[Hg] Michael blood pressure, systolic 135 mm[Hg] Marty red pulse rate 75 /min Nick oxygen saturation, oximetry 98 % respiratory rate E&M 14 /min weight E&M 171 [lb_av] Nick height E&M 68 [in_i] Nick Body Mass Index (Ratio) 24.48 kg/m2 Devon Mcguire MD blood pressure, diastolic 75 mm[Hg] [facility] pressure, systolic 135 mm[Hg] Rossi [facility] respiratory rate E&M 16 /min Sherrie crawford [...] Payer name Policy type / Coverage type [facility] Medicaid 0 [id number] [place] MED[place] Medicare [id number] ADVANCE DIRECTIVES Name Date DISCUSSED - NO DECISION MADE TREATMENT PLAN Date Name Performer [id number],C,C ontinue atorva H is updated medication list [...]
--- OUTSIDE RECORDS SUMMARY | 2024-09-17 13:05 | XMS_ITS | Clinical Summary ---
Author Organization [facility] Address [address] [facility] [address] Care Team Providers Care Cycle Specialist Name Role Phone Delvis Hernández MD Primary Care Provider [phone] Allergies No known active allergies Medications tamsulosin (FLOMAX) 0.4 mg capsule Take 0.4 mg by mouth. 0 Active pravastatin (PRAVACHOL) 10 mg tablet Take 10 mg by mouth daily. 1 Active meloxicam (MOBIC) 15 mg tablet Take 15 mg by mouth daily. 2 Active tiZANidine (ZANAFLEX) 4 mg Tablet Take 4 mg by mouth every 8 hours as needed. 4 Active aspirin (ECOTRIN EC) 81 mg Tablet, Delayed Release (E.C.) Take 81 mg by mouth daily. Active traZODone (DESYREL) 50 mg tablet Take 50 mg by mouth daily at bedtime. 4 Active losartan (COZAAR) 25 mg tablet Take 25 mg by mouth daily. 5 Active metoprolol succinate (TOPROL XL) 25 mg Extended Release 24 hour tablet Take 25 mg by mouth daily. 5 Active ferrous sulfate (IRON SULFATE) 220 mg (44 mg iron)/5 mL Elixir elixir TAKE 6.8ML BY MOUTH TWICE DAILY 408 mL 1 5 Active ferrous sulfate (FEOSOL) 300 mg (60 mg iron)/5 mL solution Take 5 mL (300 mg) by mouth 2 times daily. 300 mL 3 03/29/09/04/19 25 Discontinued Active Problems Problem Noted Date Diagnosed Date Iron deficiency anemia 09/22/2020 Encounters Date Type Department Care Team Description 09/02/2024 Refill [facility] On[facility] and H[facility]ology - [place] [address] [place] [address] Juan Em MD 08/04/2024 Orders Only [facility] - [place] [address] [place] [address] Juan Em MD 08/01/2024 10:45 AM CDT Office Visit [facility] - [place] [address] [place] [address] Juan Em MD Chronic anemia (Primary Dx) 08/01/2024 Orders Only [facility]ology - [place] [address] [place] [address] Juan Em MD 07/30/2024 External Device Data [...] Description 10/10/2024 10:00 AM CDT Office Visit [facility] On[facility] and Hematology - [place] [address] [facility] [address] [place] [address] Juan Em MD [address] [facility] [address] [place] [address] Health Maintenance Due Date Last Done Comments DTAP/TDAP/TD VACCINES (1 - Tdap) 08/05/1964 PNEUMOCOCCAL VACCINE 50+ YEA RS (1 [...] WITH DIFFERENTIAL (07/31/2024 12:42 PM CDT) Blood us Juan Em MD HEMATOLOGY ORDERABLES Final Res ult * BASIC METABOLIC PANEL (07/31/2024 11:23 AM CDT) Blood Juan Em MD CHEMISTRY ORDERABLES Final Resu lt from Last 3 Months Insurance MEDICAID [place] MEDICARE PART A AND B Care Teams Cycle Specialist Relationship Specialty Start Date End Date Delvis Hernández MD [address] [place] [address] PCP - General Family Practice 09/22/20
--- NOTE | 2024-09-17 13:11 | ECHO_ITS ---
Patient Info Name: Palmer Landry Age: 79 years : 1945 Gender: Male Ht: 68 in Wt: 180 lbs BSA: 2.00 m2 HR: 78 bpm BP: 126 / 70 mmHg Heart Rhythm: Sinus Rhythm Technical Quality: Good Exam Date: 09/17/2024 1:17 PM Exam Location: Echo Lab Patient Status: Outpatient Admit Date: 09/17/2024 Staff Ordering Physician: Eyal Evans DO Asbestos Coverer: Virgen Vines RDCS Attending Provider: Eyal Evans DO Referring Physician: Nathan COX; Exam Type: CA echo doppler color flow Study Info Indications - Nonreheumatic aortic valve stenosis Complete two-dimensional, color flow and Doppler transthoracic echocardiogram is performed. Summary 1. Complete two-dimensional, color flow and Doppler transthoracic echocardiogram is performed. 2. Left ventricular chamber dimension is moderately enlarged. 3. Left ventricular systolic function is normal, estimated at 60-65%. 4. The left ventricular diastolic function is grade I diastolic dysfunction. 5. E/e' 15 is elevated. 6. Left atrial chamber dimension is moderately enlarged. 7. Right atrial chamber dimension is mildly enlarged. 8. There is moderate aortic valve sclerosis. 9. There is moderate aortic valve stenosis with a peak velocity of 380 cm/s, mean gradient of 30 mmHg, and aortic valve area of 1.3 cm2. 10. There is mild aortic valve regurgitation. 11. The mitral valve has mildly calcified annulus. 12. There is mild to moderate mitral valve regurgitation. 13. There is mild tricuspid valve regurgitation. 14. Mild pulmonary hypertension, estimated pulmonary arterial systolic pressure is 45 mmHg. Left Ventricle E/e' 15 is elevated. Left ventricular chamber dimension is moderately enlarged. Left ventricular systolic function is normal, estimated at 60-65%. The left ventricular diastolic function is grade I diastolic dysfunction. Right Ventricle Right ventricular systolic function is normal and with normal TAPSE 3.2 cm. Right ventricular chamber dimension is normal. Left Atria Left atrial chamber dimension is moderately enlarged. Right Atria Right atrial chamber dimension is mildly enlarged. Aortic Valve The aortic valve is trileaflet. There is moderate aortic valve sclerosis. There is moderate aortic valve stenosis with a peak velocity of 380 cm/s, mean gradient of 30 mmHg, and aortic valve area of 1.3 cm2. There is mild aortic valve regurgitation. Pulmonic Valve There is no pulmonic regurgitation. Mitral Valve The mitral valve has mildly calcified annulus. There is no mitral valve stenosis. There is mild to moderate mitral valve regurgitation. Tricuspid Valve There is mild tricuspid valve regurgitation. Mild pulmonary hypertension, estimated pulmonary arterial systolic pressure is 45 mmHg. Pericardium/Pleural There is no pericardial effusion. Inferior Vena Cava Normal inferior vena cava with >50% collapse upon inspiration consistent with normal right atrial pressure, 5 mmHg. Aorta The aortic root size at the sinus of Valsalva is normal. Left Ventricular Outflow Tract Name Value Normal LVOT 2D LVOT Diameter 2.0 cm LVOT Doppler LVOT Peak Gradient 10 mmHg LVOT Mean Gradient 5 mmHg LVOT VTI 33 cm LVOT VTI/AV VTI Ratio 0.4 LVOT Stroke Volume 105 ml LVOT CO 8.3 l/min LVOT CI 4.2 l/min/m2 Pulmonic Valve Name Value Normal RVOT Doppler RVOT Peak Gradient 2 mmHg PV Doppler PV Peak Gradient 7 mmHg Mitral Valve Name Value Normal MV Doppler MV Decel Brooks 443 cm/s2 MV PHT 67 ms MV Area (PHT) 3.3 cm2 4.0-5.0 MV Diastolic Function MV E Peak Velocity 102 cm/s MV A Peak Velocity 111 cm/s MV E/A 0.9 MV Decel Time 231 ms MV Annular TDI MV E/e' (Septal) 21.4 <=8.0 MV E/e' (Lateral) 12.2 <=8.0 MV E/e' (Average) 16.8 Tricuspid Valve Name Value Normal TV Regurgitation Doppler TR Peak Velocity 317 cm/s TR Peak Gradient 40 mmHg Estimated PAP/RSVP RA Pressure 5 mmHg <=5 PA Systolic Pressure 45 mmHg <36 RV Systolic Pressure 45 mmHg <36 Aortic Valve Name Value Normal AV Doppler AV Peak Velocity 380 cm/s AV Peak Gradient 58 mmHg AV Mean Gradient 30 mmHg AV VTI 83 cm AV Area (Cont Eq VTI) 1.3 cm2 >=3.0 AV Area (Cont Eq Seven) 1.3 cm2 AV Regurgitation 2D LVOT Area 3.2 cm2 AV Regurgitation Doppler AR Decel Time 936 ms AR Decel Brooks 358 cm/s2 AR PHT 272 ms Ventricles Name Value Normal LV Dimensions 2D/MM IVS Diastolic Thickness (2D) 0.6 cm 0.6-1.0 LVID Diastole (2D) 5.1 cm 4.2-5.8 LVIW Diastolic Thickness (2D) 0.9 cm 0.6-1.0 LVID Systole (2D) 3.3 cm 2.5-4.0 LVOT Diameter 2.0 cm LV Mass (2D Cubed) 133.83 g 88.00-224.00 LV Mass Index (2D Cubed) 67 g/m2 49-115 Relative Wall Thickness (2D) 0.36 LV Fractional Shortening/Ejection Fraction 2D/MM LV Fractional Shortening (2D) 35 % 25-43 LV EF (2D Teicholz) 64 % 52-72 LV Diastolic Volume (4C MOD) 202 ml LV EF (4C MOD) 60 % LV Diastolic Volume (2C MOD) 198 ml LV EF (2C MOD) 65 % LV Diastolic Volume (BP MOD) 204 ml 62-150 LV Diastolic Volume Index (BP MOD) 102 ml/m2 34-74 LV Systolic Volume (BP MOD) 78 ml 21-61 LV Systolic Volume Index (BP MOD) 39 ml/m2 11-31 LV EF (BP MOD) 62 % 52-72 LV Diastolic Length (4C) 10.0 cm LV Systolic Length (4C) 8.5 cm LV Stroke Volume (4C MOD) 122 ml Atria Name Value Normal LA Dimensions LA Volume (4C A-L) 68 ml LA Volume (BP A-L) 89 ml RA Dimensions RA Area (4C) 20.9 cm2 <=18.0 Report Signatures
== END 2024-09-17 12:53 | disposition home or self-care (01) ==
PROVIDERS: PCP Family Medicine; Visit Provider Internal Medicine Cardiovascular Disease
DX: R93.1 Abnormal findings on diagnostic imaging of heart and coronary circulation (principal); I35.0 Nonrheumatic aortic (valve) stenosis
CPT/HCPCS: 93306

== ENCOUNTER 2024-09-25 10:15 | Outpatient (CLI) | payer MEDICARE, MEDICAID, SELFPAY ==
--- NOTE | ~2024-09-25 | XR_ITS ---
AP view of the pelvis and AP and lateral views of the bilateral hips Clinical history: Pain Findings: No acute fracture or dislocation is seen. Osseous alignment is anatomic. There is minimal r ight hip joint degenerative change. Left hip joint intact. Soft tissues are unremarkable. Impression: Minimal degenerative change of the right hip joint. Reviewed, dictated and finalized at location . Impression: Minimal degenerative change of the right hip joint.
--- NOTE | ~2024-09-25 | XR_ITS ---
Lumbosacral Spine: AP, oblique, and lateral views, with neutral, flexion, and extension positioning. Clinical History: Pain Findings: There is 9 mm anterolisthesis of L4 over L5. No definite instability on flexion or extensio n. There is severe facet arthropathy from L4 through S1. There are mild degenerative disc changes. Th e sacroiliac joints are normally outlined. Impression: 9 mm anterolisthesis of L4 over L5 without evidence for instability. Facet arthropathy, as above. Reviewed, dictated and finalized at location M. Impression: 9 mm anterolisthesis of L4 over L5 without evidence for instability. Facet arthropathy, as above.
--- OUTSIDE RECORDS SUMMARY | 2024-09-25 10:23 | XMS_ITS | Clinical Summary ---
Author Organization [facility] [address] Address [address] [place] [address] Care Team Providers Care Orthopedics Teacher Name Role Phone Delvis Hernández MD Primary Care Provider [phone] Allergies No known active allergies Medications aspirin [...] artery disease) Coronary artery disease invo lving [place] coronary artery of [place] heart without angina pectoris 12/10/2015 Overview (08/17/2016): Coronary artery disease involving [place] coronary artery of [place] heart without angina pectoris Depression 12/10/2015 Overview [...] on file Legal Sex Male 11:20 AM PLANER HAND Gender Identity Not on file Sexual Orientation Not on file Obstetrics History Last Filed Vital Signs Vital Sign Reading Time Taken Comments Blood Pressure 132/60 06/04/2024 9:24 AM PLANER HAND Pulse 91 06/04/2024 9:24 AM PLANER HAND Temperature 36.7 C (98 F) 11/09/2014 10:01 AM CDT Respiratory Rate 12 12/06/2016 9:39 AM CDT Oxygen Saturation 99% 06/04/2024 9:24 AM PLANER HAND Inhaled Oxygen Concentration - - Weight 82.1 kg (181 lb) 06/04/2024 9:24 AM PLANER HAND Height 172.7 cm (5' 8 ) 06/04/2024 9:24 AM PLANER HAND Body Mass Index 27.52 06/04/2024 9:24 AM PLANER HAND Plan of Treatment Health Maintenance Due Date [...] , 03/27/2022, Additional history exists Insurance MEDICARE [facility] MEDICARE IDVT [facility] MEDICARE Care Teams Orthopedics Teacher Relationship Specialty Start Date End Date Delvis Hernández MD PCP - General 12/10/15
--- OUTSIDE RECORDS SUMMARY | 2024-09-25 10:23 | XMS_ITS | Clinical Summary ---
Author Organization [facility] Address [address] [facility] [place] [address] Care Team Providers Care Laborer Driver Name Role Phone Delvis Hernández MD Primary Care Provider [phone] Allergies No known active allergies Medications tamsulosin [...] Type Department Care Team Description 09/02/2024 Refill [facility] Oncology and Hematology - [place] [address] [place] [address] Juan Em MD 08/04/2024 Orders Only [facility] Oncology and Hematology - [place] [address] [place] [address] Juan Em MD 08/01/2024 10:45 AM CDT Office Visit [facility] Oncology and Hematology - [place] [address] [place] [address] Juan Em MD Chronic anemia (Primary Dx) 08/01/2024 Orders Only [facility] Oncology and Hematology - [place] [address] [place] [address] Juan Em MD 07/30/2024 External Device Data [...] Description 10/10/2024 10:00 AM CDT Office Visit [facility] Oncology and Hematology - [place] [address] [facility] [address] [place] [address] Juan Em MD [address] [facility] [address] [place] [address] Health Maintenance Due Date Last [...] lt from Last 3 Months Insurance MEDICAID [place] MEDICARE PART A AND B Care Teams Laborer Driver Relationship Specialty Start Date End Date Delvis Hernández MD [address] [place] [address] PCP - General Family Practice 09/22/20
--- OUTSIDE RECORDS SUMMARY | 2024-09-25 10:23 | XMS_ITS | Referral Summary ---
Author Organization [facility] [address] Address [address] [place] [address] Care Team Providers Care Driller And Broacher Name Role Phone Delvis Hernández MD Primary Care Provider [phone] Allergies No known active allergies Medications aspirin [...] artery disease) Coronary artery disease invo lving [place] coronary artery of [place] heart without angina pectoris 12/10/2015 Overview (08/17/2016): Coronary artery disease involving [place] coronary artery of [place] heart without angina pectoris Depression 12/10/2015 Overview [...] on file Legal Sex Male 11:20 AM ORE MINER Gender Identity Not on file Sexual Orientation Not on file Last Filed Vital Signs Vital Sign Reading Time Taken Comments Blood Pressure 132/60 06/04/2024 9:24 AM ORE MINER Pulse 91 06/04/2024 9:24 AM ORE MINER Temperature 36.7 C (98 F) 11/09/2014 10:01 AM CDT Respiratory Rate 12 12/06/2016 9:39 AM CDT Oxygen Saturation 99% 06/04/2024 9:24 AM ORE MINER Inhaled Oxygen Concentration - - Weight 82.1 kg (181 lb) 06/04/2024 9:24 AM ORE MINER Height 172.7 cm (5' 8 ) 06/04/2024 9:24 AM ORE MINER Body Mass Index 27.52 06/04/2024 9:24 AM ORE MINER Plan of Treatment Not on file Insurance MEDICARE [facility] MEDICARE [place] MEDICARE Care Teams Driller And Broacher Relationship Specialty Start Date End Date Delvis Hernández MD PCP - General 12/10/15
--- OUTSIDE RECORDS SUMMARY | 2024-09-25 10:23 | XMS_ITS | Clinical Summary ---
Author Organization [facility] Address [facility] [place] [address] Care Team Providers Care Repair Servicer Name Role Phone Delvis Hernández MD Primary Care Provider [phone] Juan Em MD Unavailable [phone] Allergies No known active allergies Medications [...] this topic Insurance MEDICARE MEDICAID Care Teams Repair Servicer Relationship Specialty Start Date End Date Delvis Hernández MD [address] [address] PCP - General FAMILY PRACTICE 08/03/23 Juan Em MD [address] [facility] [address] [place] [address] HEMATOLOGY/ONCOLOGY 08/03/23
== END 2024-09-25 10:16 | disposition home or self-care (01) ==
PROVIDERS: PCP Family Medicine; Visit Provider Nurse Practitioner Family
DX: M43.16 Spondylolisthesis, lumbar region (principal); M47.816 Spondylosis without myelopathy or radiculopathy, lumbar region; M47.817 Spondylosis without myelopathy or radiculopathy, lumbosacral region; M16.11 Unilateral primary osteoarthritis, right hip
CPT/HCPCS: 72114; 73521

== ENCOUNTER 2024-10-10 07:41 | Outpatient (RCR) | payer MEDICARE, MEDICAID, SELFPAY ==
[2024-10-10] VITALS (9 sets, daily range): BP systolic 104–127; BP diastolic 43–59; PULSE 72–82; RESP 14–16; TEMP 36.3–36.7; O2SAT 99–100
[2024-10-10] MEDS: ACETAMINOPHEN 325 MG TABLET 650 MG PO (08:07)
[2024-10-10] MEDS: diphenhydrAMINE HCl CAP 25 MG CAPSULE PO (08:07)
[2024-10-10] MEDS: SODIUM CHLORIDE 0.9% IV 250 ML 30 ML IV CONT (08:08)
[2024-10-10] MEDS: FUROSEMIDE INJ 40 MG/4 ML VIAL 20 MG IV PUSH (10:05)
== END 2025-01-08 23:59 | disposition home or self-care (01) ==
LOC: ANHCPCTRAN 07:41
PROVIDERS: PCP Family Medicine; Visit Provider Internal Medicine Hematology & Oncology
DX: D64.9 Anemia, unspecified (principal)
CPT/HCPCS: 36415; 36430; 82607; 82728; 82746; 83540; 83550; 85027; 86850; 86900; 86901; 86923; 96374; A9270; J1938; J7050; P9016

== ENCOUNTER 2024-10-28 02:48 | Day surgery (SDC) | payer MEDICARE, MEDICAID, SELFPAY ==
[2024-10-24 12:13] VITALS: BMI 26.8
--- OUTSIDE RECORDS SUMMARY | 2024-10-28 02:51 | XMS_ITS | Clinical Summary ---
Author Organization [facility] [address] Address [address] [place] [address] Care Team Providers Care Discharge Planner Name Role Phone Delvis Hernández MD Primary Care Provider [phone] Allergies No known active allergies Medications aspirin [...] artery disease) Coronary artery disease invo lving [place] coronary artery of [place] heart without angina pectoris 12/10/2015 Overview (08/17/2016): Coronary artery disease involving [place] coronary artery of [place] heart without angina pectoris Depression 12/10/2015 Overview [...] on file Legal Sex Male 11:20 AM COPY OPERATOR Gender Identity Not on file Sexual Orientation Not on file Obstetrics History Last Filed Vital Signs Vital Sign Reading Time Taken Comments Blood Pressure 132/60 06/04/2024 9:24 AM COPY OPERATOR Pulse 91 06/04/2024 9:24 AM COPY OPERATOR Temperature 36.7 C (98 F) 11/09/2014 10:01 AM CDT Respiratory Rate 12 12/06/2016 9:39 AM CDT Oxygen Saturation 99% 06/04/2024 9:24 AM COPY OPERATOR Inhaled Oxygen Concentration - - Weight 82.1 kg (181 lb) 06/04/2024 9:24 AM COPY OPERATOR Height 172.7 cm (5' 8) 06/04/2024 9:24 AM COPY OPERATOR Body Mass Index 27.52 06/04/2024 9:24 AM COPY OPERATOR Plan of Treatment Health Maintenance Due Date [...] , 03/27/2022, Additional history exists Insurance MEDICARE [facility] MEDICARE IDNY [facility] MEDICARE Care Teams Discharge Planner Relationship Specialty Start Date End Date Delvis Hernández MD PCP - General 12/10/15
--- OUTSIDE RECORDS SUMMARY | 2024-10-28 02:51 | XMS_ITS | Clinical Summary ---
Author Organization [facility] Kenneth Borges Address [address] [place] [address] Care Team Providers Care Hotel And Dining Room Cashier Name Role Phone Delvis Hernández MD Primary Care Provider [phone] Allergies No known active allergies Medications tamsulosin (FLOMAX) 0.4 mg capsule Take 0.4 mg by mouth. 09/26/2019 Active pravastatin (PRAVACHOL) 10 mg tablet Take 10 mg by mouth daily. 09/09/2020 Active meloxicam (MOBIC) 15 mg tablet Take 15 mg by mouth daily. 07/18/2021 Active tiZANidine (ZANAFLEX) 4 mg Tablet Take [...] 25 mg by mouth daily. 07/29/2024 Active ferrous sulfate (IRON SULFATE) 220 mg (44 mg iron)/5 mL Elixir elixir TAKE 6.8ML BY MOUTH TWICE DAILY 408 mL 1 09/03/2024 Active Active Problems Problem Noted Date Diagnosed Date Iron deficiency anemia 09/22/2020 Encounters Date Type Department Care Team Description 10/23/2024 Orders Only [facility] Oncology and Hematology - [place] [address] [place] [phone] Juan Em MD Iron deficiency anemia, unspecified iron deficiency anemia type (Primary Dx) 10/17/2024 Orders Only [facility] On[facility] and Hematology - [place] [address] [place] [phone] Juan Em MD 10/16/2024 9:30 AM CDT Office Visit [facility] Oncology and Hematology - [place] [address] [place] [phone] Juan Em MD Iron deficiency anemia, unspecified iron deficiency anemia type (Primary Dx) 10/10/2024 Orders Only [facility] Oncology and Hematology - [place] [address] [place] [address] Juan Em MD 10/10/2024 Abstract [facility] On[facility] and Hematology - [place] [address] [place] [phone] Juan Em MD 10/09/2024 Orders Only [facility] On[facility] and Hematology - [place] [address] [place] [phone] Juan Em MD Chronic anemia (Primary Dx) 10/07/2024 External Device Data STL ABSTRACTION Provider, Abstract 10/07/2024 External Device Data STL ABSTRACTION Provider, Abstract 10/01/2024 External Device Data STL ABSTRACTION Provider, Abstract 09/30/2024 External Device Data STL ABSTRACTION Provider, Abstract 09/02/2024 Refill [facility] Oncology and Hematology - [place] [address] [place] [address] Juan Em MD 08/04/2024 Orders Only [facility] Oncology and Hematology - [place] [address] [place] [address] Juan Em MD 08/01/2024 10:45 AM CDT Office Visit [facility] Oncology and Hematology - [place] [address] [place] [address] Juan Em MD Chronic anemia (Primary Dx) 08/01/2024 Orders Only [facility] Oncology and Hematology [facility] [address] [place] [address] Juan Em MD 07/30/2024 External Device Data [...] Sign Reading Time Taken Comments Blood Pressure 107/61 10/16/2024 9:18 AM CDT Pulse 77 10/16/2024 9:18 AM CDT Temperature 36.6 C (97.9 F) 10/16/2024 9:18 AM CDT Respiratory Rate 15 10/16/2024 9:18 AM CDT Oxygen Saturation 97% 10/16/2024 9:18 AM CDT Inhaled Oxygen Concentration - - Weight 79.7 kg (175 lb 9.6 oz) 10/16/2024 9:18 A M CDT Height 172.7 cm (5' 8) 10/13/2021 10:09 AM CDT Body Mass Index 26.7 10/13/2021 10:09 AM CDT Plan of Treatment Upcoming Encounters Date Type Department Care Team (Late st Contact Info) Description 12/17/2024 11:15 AM CDT Office Visit [facility] Oncology and Hematology [facility] [address] [place] [address] Juan Em MD [address] [facility] [address] [place] [address] Health Maintenance Due Date Last [...] Procedure Name Priority Date/Time Associated Diagnosis Comments IRON PANEL Routine 10/16/2024 2:07 PM CDT CBC WITH DIFFERENTIAL Routine 10/16/2024 1:28 PM CDT TYPE AND SCREEN Routine 10/09/2024 12:48 PM CDT IRON PANEL Routine 10/09/2024 12:18 PM CDT CBC WITH DIFFERENTIAL Routine 10/09/2024 11:10 AM CDT CBC WITH DIFFERENTIAL Routine 07/31/2024 12:42 PM CDT BASIC METABOLIC PANEL Routine 07/31/2024 11:23 AM CDT from Last 3 Months Results * IRON PANEL (10/16/2024 2:07 PM CDT) Only the most recent of2 resultswithin the time period is included. Blood us Juan Em MD CHEMISTRY ORDERABLES Final Resu lt * CBC WITH DIFFERENTIAL (10/16/2024 1:28 PM CDT) Only the most recent of3 resultswithin the time period is included. Blood us Juan Em MD HEMATOLOGY ORDERABLES Final Res ult * TYPE AND SCREEN (10/09/2024 12:48 PM CDT) Blood Juan Em MD BLOOD BANK ORDERABLES Final Res ult * BASIC METABOLIC PANEL (07/31/2024 11:23 AM CDT) Blood Juan Em MD CHEMISTRY ORDERABLES Final Resu lt from Last 3 Months Insurance MEDICAID [place] MEDICARE PART A AND B Care Teams Hotel And Dining Room Cashier Relationship Specialty Start Date End Date Delvis Hernández MD [address] [place] [address] PCP - General Family Practice 09/22/20
--- OUTSIDE RECORDS SUMMARY | 2024-10-28 02:51 | XMS_ITS | CONTINUITY OF CARE DOCUMENT ---
Author Name yousuf, yousuf Address Unknown Organization [facility] Address [address] [place] [address] Phone [phone] Care Team Providers Care Linotyper Name Role Phone Cristobal Mcguire MD Unavailable ADDY NOGUEIRA, CHANTELLE F Unavailable ADDY NOGUEIRA, CHANTELLE F Unavailable [phone] PROBLEMS Condition Status Date Provider Notes Cardiology examination active Cristobal Mcguire MD Hx of abdominal aortic aneurysm (AAA) active 2 Cristobal Mcguire MD Hx of [place] active Cristobal Mcguire MD Hyperlipidemia active Cristobal Mcguire MD Bladder cancer active Cristobal Mcguire MD Preoperative cardiovascular evaluation active Cristobal Mcguire MD ENCOUNTERS Date Type Provider Location Encounter Diag nosis - In-person encounter Office Visit Cristobal Mcguire MD [facility] Bladder cancerPreoperative cardiovascular evaluation - In-person encounter Office Visit Cristobal Mcguire MD [facility] Cardiology examinationHx of abdominal aortic aneurysm (AAA)Hx of MIHyperlipidemia VITAL SIGNS Date Observation Value Provider Body Mass Index (Ratio) 26.00 kg/m2 Devon Mcguire MD blood pressure, diastolic 65 mm[Hg] Leilani clayLogmelquiades blood pressure, systolic 135 mm[Hg] Rossi [facility] blood pressure, cuff size regular Ja blood pressure, diastolic 65 mm[Hg] Michael blood pressure, systolic 135 mm[Hg] Marty red pulse rate 75 /min Nick oxygen saturation, oximetry 98 % respiratory rate E&M 14 /min weight E&M 171 [lb_av] Nick height E&M 68 [in_i] Nick Body Mass Index (Ratio) 24.48 kg/m2 Devon Mcguire MD blood pressure, diastolic 75 mm[Hg] [facility]il[facility]Wilson [facility] Hospital[facility] blood pressure, systolic 135 mm[Hg] Rossi [facility] respiratory rate E&M 16 /min Sherrie crawford [...] Payer name Policy type / Coverage type Formerly [facility] Medicaid 0 [id number] [place] MEDICARE Medicare [id number] ADVANCE DIRECTIVES Name Date DISCUSSED - NO DECISION MADE TREATMENT PLAN Date Name Performer [id number],C,C ontinue atorva H is updated medication list [...]
--- OUTSIDE RECORDS SUMMARY | 2024-10-28 02:51 | XMS_ITS | Data Portability ---
Author Organization [facility] [employer], Main Office Address [address] [place] [address] Assessment No assessment recorded. Plan of Treatment Reminders Order Date Submit Date Provider Last Modified By Organization Details Last Modified Time Details Appointments None recorded. Lab urinalysis, dipstick 2022 023 [email or web address] [facility], [address] [place], [place] [address], [place], [address], 3 13:05:45 Referral None recorded. Procedures None [...] negative destiny/ l) Negati ve Not Available [facility] [address] [place], [address], 08/10/2021 10:47:07 08/11/19 22 08/10/2021 urina lysis , dipst ick Nitrite (reference rage: negative mg/dl) negati ve Not Available [facility] [address], [address], [address], 08/10/2021 10:47:07 08/11/19 22 08/10/2021 urina lysis , dipst ick Urobilinogen (reference range: 0.2-1 mg/dl) 0.2 Not Available [address], [address], [address], 08/10/2021 10:47:07 08/11/19 22 08/10/2021 urina lysis , dipst ick Protein (reference range: negative mg/dl) Negati ve Not Available [address], [address], 08/10/2021 10:47:07 08/11/19 22 08/10/2021 urina lysis , dipst ick pH (reference range: 5-7) 6.5 Not Available [address], [address], 08/10/2021 10:47:07 08/11/19 22 08/10/2021 urina lysis , dipst ick Blood (reference range: negative Bulmaro/ l) Non-He molyze d: Trace Not Available [address], [address], 08/10/2021 10:47:07 08/11/19 22 08/10/2021 urina lysis , dipst ick Specific [place] (reference range: 1.005-1.030) 1.020 Not Available [address], [address], 08/10/2021 10:47:07 08/11/19 22 08/10/2021 urina lysis , dipst ick Ketone (reference range: negative mg/dl) Negati ve Not Available [facility] [place] [address], [address] , [place], [address], 08/10/2021 10:47:07 08/11/19 22 08/10/2021 urina lysis , dipst ick Bilirubin (reference range: negative mg/dl) Negati ve Not Available [address], [address], 08/10/2021 10:47:07 08/11/19 22 08/10/2021 urina lysis , dipst ick Glucose (reference range: negative mg/dl) Negati ve Not Available [address], [address], 08/10/2021 10:47:07 08/11/19 22 08/10/2021 urina lysis , dipst ick Appearance Clear Not Available [address], [address], 08/10/2021 10:47:07 08/11/19 22 08/10/2021 urina lysis , dipst ick Color Yellow Not Available [address], [address], 08/10/2021 10:47:07 04/20/20 22 04/20/2022 urina lysis , dipst ick Leukocytes (reference range: negative destiny/ l) Negati ve Not Available [address], [address], 04/18/2022 21:31:20 04/20/20 22 04/20/2022 urina lysis , dipst ick Urobilinogen (reference range: 0.2-1 mg/dl) 0.2 Not Available [address], [address], 04/18/2022 21:31:20 04/20/20 22 04/20/2022 urina lysis , dipst ick Nitrite (reference rage: negative mg/dl) negati ve Not Available [address], [address], 04/18/2022 21:31:20 04/20/20 22 04/20/2022 urina lysis , dipst ick Protein (reference range: negative mg/dl) Negati ve Not Available [address], [address], 04/18/2022 21:31:20 04/20/20 22 04/20/2022 urina lysis , dipst ick pH (reference range: 5-7) 5.5 Not Available [address], [address], 04/18/2022 21:31:20 04/20/20 22 04/20/2022 urina lysis , dipst ick Blood (reference range: negative Bulmaro/ l) Small Not Available [address], [address], 04/18/2022 21:31:20 04/20/20 22 04/20/2022 urina lysis , dipst ick Specific [place] (reference range: 1.005-1.030) 1.025 Not Available [address], [address], 04/18/2022 21:31:20 04/20/20 22 04/20/2022 urina lysis , dipst ick Ketone (reference range: negative mg/dl) Negati ve Not Available [address], [address], 04/18/2022 21:31:20 04/20/20 22 04/20/2022 urina lysis , dipst ick Bilirubin (reference range: negative mg/dl) Negati ve Not Available [address], [address], 04/18/2022 21:31:20 04/20/20 22 04/20/2022 urina lysis , dipst ick Glucose (reference range: negative mg/dl) Negati ve Not Available [address], [address], 04/18/2022 21:31:20 04/20/20 22 04/20/2022 urina lysis , dipst ick Appearance Clear Not Available [address], [address], 04/18/2022 21:31:20 04/20/20 22 04/20/2022 urina lysis , dipst ick Color Yellow Not Available [address], [address], 04/18/2022 21:31:20 07/27/19 23 07/26/2022 urina lysis , dipst ick Leukocytes (reference range: negative destiny/ l) Negati ve Not Available [place] [address], [place], [address], 07/26/2022 12:54:57 07/27/19 23 07/26/2022 urina lysis , dipst ick Nitrite (reference rage: negative mg/dl) negati ve Not Available [facility] [address] [place] [address] [address], [place], [address], 07/26/2022 12:54:57 07/27/19 23 07/26/2022 urina lysis , dipst ick Urobilinogen (reference range: 0.2-1 mg/dl) 0.2 Not Available [facility] [address], [place], [address], 07/26/2022 12:54:57 07/27/19 23 07/26/2022 urina lysis , dipst ick Protein (reference range: negative mg/dl) Negati ve Not Available [facility] [address] [facility] [address], [place], [address], 07/26/2022 12:54:57 07/27/19 23 07/26/2022 urina lysis , dipst ick pH (reference range: 5-7) 6.0 Not Available [facility] [address] [facility] [address], [place], [address], 07/26/2022 12:54:57 07/27/19 23 07/26/2022 urina lysis , dipst ick Blood (reference range: negative Bulmaro/ l) Negati ve Not Available [facility] [address], [place], [address], 07/26/2022 12:54:57 07/27/19 23 07/26/2022 urina lysis , dipst ick Specific [place] (reference range: 1.005-1.030) 1.025 Not Available s _[facility] [address], [place], [address], 07/26/2022 12:54:57 07/27/19 23 07/26/2022 urina lysis , dipst ick Ketone (reference range: negative mg/dl) Negati ve Not Available s[facility] [address], [place], [address], 07/26/2022 12:54:57 07/27/19 23 07/26/2022 urina lysis , dipst ick Bilirubin (reference range: negative mg/dl) Negati ve Not Available [facility] [address] [facility] [address], [place], [address], 07/26/2022 12:54:57 07/27/19 23 07/26/2022 urina lysis , dipst ick Glucose (reference range: negative mg/dl) Negati ve Not [facility] [address] [facility] [address], [place], [address], 07/26/2022 12:54:57 05/10/20 21 05/04/2021 XR, cysto ureth rogra m, retro grade No observ ation record ed. [id number] Not Available 07/13/2022 00:28:29 Result Notes None recorded. Problems Name Problem SNOMED Code Status Onset Date Resolution Date Notes Provider Name and Address Organization Details Recorded Time Nocturia 219841531 Active 022 Not Available [facility] 3 00:26:54 Malignant neoplasm of lateral wall of urinary bladder 602747974 Active 022 Not Available [facility] 3 00:26:54 Urethral stricture 63717062 Active 023 Gerard Lockett MD [address], [address], [place], [address] , [facility] [employer] 09:16:45 Problem Notes None recorded. Procedures Surgical History Date Name Laterality Status Provider Name and Address Organization Details Recorded Time 07/27/19 Cystoscopy (male) completed Gerard Lockett MD [address] [facility], [facility] [address], [place], [address], [facility] [employer] [facility] 07/26/2022 13:04:27 Appendectomy completed Not Available [facility] 07/13/2022 00:25:57 Neck Surgeries completed Not Available [facility] 07/13/2022 00:25:57 Imaging Results None recorded. Procedure Notes None recorded. Medical Equipment None [...] Available Not Available Vitals Date Recorded Body height Provider Name an d Address Organization Details Last Updated DateTime 07/26/2022 172.72 cm Ivette Concepcion MA [facility] [employer] 07/26/2022 12:31:46 Date Recorded Oxygen saturation Oxygen saturation in Arterial blood by Pulse oximetry Body temperature Heart rate Provider Name and Address Organization Details Last Updated DateTime 07/26/2022 97 % 97 % 98.4 [degF] 67 /min GIANFRANCO John [facility] [employer] [facility] 3 12:54:29 Date Recorded Body height Provider Name an d Address Organization Details Last Updated DateTime 08/10/2021 172.72 cm Not Available [facility] 3 00:26:33 Date Recorded Body mass index (BMI) Body height Oxygen saturation Oxygen saturation in Arterial blood by Pulse oximetry Heart rate Body temperature Body weight Provider Name and Address Organization Details Last Updated DateTime 2 26.6 kg/m2 172.72 cm 99 % 99 % 88 /min 98.4 [degF] 48982.6 6 g Not Available [facility] 3 00:26:34 Date Recorded Body mass index (BMI) Body height Oxygen saturation Oxygen saturation in Arterial blood by Pulse oximetry Heart rate Body temperature Body weight Systolic blood pressure Diastolic blood pressure Provider Name and Address Organization Details Last Updated DateTime 1 26.8 kg/m2 172.72 cm 99 % 99 % 94 /min 98.2 [degF] 92440.2 6 g 157 mm[Hg] 81 mm[Hg] Not Available [facility] 3 00:26:33 Date Recorded Body height Provider Name an d Address Organization Details Last Updated DateTime 05/12/2022 172.72 cm Not Available [facility] 3 00:26:33 Social History None recorded. Functional Status None recorded. Mental Status None recorded. Family History Relationship Description Onset Age of this Age Resolved Age Notes LastModified by Organization Details LastModified Time Brother Diabetes mellitus [id number] Not available 07/13/2022 00:26:00 Brother Malignant neoplasm of prostate [id number] Not available 07/13/2022 00:26:00 Sister Diabetes mellitus [id number] Not available 07/13/2022 00:26:00 Medical History Condition Response CYSTITIS N BLINDNESS N RHEUMATIC FEVER N KIDNEY STONES N BLADDER PROBLEMS N Enlarged Prostate N SLEEP APNEA N MRSA N INFECTIOUS DISEASE N LUNG DISEASE/DISORDER N PROSTATE N HEART ARRHYTHMIA N INSOMNIA N HISTORY OF DRUG ABUSE N RADIATION / CHEMOTHERAPY N COPD N HIGH CHOLESTEROL / HYPERLIPIDEMIA N HYPERTHYROIDISM N UTI N BLOOD DISEASES N EDEMA N HYPOTHYROIDISM N SHINGLES N BACK / NECK PROBLEMS N DEPRESSION (INCLUDING POST ) N BOWEL PROBLEMS N HAVE YOU BEEN HOSPITALIZED OR SEEN IN [facility] IN THE PAST YEAR ? N STROKE/TIA N THYROID DISEASE N BENIGN PROSTATIC HYPERPLASIA N DIALYSIS N OBESITY N GERD/NAUSEA N ANEURYSM N OSTEOPOROSIS N Increased Urination N URINARY/BLADDER/KIDNEY PROBLEMS N CORONARY ARTERY DISEASE (CAD) N ARTHRITIS [...] SNOMED-CT Code Diagnosis ICD10 Code Diagnosis Note [id number] MD BISI Healy_GMP[facility] [address] [address] 04/29/2021 00:00:00 04/30/2021 07:33:37 [id number] MD LYNDA Taylor [place] [address] 05/11/2021 00:00:00 05/11/2021 13:30:34 [id number] MD LYNDA Taylor [place] [address] 08/10/2021 00:00:00 08/10/2021 13:22:49 [id number] MD LYNDA Taylor [place] [address] 04/19/2022 00:00:00 04/19/2022 11:43:24 [id number] MD LYNDA Taylor [place] [address] 05/12/2022 00:00:00 05/22/2022 13:54:16 [id number] MD LYNDA Taylor [place] [address] 07/26/2022 12:17:14 07/26/2022 13:10:53 Urethral stricture 54460789 N35.919 :Fossa noviculari s narrowing requiring dilation for resectosco pe to pass Will observe for now Nocturia 789780629 R35.1 :I counseled the patient on behavioral [...] neoplasm of lateral wall of urinary bladder 895106272 C67.2 :03/[address] [address] AP - 3cm left lateral wall [...] Recorded Advance Directives Directive None Recorded Payers Insurance Date Sequence Insurance Name Policy Number Policy Thomas Covered Member ID Thomas Member ID Guarantor Name 04/22/2023 1 MED[place]ARE-[place] (MEDICARE) Palmer Landry [id number] Palmer Landry 04/22/2023 2 [place] Palmer Landry [id number] Palmer Landry Notes Date Note Type Note [...] bladder wall -PERTINENT & MOST RECENT IMAGIN03/[address] [address] AP - 3cm left lateral wall enhancing bladder mass; no hydronephrosis-MOS T RECENT CYSTOSCOPY: 04/2022 TURBT -MOST RECENT CYTOLOGY: 04/2021 - Negative -BLOOD THINNERS: 81mg ASA -SMOKING STATUS: Current, mostly marijuana INTERVAL HISTORY:08/10/2021 - Presents for surveillance cysto; no interval hematuria events. Bothered by nocturia. Reports he drinks fluids close to bedtime. Is on Citsszsffc78/7/202 2 - Presents for surveillance cysto; no [...] blood or infection Gerard Lockett MD [address] [facility] [address], [place], [address], [place] [facility] [employer] [facility] 07/26/2022 13:06:08
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
[2024-10-28 07:25] VITALS: BP 121/48; PULSE 62; RESP 18; TEMP 36.3; O2SAT 99
[2024-10-28] MEDS: LACTATED RINGERS 1,000 ML 150 ML IV CONT (07:35)
--- NOTE | 2024-10-28 07:57 | WPDANESEPPF ---
Anes - Initial Pre Proc Eval Procedure: Operation Date: 10/28/24 08:30 Proposed Procedures p EGD & Diagnostic Colonoscopy - Agustín Henning MD Date/Time: 10/28/24 07:57 Surgeon: Agustín Henning MD Pre Op Diagnosis: Iron deficiency anemia, unspecified Patient Data Age: 79 Gender: M Height: 1.73 m Weight: 80.7 kg Last Vital Signs Temp 36.3 C L 10/28/24 07:25 Pulse 62 10/28/24 07:25 Resp 18 10/28/24 07:25 BP 121/48 L 10/28/24 07:25 Pulse Ox 99 10/28/24 07:25 O2 Del Method Room Air 10/28/24 07:25 Allergies Allergy/AdvReac Type Severity Reaction Status Date / Time No Known Allergies Allergy Verified 10/28/24 07:22 Home Medications ?Medication ?Instructions ?Recorded ?Confirmed ?Type ascorbic acid (vitamin C) 500 mg 500 mg PO DAILY 09/17/23 10/28/24 History tablet tamsulosin 0.4 mg capsule (Flomax) 0.4 mg PO BID 12/06/23 10/28/24 History fluticasone fur. 200 mcg-umeclid 1 inh inhalation DAILY #60 ea 01/29/24 10/28/24 Rx 62.5 mcg-vilant 25 mcg inhalat.powder (Trelegy Ellipta) diclofenac sodium 1 % topical gel 4 g topical QID #100 grams 02/26/24 10/28/24 Rx tramadol 50 mg tablet 50 mg PO Q6-8H PRN pain #60 tabs 08/14/24 10/24/24 Rx aspirin 81 mg tablet,delayed 81 mg PO DAILY 08/20/24 10/24/24 History release atorvastatin 40 mg tablet See Rx Instructions .Route 08/25/24 10/28/24 Rx .COMPLEX #90 tabs tizanidine 2 mg tablet 1 mg (1/2 x 2 mg) PO BID PRN 09/16/24 10/24/24 Rx muscle spasticity #30 tabs ferrous sulfate 220 mg (44 mg 220 mg PO BID 09/25/24 10/28/24 History iron)/5 mL oral elixir metoprolol succinate 25 mg 12.5 mg PO DAILY 09/25/24 10/24/24 History tablet,extended release 24 hr trazodone 100 mg tablet 100 mg PO QHS PRN insomnia #90 tabs 09/25/24 10/24/24 Rx Patient hx anesthesia problems: none Family hx anesthesia problems: none Results Review: All pre-operative results and documents have been reviewed as part of the pre-operative evaluation. [facility] Past Medical History Medical History Left knee DJD Knee pain, left Marijuana use Coughing blood Spasm of thoracic back muscle Nocturia Allergic rhinitis Sinusitis Infrarenal abdominal aortic aneurysm, without rupture Abdominal aortic aneurysm (AAA) 3.0 cm to 5.5 cm in diameter in male Vitamin D deficiency, unspecified Other fatigue Bladder cancer Carotid bruit Abnormal MRI, lumbar spine Elevated PSA Elevated BUN Iron deficiency anemia Urine blood Heme positive stool Heart murmur Lumbar spondylosis Anemia Electrolyte abnormality Bilateral leg cramps Hip pain, bilateral Lumbago without sciatica Contracture of hand Trigger finger BPH loc w urin obs/LUTS Surgical History Surgical History Hx of transurethral destruction of bladder lesion History of appendectomy History of neck surgery Family History Family History Father Family history of malignant neoplasm Leukemia Sibling Family history of diabetes mellitus in first degree relative Alcohol abuse Obesity Diabetes mellitus Mother Family history of malignant neoplasm of ovary Sibling Obesity Diabetes mellitus Testicular cancer Social History Social History Smoking packs per day: 2 Smoking cigarettes per day: 40.0 Years smoked: 20 Smoking pack-years: 40.00 Smoking status: Former smoker Tobacco type: cigarettes Second hand tobacco smoke exposure: No Smoking end date: 10/10/73 Alcohol intake: current Alcohol use details: rarely Substance use: current Substance use type: marijuana Other substance usage details: smokes 1 joint every night and every morning Last use: 07/12/20 Do You Feel Safe in your Home?: Yes Lack of Transportation: No Lack of Food: Never True Current Housing: I Have Housing Concerned About Future Housing: No Difficulty Paying Gas/Electric Bills: No Difficulty Paying for Meds: No Currently Unemployed: No Education: High School Diploma/GED Difficulty w/ Childcare or Family Care: No Living arrangements: alone Occupation/Education: retired Additional occupation/education comments: [employer] Gender identity (if verbalized by the patient): Male Sexual Orientation (if Verbalized by the Patient): Straight or Heterosexual Spiritual care concerns: No Anes - Eval Final PreProcedure Day of Procedure 10/28/24 07:57 Patient weight: overweight Heart: regular rate and rhythm Lungs: decreased breath sounds Airway: Mallampati scale class III Neurological: alert and oriented Last oral intake: >/= 8 hours ASA classification: IV Emergent: no Anesthetic plan: proceed Anesthesia type and monitoring: general GIVS and standard monitoring Results Review: All pre-operative results and documents have been reviewed as part of the pre-operative evaluation. Informed Consent: The patient's anesthetic plan and its attendant risks and benefits were discussed with the patient/family/POA. Questions were solicited and answers provided to the satisfaction of the patient/family/POA.
--- NOTE | 2024-10-28 08:07 | PM.HPGS ---
History of Present Illness History of Present Illness Consent: Risks, benefits, and alternatives have been discussed and questions answered. Patient agrees to proceed with procedure. Chief complaint: Iron deficiency anemia, unspecified Narrative: Palmer Landry Sr. is a 79 year old male with known BRENNA but lately worsened, denies overt gib. 2020 had egd and colonoscopy that showed AVM treated with APC Review of Systems Review of Systems: All systems reviewed & are unremarkable except as noted in HPI and below PMFSH Past Medical History Medical History Left knee DJD Knee pain, left Marijuana use Coughing blood Spasm of thoracic back muscle Nocturia Allergic rhinitis Sinusitis Infrarenal abdominal aortic aneurysm, without rupture Abdominal aortic aneurysm (AAA) 3.0 cm to 5.5 cm in diameter in male Vitamin D deficiency, unspecified Other fatigue Bladder cancer Carotid bruit Abnormal MRI, lumbar spine Elevated PSA Elevated BUN Iron deficiency anemia Urine blood Heme positive stool Heart murmur Lumbar spondylosis Anemia Electrolyte abnormality Bilateral leg cramps Hip pain, bilateral Lumbago without sciatica Contracture of hand Trigger finger BPH loc w urin obs/LUTS Surgical History Surgical History Hx of transurethral destruction of bladder lesion History of appendectomy History of neck surgery Family History Family History Father Family history of malignant neoplasm Leukemia Sibling Family history of diabetes mellitus in first degree relative Alcohol abuse Obesity Diabetes mellitus Mother Family history of malignant neoplasm of ovary Sibling Obesity Diabetes mellitus Testicular cancer Social History Social History Smoking packs per day: 2 Smoking cigarettes per day: 40.0 Years smoked: 20 Smoking pack-years: 40.00 Smoking status: Former smoker Tobacco type: cigarettes Second hand tobacco smoke exposure: No Smoking end date: 10/10/73 Alcohol intake: current Alcohol use details: rarely Substance use: current Substance use type: marijuana Other substance usage details: smokes 1 joint every night and every morning Last use: 07/12/20 Do You Feel Safe in your Home?: Yes Lack of Transportation: No Lack of Food: Never True Current Housing: I Have Housing Concerned About Future Housing: No Difficulty Paying Gas/Electric Bills: No Difficulty Paying for Meds: No Currently Unemployed: No Education: High School Diploma/GED Difficulty w/ Childcare or Family Care: No Living arrangements: alone Occupation/Education: retired Additional occupation/education comments: [employer] Gender identity (if verbalized by the patient): Male Sexual Orientation (if Verbalized by the Patient): Straight or Heterosexual Spiritual care concerns: No Meds Home Medications and Allergies Home Medications ?Medication ?Instructions ?Recorded ?Confirmed ?Type ascorbic acid (vitamin C) 500 mg 500 mg PO DAILY 09/17/23 10/28/24 History tablet tamsulosin 0.4 mg capsule (Flomax) 0.4 mg PO BID 12/06/23 10/28/24 History fluticasone fur. 200 mcg-umeclid 1 inh inhalation DAILY #60 ea 01/29/24 10/28/24 Rx 62.5 mcg-vilant 25 mcg inhalat.powder (Trelegy Ellipta) diclofenac sodium 1 % topical gel 4 g topical QID #100 grams 02/26/24 10/28/24 Rx tramadol 50 mg tablet 50 mg PO Q6-8H PRN pain #60 tabs 08/14/24 10/24/24 Rx aspirin 81 mg tablet,delayed 81 mg PO DAILY 08/20/24 10/24/24 History release atorvastatin 40 mg tablet See Rx Instructions .Route 08/25/24 10/28/24 Rx .COMPLEX #90 tabs tizanidine 2 mg tablet 1 mg (1/2 x 2 mg) PO BID PRN 09/16/24 10/24/24 Rx muscle spasticity #30 tabs ferrous sulfate 220 mg (44 mg 220 mg PO BID 09/25/24 10/28/24 History iron)/5 mL oral elixir metoprolol succinate 25 mg 12.5 mg PO DAILY 09/25/24 10/24/24 History tablet,extended release 24 hr trazodone 100 mg tablet 100 mg PO QHS PRN insomnia #90 tabs 09/25/24 10/24/24 Rx Allergies Allergy/AdvReac Type Severity Reaction Status Date / Time No Known Allergies Allergy Verified 10/28/24 07:22 Vital Signs Vital Signs - 24 hr 10/28/24 07:25 Temperature 97.3 F L Pulse Rate 62 Respiratory Rate 18 Blood Pressure 121/48 L Pulse Oximetry 99 Oxygen Delivery Room Air Exam Const: General: comfortable and no acute distress HENMT: Face/Nose/Sinus: Normal nares present Eyes: General: appearance normal, both eyes and all related structures Neck: Neck: no JVD Resp: Auscultation: clear to auscultation bilaterally Cardio: Rate: regular rate Rhythm: regular rhythm GI: Inspection: non-distended GI Palp: Yes Soft to palpation Skin: General skin exam: normal color Neuro: General: gait normal Speech: normal speech Extrem: General: normal to inspection Psych: Mental Status: mental status grossly normal Assessment and Plan Assessment and plan (1) Iron deficiency anemia: Qualifiers: Iron deficiency anemia type: chronic blood loss Qualified Code(s): D50.0 - Iron deficiency anemia secondary to blood loss (chronic) Code(s): D50.9 - Iron deficiency anemia, unspecified Status: Acute Assessment and Plan: egd and colonoscopy
--- NOTE | 2024-10-28 08:16 | S_PTH ---
PATIENT: Palmer Landry . LOC: [facility] Monique#:[id number] AGE/SX: 79/M ROOM: RE10/28/[address]: Agustín Henning MD : 1945 BED: DIS: 10/28/2024 SPEC #: [id number] RECD: 10/28/24 10:19 STATUS: MICHAEL LOMELI #: [id number] VIJAY: 10/28/24 08:[address]: Agustín Henning DEPT: [facility] Surgical RECD BY: Sabino Bourne ENTERED: 10/28/24 10:19 SP TYPE: Surgical OTHR DR: Delvis Hernández MD Tissues: A - Gastric Biopsy B - Colon Polypectomy Procedures: Hematoxylin and Eosin Stain Gross and Microscopic Level 4 H.Pylori
--- NOTE | 2024-10-28 08:20 | SUR.OPER ---
EGD ended at 815. Colonoscopy started at 818.
[2024-10-28 08:39] VITALS: BP 102/45; PULSE 65; RESP 17; O2SAT 99
[2024-10-28 08:49] VITALS: BP 109/48; PULSE 62; RESP 18; O2SAT 99
[2024-10-28 08:59] VITALS: BP 110/49; PULSE 68; RESP 18; O2SAT 100
== END 2024-10-28 09:19 | disposition home or self-care (01) ==
PROVIDERS: PCP Family Medicine; Referring Provider Internal Medicine Hematology & Oncology; Visit Provider Internal Medicine Gastroenterology
PROC: 0DJ08ZZ Inspection of Upper Intestinal Tract, Via Natural or Artificial Opening Endoscopic (ICD-10-PCS; CPT 45378; principal; 2024-10-28 08:30)
DX: D50.9 Iron deficiency anemia, unspecified (principal); D12.4 Benign neoplasm of descending colon; K57.30 Diverticulosis of large intestine without perforation or abscess without bleeding; D50.0 Iron deficiency anemia secondary to blood loss (chronic); R19.5 Other fecal abnormalities; Q27.33 Arteriovenous malformation of digestive system vessel; K64.8 Other hemorrhoids; K29.50 Unspecified chronic gastritis without bleeding; B96.81 Helicobacter pylori [H. pylori] as the cause of diseases classified elsewhere; F12.90 Cannabis use, unspecified, uncomplicated; Z87.891 Personal history of nicotine dependence
CPT/HCPCS: 45381; 45385; 45388; 43239; 88305; 88342; J2003; J2704; J7120

== ENCOUNTER 2024-12-19 09:53 | Outpatient (CLI) | payer MEDICARE, MEDICAID, SELFPAY ==
--- OUTSIDE RECORDS SUMMARY | 2024-12-19 09:58 | XMS_ITS | Encounter Summary ---
Author Organization [facility] [employer] [facility] Address [address] [place] [address] Care Team Providers Care Funeral Pre Arrangement Counselor Name Role Phone Delvis Hernández MD Primary Care Provider [phone] Encounter Details Date Type Department Care Team ([facility] Contact Info) Description 12/17/2024 Orders Only [facility] Oncology and Hematology - [place] [address] [place] [address] Juan Em MD [facility] [employer] [address] [place] [phone] Social History Tobacco Use Types Packs/Day Years Used Date Smoking Tobacco: Former Cigarettes Smokeless Tobacco: Never Alcohol Use Standard Drinks/Week Comments Yes 0 (1 standard drink = 0.6 oz pur e alcohol) occasional Sex and Gender Information Value Date Recorded Sex Assigned at Not on file Legal Sex Male 1:58 PM CDT Gender Identity Not on file Sexual Orientation Not on file documented as of this encounter Plan of Treatment Upcoming Encounters Date Type Department Care Team (Late Contact Info) Description 02/20/2025 9:30 AM CDT Office Visit [facility] Oncology and Hematology - [place] [address] [place] [address] Juan Em MD [facility] [employer] [address] [place] [phone] documented as of this encounter Procedures Procedure Name Priority Date/Time Associated Diagnosis Comments IRON, TIBC, AND PERCENT SATURATION Routine 12/16/2024 11:29 AM CDT documented in this encounter Results * IRON, TIBC, AND PERCENT SATURATION (12/16/2024 11:29 AM CDT) Blood Juan Em MD CHEMISTRY ORDERABLES Final Resu lt documented in this encounter Visit Diagnoses Not on filedocumented in this encounter Care Teams Funeral Pre Arrangement Counselor Relationship Specialty Start Date End Date Delvis Hernández MD [address] [place] [address] PCP - General Family Practice 09/22/20 documented as of this encounter
--- OUTSIDE RECORDS SUMMARY | 2024-12-19 09:58 | XMS_ITS | Encounter Summary ---
Author Organization [facility] [employer] [facility] Address [address] [place] [address] Care Team Providers Care Premium Note Interest Calculator Clerk Name Role Phone Delvis Hernández MD Primary Care Provider [phone] Encounter Details Date Type Department Care Team (Late Contact Info) Description 12/16/2024 Orders Only [facility] Oncology and Hematology - [place] [address] [place] [address] Juan Em MD [facility] [employer] [address] [place] [phone] Social History Tobacco Use Types Packs/Day [...] Description 02/20/2025 9:30 AM CDT Office Visit [facility] Oncology and Hematology - [place] [address] [place] [address] Juan Em MD [address] [employer] [address] [place] [phone] documented as of this encounter Procedures Procedure Name Priority Date/Time Associated Diagnosis Comments CBC WITH AUTODIFFERENTIAL Routine 2024 4:01 PM CDT documented in this encounter Results * CBC WITH AUTODIFFERENTIAL (12/16/2024 4:01 PM CDT) Blood us Juan Em MD HEMATOLOGY ORDERABLES Final Res ult documented in this encounter Visit Diagnoses Not on filedocumented in this encounter Care Teams Premium Note Interest Calculator Clerk Relationship Specialty Start Date End Date Delvis Hernández MD [address] [place] [address] PCP - General Family Practice 09/22/20 documented as of this encounter
--- OUTSIDE RECORDS SUMMARY | 2024-12-19 09:58 | XMS_ITS | Clinical Summary ---
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 Depression 12/10/2015 Overview [...] on file Legal Sex Male 11:20 AM ATTENDING PATHOLOGIST Gender Identity Not on file Sexual Orientation Not on file Obstetrics History Last Filed Vital Signs Vital Sign Reading Time Taken Comments Blood Pressure 132/60 06/04/2024 9:24 AM ATTENDING PATHOLOGIST Pulse 91 06/04/2024 9:24 AM ATTENDING PATHOLOGIST Temperature 36.7 C (98 F) 11/09/2014 10:01 AM CDT Respiratory Rate 12 12/06/2016 9:39 AM CDT Oxygen Saturation 99% 06/04/2024 9:24 AM ATTENDING PATHOLOGIST Inhaled Oxygen Concentration - - Weight 82.1 kg (181 lb) 06/04/2024 9:24 AM ATTENDING PATHOLOGIST Height 172.7 cm (5' 8) 06/04/2024 9:24 AM ATTENDING PATHOLOGIST Body Mass Index 27.52 06/04/2024 9:24 AM ATTENDING PATHOLOGIST Plan of Treatment Health Maintenance Due Date Last Done Comments Depression Screening 1945 Fall Risk Assessment 1945 DTaP/Tdap/Td Vaccine (1 - Tdap) 08/05/1954 Hepatitis B Screening 08/05/1961 Abdominal Aortic Aneurysm (A AA) Screen 08/05/2008 Well Visit 65+ 08/05/2008 Zoster Vaccine (2 of 2) 12/27/2023 11/01/2023 Covid-19 Vaccine (2023-2 5 season) 2024 04/23/2024, 09/29/2023, 04/02/2023, Additional history exists Influenza Vaccine (#1) 2025 , 02/22/2023, 03/27/2022, Additional history exists Pneumococcal vaccine 65+ Completed 04/09/2015, 05/14 Insurance MEDICARE [facility] MEDICARE IDPA [facility] MEDICARE Care Teams Pointer Helper Relationship Specialty Start Date End Date Delvis Hernández MD PCP - General 12/10/15
--- OUTSIDE RECORDS SUMMARY | 2024-12-19 09:58 | XMS_ITS | Clinical Summary ---
Author Organization [facility] Address [facility] [place] [address] Care Team Providers Care Second Chef Name Role Phone Delvis Hernández MD Primary Care Provider [phone] Juan Em MD Unavailable [phone] Allergies No known active allergies Medications [...] 11:00 AM CDT Height 172.7 cm (5' 8) 09/10/2023 11:0 0 AM CDT Body Mass [...] this topic Insurance MEDICARE MEDICAID Care Teams Second Chef Relationship Specialty Start Date End Date Delvis Hernández MD [address] [address] PCP - General FAMILY PRACTICE 08/03/23 Juan Em MD [address] [facility] [address] [place] [address] HEMATOLOGY/ONCOLOGY 08/03/23
--- OUTSIDE RECORDS SUMMARY | 2024-12-19 09:58 | XMS_ITS | Encounter Summary ---
Author Organization [facility] Address [address] [place] [address] Care Team Providers Care Well Drill Operator Cable Tool Name Role Phone Delvis Hernández MD Primary Care Provider [phone] Encounter Details Date Type Department Care Team (Late st Contact Info) Description 12/17/2024 External Device Data STL ABSTRACTION Provider, Abstract NO ADDRESS ON FILE Social History Tobacco Use Types Packs/Day Years [...] Care Team (Late st Contact Info) Description 02/20/2025 9:30 AM CDT Office Visit [facility] Oncology and Hematology - [place] [address] [place] [address] [address] [place] [address] Juan Em MD [address] [facility] [address] [place] [address] documented as of this encounter Visit Diagnoses Not on filedocumented in this encounter Care Teams Well Drill Operator Cable Tool Relationship Specialty Start Date End Date Delvis Hernández MD [address] [place] [address] PCP - General Family Practice 09/22/20 documented as of this encounter
--- OUTSIDE RECORDS SUMMARY | 2024-12-19 09:58 | XMS_ITS | Clinical Summary ---
Author Organization [facility] Address [address] [place] [address] Care Team Providers Care Tub Washer Name Role Phone Delvis Hernández MD Primary Care Provider Allergies No known active allergies Medications tamsulosin (FLOMAX) 0.4 mg capsule Take 0.4 mg by mouth. 09/26/2019 Active pravastatin (PRAVACHOL) 10 mg tablet Take 10 mg by mouth daily. 09/09/2020 Active tiZANidine (ZANAFLEX) 4 mg Tablet Take 4 mg by mouth every 8 hours as needed. 11/11/2023 Active aspirin (ECOTRIN EC) 81 mg Tablet, Delayed Release (E.C.) Take 81 mg by mouth daily. Active traZODone (DESYREL) 50 mg tablet Take 50 mg by mouth daily at bedtime. 11/22/2023 Active atorvastatin (LIPITOR) 40 mg tablet Take 40 mg by mouth daily. Active ferrous sulfate (IRON SULFATE) 220 mg (44 mg iron)/5 mL Elixir elixir Take 5 mL (220 mg) by mouth daily with breakfast. 408 mL 3 12/17/2024 Active ferrous sulfate (IRON SULFATE) 220 mg (44 mg iron)/5 mL Elixir elixir TAKE 6.8ML BY MOUTH TWICE DAILY 408 mL 1 09/03/2024 12/18/19 Discontinu ed(Reorder ) Active Problems Problem Noted Date Diagnosed Date Iron deficiency anemia 09/22/2020 Encounters Date Type Department Care Team Description 12/17/2024 11:15 AM CDT Office Visit [facility] Oncology and Hematology - [place] [address] [place] [phone] Juan Em MD Chronic anemia (Primary Dx) 12/17/2024 External Device Data STL ABSTRACTION Provider, Abstract 12/17/2024 Orders Only [facility] Oncology and Hematology - [place] [address] [place] [phone] Juan Em MD 12/16/2024 Refill [facility] Oncology and Hematology - [place] [address] [place] [phone] Juan Em MD 12/16/2024 Orders Only [facility] Oncology and Hematology - [place] [address] [place] [phone] Juan Em MD 12/04/2024 Telephone [facility] Oncology and Hematology - [place] [address] [place] [address] Juan Em MD Dental Surgery Questions 11/26/2024 External Device Data STL ABSTRACTION Provider, Abstract 11/26/2024 External Device Data STL ABSTRACTION Provider, Abstract 11/26/2024 External Device Data STL ABSTRACTION Provider, Abstract 11/24/2024 Orders Only [facility] Oncology and Hematology - [place] [address] [place] [address] Juan Em MD Chronic anemia (Primary Dx) 10/28/2024 External Device Data STL ABSTRACTION Provider, Abstract 10/23/2024 Orders Only [facility] Oncology and Hematology - [place] [address] [place] [address] Juan Em MD Iron deficiency anemia, unspecified iron deficiency anemia type (Primary Dx) 10/17/2024 Orders Only [facility] Oncology and Hematology - [place] [address] [place] [phone] Juan Em MD 10/16/2024 9:30 AM CDT Office Visit [facility] Oncology and Hematology - [place] [address] [place] [address] Juan Em MD Iron deficiency anemia, unspecified iron deficiency anemia type (Primary Dx) 10/10/2024 Orders Only [facility] Oncology and Hematology [place] [address] [place] [phone] Juan Em MD 10/10/2024 Abstract [facility] Oncology and Hematology [place] [address] [place] [phone] Juan Em MD 10/09/2024 Orders Only [facility] Oncology and Hematology [place] [address] [place] [phone] Juan Em MD Chronic anemia (Primary Dx) [...] Sign Reading Time Taken Comments Blood Pressure 116/57 12/17/2024 11:01 AM CDT Pulse 77 10/16/2024 9:18 AM CDT Temperature 36.8 C (98.3 F) 12/17/2024 11:01 AM CDT Respiratory Rate 15 12/17/2024 11:01 AM CDT Oxygen Saturation 97% 12/17/2024 11:01 AM CDT Inhaled Oxygen Concentration - - Weight 80.3 kg (177 lb) 12/17/2024 11:01 AM CDT Height 172.7 cm (5' 8) 10/13/2021 10:09 AM CDT Body Mass Index 26.91 10/13/2021 10:09 AM CDT Plan of Treatment Upcoming Encounters Date Type Department Care Team (Late st Contact Info) Description 02/20/2025 9:30 AM CDT Office Visit [facility] Oncology and Hematology - [place] [address] [facility] [address] [place] [address] Juan Em MD [address] [facility] [address] [place] [address] Health Maintenance Due Date Last Done Comments DTAP/TDAP/TD VACCINES (1 - Tdap) 08/05/1962 Traditional Medicare (ACO) A nnual Wellness Visit 08/05/1962 PNEUMOCOCCAL VACCINE 50+ YEA RS (1 of 1 - PCV) 08/05/1993 ZOSTER VACCINE (1 of 2) 08/05/1993 RSV VACCINE (60+ or ) (1 - 1-dose 75+ series) 08/05/2018 INFLUENZA VACCINE (#1) 2024 COLORECTAL SCREENING Discontinued 10/28/2024, 10/28/2024, 07/23/2020, Additional history exists Colorectal Cancer Screening Discontinued FIT-DNA Q 3 years Discontinued FIT/FOBT Q 1 year Discontinued Flex Sig/CT Colonography Q 5 years Discontinued Procedures Procedure Name Priority Date/Time Associated Diagnosis Comments CBC WITH AUTODIFFERENTIAL Routine 2024 4:01 PM CDT IRON, TIBC, AND PERCENT SATURATION Routine 12/16/2024 11:29 AM CDT IRON PANEL Routine 10/16/2024 2:07 PM CDT CBC WITH DIFFERENTIAL Routine 10/16/2024 1:28 PM CDT TYPE AND SCREEN Routine 10/09/2024 12:48 PM CDT IRON PANEL Routine 10/09/2024 12:18 PM CDT CBC WITH DIFFERENTIAL Routine 10/09/2024 11:10 AM CDT from Last 3 Months Results * CBC WITH AUTODIFFERENTIAL (12/16/2024 4:01 PM CDT) Blood Result [facility] us Juan Em MD HEMATOLOGY ORDERABLES Final Res ult * IRON, TIBC, AND PERCENT SATURATION (12/16/2024 11:29 AM CDT) Blood us Juan Em MD CHEMISTRY ORDERABLES Final Resu lt * IRON PANEL (10/16/2024 2:07 PM CDT) Only the most recent of2 resultswithin the time period is included. Blood Result [facility] us Juan Em MD CHEMISTRY ORDERABLES Final Resu lt * CBC WITH DIFFERENTIAL (10/16/2024 1:28 PM CDT) Only the most recent of2 resultswithin the time period is included. Blood Result [facility] us Juan Em MD HEMATOLOGY ORDERABLES Final Res ult * TYPE AND SCREEN (10/09/2024 12:48 PM CDT) Blood Result [facility] us Juan Em MD BLOOD BANK ORDERABLES Final Res ult from Last 3 Months Insurance MEDICAID [place] MEDICARE PART A AND B Care Teams Tub Washer Relationship Specialty Start Date End Date Delvis Hernández MD [address] [place] [address] PCP - General Family Practice 09/22/20
--- OUTSIDE RECORDS SUMMARY | 2024-12-19 09:58 | XMS_ITS | Encounter Summary ---
Author Organization [facility] [employer] [facility] Address [address] [place] [address] Care Team Providers Care Timekeeping Supervisor Name Role Phone Delvis Hernández MD Primary Care Provider [phone] Reason for Visit * Reason Comments Med Refill Encounter Details Date Type Department Care Team ([facility] Contact Info) Description 12/16/2024 Refill [facility] Oncology and Hematology - [place] [address] [place] [address] Juan Em MD [address] [employer] [address] [place] [phone] Social History Tobacco Use Types Packs/Day [...] Upcoming Encounters Date Type Department Care Team ([facility] Contact Info) Description 02/20/2025 9:30 AM CDT Office Visit [facility] Oncology and Hematology - [place] [address] [place] [address] Juan Em MD [address] [employer] [address] [place] [phone] documented as of this encounter Visit Diagnoses Not on filedocumented in this encounter Care Teams Timekeeping Supervisor Relationship Specialty Start Date End Date Delvis Hernández MD [address] [place] [address] PCP - General Family Practice 09/22/20 documented as of this encounter
== END 2024-12-19 09:54 | disposition home or self-care (01) ==
LOC: ANHLAB 09:56
PROVIDERS: PCP Family Medicine; Visit Provider Nurse Practitioner
DX: K29.70 Gastritis, unspecified, without bleeding (principal); B96.81 Helicobacter pylori [H. pylori] as the cause of diseases classified elsewhere
CPT/HCPCS: 87338

== ENCOUNTER 2025-02-17 12:04 | Outpatient (CLI) | payer MEDICARE, MEDICAID, SELFPAY ==
--- OUTSIDE RECORDS SUMMARY | 2025-02-17 13:08 | XMS_ITS | Clinical Summary ---
Author Organization [facility] Address [address] [place] [address] Care Team Providers Care Language Pathologist Name Role Phone Delvis Hernández MD Primary [...] with breakfast. 408 mL 3 12/17/2024 Active Active Problems Problem Noted Date Diagnosed Date Iron deficiency anemia 09/22/2020 Encounters Date Type Department Care Team Description 01/27/2025 External Device Data STL ABSTRACTION Provider, Abstract 01/27/2025 External Device Data [facility] ABSTRACTION Provider, Abstract 01/05/2025 Telephone [facility] Oncology [facility] Hematology - [place] [address] [place] [address] Juan Em MD Surgical Clearance 12/31/2024 External Device Data ST[facility] ABSTRACTION Provider, Abstract 12/30/2024 External Device Data [facility] ABSTRACTION Provider, Abstract 12/17/2024 11:15 AM CDT Office Visit [facility] [address] [place] [address] Juan Em MD Chronic anemia (Primary Dx) 12/17/2024 External Device Data STL ABSTRACTION Provider, Abstract 12/17/2024 Orders Only [facility] [address] [place] [address] Juan Em MD 12/16/2024 Refill [facility] H[facility] [address] [place] [address] Juan Em MD 12/16/2024 Orders Only [facility] Hematology [facility] [address] [place] [address] Juan Em MD 12/04/2024 Telephone [facility] On[facility] Hematology [facility] [address] [place] [address] Juan Em MD Dental Surgery Questions 11/26/2024 External Device Data STL ABSTRACTION Provider, Abstract 11/26/2024 External Device Data STL ABSTRACTION Provider, Abstract 11/26/2024 External Device Data STL ABSTRACTION Provider, Abstract 11/24/2024 Orders Only [facility] Hematology [facility] [address] [place] [address] Juan Em MD Chronic anemia (Primary Dx) from Last 3 Months Family History Relation [...] Description 02/20/2025 9:30 AM CDT Office Visit [facility] On[facility] Hematology - [place] [address] [facility] [address] [place] [address] Juan Em MD [address] [facility] [address] [place] [address] Health Maintenance Due Date Last [...] PERCENT SATURATION Routine 12/16/2024 11:29 AM CDT from Last 3 Months Results * CBC WITH AUTODIFFERENTIAL (12/16/2024 4:01 PM CDT) Blood Juan Em MD HEMATOLOGY ORDERABLES Final Res ult * IRON, TIBC, AND PERCENT SATURATION (12/16/2024 11:29 AM CDT) Blood Juan Em MD CHEMISTRY ORDERABLES Final Resu lt from Last 3 Months Insurance MEDICAID [place] MEDICARE PART A AND B Care Teams Language Pathologist Relationship Specialty Start Date End Date Delvis Hernández MD [address] [place] [address] PCP - General Family Practice 09/22/20
--- OUTSIDE RECORDS SUMMARY | 2025-02-17 13:08 | XMS_ITS | Clinical Summary ---
Author Organization [facility] Address [facility] [place] [address] Care Team Providers Care Room Maid Name Role Phone Delvis Hernández MD Primary Care Provider [phone] Juan Em MD Unavailable [phone] Allergies No known active allergies Medications [...] Wellness Visit 08/05/2008 COVID-19 Vaccine ( season) 2025 04/02/2023, 03/27/2022, 12/01/2021, Additional history exists Influenza Adult (#1) 2025 03/17/2019, 03/28/2018, 01/31/2017, Additional history exists Pneumococcal Vaccine: 50+ Years [...] this topic Insurance MEDICARE MEDICAID Care Teams Room Maid Relationship Specialty Start Date End Date Delvis Hernández MD [address] [address] PCP - General FAMILY PRACTICE 08/03/23 Juan Em MD [address] [facility] [address] [place] [address] HEMATOLOGY/ONCOLOGY 08/03/23
--- OUTSIDE RECORDS SUMMARY | 2025-02-17 13:09 | XMS_ITS | Clinical Summary ---
Author Organization [facility] [address] Address [address] [place] [address] Care Team Providers Care Bread Pan Greaser Name Role Phone Delvis Hernández MD Primary Care Provider [phone] Allergies No known active allergies Medications aspirin [...] artery disease) Coronary artery disease invo lving [place] coronary artery of [place] heart without angina pectoris 12/10/2015 Overview (08/17/2016): Coronary artery disease involving [place] coronary artery of [place] heart without angina pectoris Depression 12/10/2015 Overview [...] on file Legal Sex Male 11:20 AM DIRECTOR TITLE Gender Identity Not on file Sexual Orientation Not on file Obstetrics History Last Filed Vital Signs Vital Sign Reading Time Taken Comments Blood Pressure 132/60 06/04/2024 9:24 AM DIRECTOR TITLE Pulse 91 06/04/2024 9:24 AM DIRECTOR TITLE Temperature 36.7 C (98 F) 11/09/2014 10:01 AM CDT Respiratory Rate 12 12/06/2016 9:39 AM CDT Oxygen Saturation 99% 06/04/2024 9:24 AM DIRECTOR TITLE Inhaled Oxygen Concentration - - Weight 82.1 kg (181 lb) 06/04/2024 9:24 AM DIRECTOR TITLE Height 172.7 cm (5' 8) 06/04/2024 9:24 AM DIRECTOR TITLE Body Mass Index 27.52 06/04/2024 9:24 AM DIRECTOR TITLE Plan of Treatment Health Maintenance Due Date Last Done Comments Depression Screening 1945 Fall Risk Assessment 1945 DTaP/Tdap/Td Vaccine (1 - Tdap) 08/05/1954 Hepatitis B Screening 08[birth year]05[birth year]1961 Abdominal Aortic Aneurysm (A AA) Screen 08/05/2008 Well Visit 65+ 08/05/2008 Zoster Vaccine (2 of 2) 12/27/2023 11/01/2023 Covid-19 Vaccine (2023-2 5 season) 2025 04/23/2024, 09/29/2023, 04/02/2023, Additional history exists Influenza Vaccine (#1) 2025 , 02/22/2023, 03/27/2022, Additional history exists Pneumococcal vaccine 65+ Completed 04/09/2015, 05/14 Insurance MEDICARE [facility] MEDICARE [place] [facility] [place] [address] Care Teams Bread Pan Greaser Relationship Specialty Start Date End Date Delvis Hernández MD PCP - General 12/10/15
== END 2025-02-17 12:05 | disposition home or self-care (01) ==
PROVIDERS: PCP Family Medicine; Visit Provider Nurse Practitioner
DX: K29.70 Gastritis, unspecified, without bleeding (principal); B96.81 Helicobacter pylori [H. pylori] as the cause of diseases classified elsewhere
CPT/HCPCS: 87338